=== PATIENT | male | born 1960 | race Caucasian/White ===

== ENCOUNTER → 2016-12-08 | Outpatient (CLI) | payer BC ==
[2016-12-08 13:33] LABS: CH 32.6; CHCM 33.5; HCT 49.9 % (39.0-53.0); HDW 2.37; HGB 16.6 gm/dL (13.0-17.5); MCH 32.5 pg (25.0-35.0); MCHC 33.3 g/dL (31.0-37.0); MCV 97.6 fL (80.0-100.0); Mean Platelet Volume 8.1; RBC 5.11 m/uL (4.30-5.90); RDW 12.6 % (11.5-15.5); WBC 6.9 k/uL (3.8-10.6)
[2016-12-08 13:37] LABS: ALT 30 U/L (21-72); AST 26 U/L (17-59); Alkaline Phosphatase 73 U/L (38-126); Anion Gap 9 mmol/L; Blood Urea Nitrogen 22 mg/dL (9-20); Calcium 9.5 mg/dL (8.4-10.2); Carbon Dioxide 23 mmol/L (22-30); Chloride 108 mmol/L (98-107); Glucose 81 mg/dL (74-99); Non-African American GFR(MDRD) >60 (>60 ml/min/1.73 sqM); Potassium 4.5 mmol/L (3.5-5.1); Sodium 140 mmol/L (137-145); Total Bilirubin 0.8 mg/dL (0.2-1.3); Total Protein 6.6 g/dL (6.3-8.2)
== END | disposition home or self-care (01) ==
LOC: LABWHC1 13:02
PROVIDERS: ATTEND Internal Medicine Clinical Cardiac Electrophysiology
DX: I48.1 Persistent atrial fibrillation (principal); I42.0 Dilated cardiomyopathy
CPT/HCPCS: 36415; 80053; 84443; 85027

== ENCOUNTER 2016-12-20 06:06 | Day surgery (SDC) | payer BC ==
[2016-12-19 09:14] VITALS: BMI 28.8
[~2016-12-20 06:06] MED LIST: SODIUM CHLORIDE 0.9% 1,000 ML IV SCH
[2016-12-20] MEDS ORDERED: IV FLUID CONTINUATION 1,000 ML IV ONE (07:08)
[2016-12-20] MEDS ORDERED: PHENYLEPHRINE-0.9% NACL SYG 1 MG/10 ML SYRINGE ONE (07:15)
[2016-12-20] MEDS ORDERED: LIDOCAINE 1% INJ 10MG/ML (20 ML MDV) ONE (07:15)
[2016-12-20] MEDS ORDERED: PROPOFOL 10 MG/ML 20 ML VIAL IV ONE (07:15)
[2016-12-20] MEDS ORDERED: LACTATED RINGERS 1,000 ML IV ONE (07:52)
--- NOTE | 2016-12-20 07:55 | P.PCN ---
Preoperative Diagnosis: Twelve-lead ECG preprocedure Patient was placed on telemetry and he appeared to have P waves there for twelve -lead ECG was performed Twelve-lead ECG shows atrial tachycardia short cycle length organized atrial activity that resembles P waves that he was not in sinus rhythm Electrical cardioversion for atrial fibrillation Diagnosis, symptomatic atrial fibrillation drug refractory 360 J biphasic shock was delivered in the AP configuration Wide complex tachycardia noted initially that spontaneously settled and subsided and patient remained in sinus rhythm thereafter Likely short burst of ventricular tachycardia followed by resumption of sinus rhythm Twelve-lead ECG postprocedure Sinus rhythm normal VA and QT interval of about 440 ms on dofetilide Plan Continue ELIQUIS carvedilol Lasix losartan and Crestor Aldactone Changes in medications Follow-up with Dr. Dominguez in 1 week Anesthesia: MAC Disposition: same day
[2016-12-20 11:00] VITALS: BP 126/73; PULSE 70; RESP 20
--- NOTE | 2016-12-20 13:12 | P.PCN ---
Preoperative Diagnosis: Twelve-lead ECG prior to procedure Patient was placed on telemetry and it appeared that he had P waves there for twelve-lead ECG was obtained This showed atrial fibrillation, organized rapid atrial tachycardia, not sinus rhythm Procedure Electrical cardioversion for atrial fibrillation, persistent, organized Symptomatic A. fib with tiredness and fatigue Successful electrical cardioversion with a 360 J biphasic shock On normal nonsustained ventricular tachycardia noted spontaneous termination Conversion to sinus rhythm successful Postprocedure 12-lead ECG Sinus mechanism normal MI and QT interval 440 ms Plan continue ELIQUIS carvedilol Lasix losartan Crestor and Aldactone Follow Dr. DALIA Dominguez in a week Anesthesia: MAC Disposition: same day
== END 2016-12-20 09:35 | disposition home or self-care (01) ==
LOC: CATHEP 06:06
PROVIDERS: ATTEND Internal Medicine Clinical Cardiac Electrophysiology
DX: I48.1 Persistent atrial fibrillation (principal); I11.0 Hypertensive heart disease with heart failure; I50.22 Chronic systolic (congestive) heart failure; I42.8 Other cardiomyopathies; E78.5 Hyperlipidemia, unspecified; Z82.49 Family history of ischemic heart disease and other diseases of the circulatory system; I25.10 Atherosclerotic heart disease of native coronary artery without angina pectoris; Z87.891 Personal history of nicotine dependence; I49.9 Cardiac arrhythmia, unspecified; G47.33 Obstructive sleep apnea (adult) (pediatric); M10.9 Gout, unspecified; B39.9 Histoplasmosis, unspecified; Z79.01 Long term (current) use of anticoagulants; Z79.899 Other long term (current) drug therapy; Z88.0 Allergy status to penicillin; Z88.8 Allergy status to other drugs, medicaments and biological substances; Z91.041 Radiographic dye allergy status
CPT/HCPCS: 93005; 92960; J2001; J2370; J2704

== ENCOUNTER → 2017-01-12 | Outpatient (CLI) | payer BC ==
[2017-01-12 09:25] LABS: Calcium 9.1 mg/dL (8.4-10.2); Potassium 4.1 mmol/L (3.5-5.1)
== END ==
LOC: LABWHC1 08:48
PROVIDERS: ATTEND Internal Medicine Interventional Cardiology
DX: I50.9 Heart failure, unspecified (principal); I48.91 Unspecified atrial fibrillation
CPT/HCPCS: 36415; 80048

== ENCOUNTER → 2017-01-24 | Outpatient (CLI) | payer BC ==
[2017-01-24 12:55] LABS: CH 33.2; CHCM 34.1; HDW 2.36; HGB 17.9 gm/dL (13.0-17.5); MCH 32.3 pg (25.0-35.0); MCHC 33.1 g/dL (31.0-37.0); MCV 97.8 fL (80.0-100.0); Mean Platelet Volume 8.1; RBC 5.53 m/uL (4.30-5.90); RDW 12.7 % (11.5-15.5); WBC 5.8 k/uL (3.8-10.6)
[2017-01-24 13:08] LABS: Anion Gap 10 mmol/L; Blood Urea Nitrogen 33 mg/dL (9-20); Calcium 9.5 mg/dL (8.4-10.2); Carbon Dioxide 26 mmol/L (22-30); Chloride 106 mmol/L (98-107); Glucose 115 mg/dL (74-99); Non-African American GFR(MDRD) 52 (>60 ml/min/1.73 sqM); Potassium 4.4 mmol/L (3.5-5.1); Sodium 142 mmol/L (137-145)
== END ==
LOC: LABWHC1 12:40
PROVIDERS: ATTEND Internal Medicine Interventional Cardiology
DX: I50.9 Heart failure, unspecified (principal)
CPT/HCPCS: 36415; 80048; 85027

== ENCOUNTER 2017-01-30 06:16 | Observation (INO) | payer BC ==
[2017-01-30] MEDS ORDERED: SODIUM CHLORIDE 0.9% 1,000 ML IV ONE (06:54)
[2017-01-30] MEDS ORDERED: fentaNYL (PF) 50 MCG/ML 2 ML AMP ONE (07:41)
[2017-01-30] MEDS ORDERED: NEOSTIGMINE 1 MG/ML 10 ML VIAL ONE (07:41)
[2017-01-30] MEDS ORDERED: ETOMIDATE 2 MG/ML 10 ML VIAL ONE (07:41)
[2017-01-30] MEDS ORDERED: PHENYLEPHRINE-0.9% NACL SYG 1 MG/10 ML SYRINGE ONE (07:41)
[2017-01-30] MEDS ORDERED: MIDAZOLAM 2 MG/2 ML VIAL ONE (07:41)
[2017-01-30] MEDS ORDERED: SUCCINYLCHOLINE CHLORIDE 100 MG/5 ML SYR IV ONE (07:41)
[2017-01-30] MEDS ORDERED: ROCURONIUM BROMIDE 10 MG/ML 10 ML VIAL IV ONE (07:41)
[2017-01-30] MEDS ORDERED: PROTAMINE SULFATE 10 MG/ML 5 ML VIAL IV ONE (07:41)
[2017-01-30] MEDS ORDERED: GLYCOPYRROLATE 0.2 MG/ML 2 ML VIAL ONE (07:41)
[2017-01-30] MEDS ORDERED: FUROSEMIDE 10 MG/ML 2 ML VIAL ONE (07:41)
[2017-01-30] MEDS ORDERED: ePHEDrine 50 MG/ML 1 ML AMP ONE (07:41)
[2017-01-30] MEDS ORDERED: HEPARIN SODIUM,PORCINE 5,000 UNIT/ML 1 ML VIAL ONE (07:41)
--- NOTE | 2017-01-30 08:15 | P.PCN ---
Preoperative Diagnosis: Preprocedure ICD interrogation with reprogramming Patient has a dual-chamber [employer] medical ICD. RV threshold 0.75 V at 0.5 ms R waves 12 mV, pacing impedance 550 ohms and high-voltage impedance 71 ohms. Atrial pacing impedance 450 ohms, atrial sensing 3.3 mV Device was reprogrammed to DDD mode, 50 PPM ICD therapies were turned off prior to the procedure Postoperative Diagnosis: Procedure(s) Performed: Implants: Indications for Procedure: Operative Findings: Description of Procedure:
[2017-01-30] MEDS ORDERED: LIDOCAINE 2% INJ 20 MG/ML SQ ONE (08:25)
[2017-01-30] MEDS ORDERED: HEPARIN SODIUM,PORCINE/D5W PMX 25,000 UNIT in DEXTROSE/WATER 1 500ML.BAG IV ONE (08:37)
[2017-01-30] MEDS ORDERED: HEPARIN SODIUM (1,000 UNIT/ML) 1,000 UNIT in SODIUM CHLORIDE 0.9% 1,000 ML IRRIGATION ONE ×2 (09:00→12:15)
[2017-01-30] MEDS ORDERED: HEPARIN SODIUM 1,000 UNIT/ML VIAL IV ONE (09:21)
[2017-01-30] MEDS ORDERED: ACETAMINOPHEN IV (For NPO) 1,000 MG in EMPTY BAG 1 BAG IVPB ONE (13:05)
[2017-01-30] MEDS ORDERED: ACETAMINOPHEN TAB 325 MG TAB PO PRN (13:05)
[2017-01-30] MEDS ORDERED: HYDROcodone/APAP 5-325MG 1 EACH TAB PO PRN (13:05)
[2017-01-30] MEDS: LACTATED RINGERS 1,000 ML IV SCH (16:42)
[2017-01-30] MEDS: CARVEDILOL 6.25 MG TAB PO SCH (16:42)
[2017-01-30] MEDS ORDERED: ONDANSETRON 4 MG/2 ML VIAL IVP PRN (16:43)
[2017-01-30] MEDS: SODIUM CHLORIDE 0.9% 1,000 ML IV SCH (17:04)
[2017-01-30 18:36] VITALS: BMI 27.3
[2017-01-30] MEDS ORDERED: FUROSEMIDE 20 MG TAB PO SCH (21:00)
[2017-01-30] MEDS ORDERED: LOSARTAN 25 MG TAB PO SCH (21:00)
[2017-01-30] MEDS ORDERED: SPIRONOLACTONE 25 MG TAB PO SCH (21:00)
[2017-01-30] MEDS: APIXABAN 5 MG TAB PO SCH (21:08)
[2017-01-31] MEDS: LACTATED RINGERS 1,000 ML IV SCH (03:42)
[2017-01-31] MEDS: SODIUM CHLORIDE 0.9% 1,000 ML IV SCH (03:43)
[2017-01-31] MEDS: CARVEDILOL 6.25 MG TAB PO SCH (06:39)
[2017-01-31 07:05] LABS: Basophils % (A) 0 %; CH 32.8; CHCM 32.8; Eosinophils % (A) 0 %; HCT 49.8 % (39.0-53.0); HDW 2.08; HGB 16.1 gm/dL (13.0-17.5); Luc # (Auto) 0.13; Luc % (Auto) 1; Lymphocytes # (A) 0.6 k/uL (1.0-4.8); Lymphocytes % (A) 6 %; MCH 32.3 pg (25.0-35.0); MCHC 32.3 g/dL (31.0-37.0); MCV 100.2 fL (80.0-100.0); Mean Platelet Volume 8.3; Monocytes # (A) 0.7 k/uL (0-1.0); Monocytes % (A) 7 %; Neutrophils # (A) 8.8 k/uL (1.3-7.7); Neutrophils % (A) 86 %; RBC 4.97 m/uL (4.30-5.90); RDW 12.9 % (11.5-15.5); WBC 10.2 k/uL (3.8-10.6); WBC (Perox) 10.33
[2017-01-31 07:26] LABS: Calcium 8.6 mg/dL (8.4-10.2); Potassium 4.7 mmol/L (3.5-5.1)
--- NOTE | 2017-01-31 07:57 | P.PCN ---
Preoperative Diagnosis: Indication for the procedure Atrial fibrillation, sustained, symptomatic with worsening heart failure Procedures performed Preprocedure dual-chamber ICD interrogation with reprogramming, dictated separately Hemodynamic monitoring and sampling via right femoral artery cannula/sheaths Comprehensive diagnostic EP study Coronary sinus pacing and recording Programmed stimulation following Isuprel Intracardiac echocardiography Left and right transseptal catheterization Antral isolation of the pulmonary veins, right superior anteriorly, right inferior inferiorly and left superior at the roof SVT ablation/linear A. fib ablation along the anterior roof and termination of the tachycardia Postprocedure dual-chamber ICD interrogation with reprogramming Postoperative Diagnosis: Procedure(s) Performed: Implants: Disposition: floor Indications for Procedure: Operative Findings: Description of Procedure:
--- NOTE | 2017-01-31 08:00 | P.DS ---
Providers Date of admission: 01/30/17 19:41 Attending physician: Steven Casiano Primary care physician: Blanca Cazares [facility] Course: Patient is doing well. He is sitting up at the age of the bed eating breakfast. Throat is dry but no odynophagia no chest discomfort no shortness of breath no cough. Groin site is healed well and no dizziness or palpitations On telemetry rhythm is regular On examination Afebrile 97.2F, pulse rate in the 60s, blood pressure 90/51 mmHg Breath sounds are normal no rhonchi no crackles Heart sounds are normal normal S1 normal S2 no murmurs Abdomen soft Impression Persistent symptomatic atrial fibrillation Severe cardiomyopathy, nonischemic Severe class III heart failure during atrial fibrillation Status post linear A. fib ablation, roofline, as well as PVI Patient is in sinus rhythm Plan Resume all cardiac medications and likely discharge later today if he remains stable Patient Condition at Discharge: Stable Plan - Discharge Summary New Discharge Prescriptions: No Action Rosuvastatin [Crestor] 5 mg PO Q48H Furosemide [Lasix] 40 mg PO DAILY Losartan [Cozaar] 25 mg PO HS Spironolactone [Aldactone] 25 mg PO HS Digoxin [Digoxin] 125 mcg PO DAILY Furosemide [Lasix] 20 mg PO HS Escitalopram [Lexapro] 10 mg PO DAILY Carvedilol [Coreg] 6.25 mg PO BID Apixaban [Eliquis] 5 mg PO BID Discharge Medication List Rosuvastatin [Crestor] 5 mg PO Q48H 10/25/14 [History] Furosemide [Lasix] 40 mg PO DAILY 12/15/14 [History] Losartan [Cozaar] 25 mg PO HS 01/13/15 [History] Spironolactone [Aldactone] 25 mg PO HS 01/23/15 [History] Digoxin [Digoxin] 125 mcg PO DAILY 01/26/17 [History] Apixaban [Eliquis] 5 mg PO BID 01/30/17 [History] Carvedilol [Coreg] 6.25 mg PO BID 01/30/17 [History] Escitalopram [Lexapro] 10 mg PO DAILY 01/30/17 [History] Furosemide [Lasix] 20 mg PO HS 01/30/17 [History]
[2017-01-31] MEDS: APIXABAN 5 MG TAB PO SCH (08:35)
[2017-01-31] MEDS ORDERED: ESCITALOPRAM 10 MG TAB PO SCH (09:00)
[2017-01-31] MEDS ORDERED: DIGOXIN 125 MCG TAB PO SCH (09:00)
[2017-01-31] MEDS ORDERED: FUROSEMIDE 40 MG TAB PO SCH (09:00)
--- NOTE | 2017-01-31 09:18 | CE ---
DATE OF SERVICE: 69-year-old male patient with a history of atrial fibrillation. He has undergone atrial fibrillation ablation in the past. He came back with recurrence and he was brought in for ( ) and he is asymptomatic with tiredness, fatigue and shortness of breath. This is sustained. He was brought to the EP lab in a fasting state. Written informed consent was obtained prior to the procedure. The dual-chamber ICD was interrogated prior to the procedure and programmed. Note is dictated separately previously. The right and left groins were prepped and draped as per protocol and 1% lidocaine was used for local anesthesia. Two venous sheaths in the right femoral vein, 2 venous sheaths in the left femoral vein and right femoral arterial line were placed. Hemodynamic monitoring was performed and sampling was performed through the procedure, ACT was maintained above 300 while on heparin. At the end of the procedure, the heparin was reversed with Protamine. Diagnostic catheter was placed in the right in the high right atrial catheter, His bundle area and right ventricle and the coronary sinus. The patient was in atrial fibrillation (organized) with a cycle length of about 178 ms). The coronary sinus catheter was placed. The activation pattern was somewhat lateral to medial (likely). The QRS width is 105 ms, AH interval was 48 ms, the AH interval in sinus rhythm was 112 ms, HV interval was 48 ms. Intracardiac echocardiography was performed. The left atrial map of the pulmonary venous map was made anatomically and later ( ) anatomic information superimposed on this. First 3D mapping of the right atrium was performed. There was broad area activation along the anterior lateral right atrial wall. The coronary sinus was mapped and the coronary sinus activation was made. Left and right transseptal catheterization was performed. The LA pressure was elevated to ( ) mmHg using intracardiac echocardiography ( ) was punctured and the sheath was placed. Via this, 3D activation mapping was performed. There were multiple areas of early activation. One was along the 6:00 portion of the right inferior pulmonary vein both anteriorly and posteriorly and the next was outside right along the superior pulmonary veins on the end anteriorly. There is an area of activation in the middle of the roof superiorly and a small area along the roof of the left superior pulmonary vein. Mapping was performed along the roof and when the roof line was made, in the middle of the roof line, the tachycardia terminated (somewhat anterior roof line). The patient remained in sinus rhythm thereafter. ( ) cycle length tachycardia was induced later when moving along the lateral aspect of the roof line, and roof line was completed thereafter. There was no other arrhythmias induced. ( ) mapping of the pulmonary veins was performed and radiofrequency ablation was applied on the antrum of the pulmonary veins in the sites mentioned above, including the anterior aspect of the right superior, the inferior pole of the right inferior and the roof of left superior pulmonary veins. The pulmonary veins were rendered completely quiescent. Following that, Isuprel was infused and no other arrhythmias were induced. Atrial pacing was performed from the high right atrium, coronary sinus, the right ventricle. Burst stimulation was performed. No other arrhythmias were induced. All catheters were removed. At the end of the procedure heparin was reversed and the patient was extubated. Following that, dual-chamber ICD was interrogated. Atrial packing threshold 0.75 v at 0.5 ms, P waves and during sinus rhythm was 2.5 mV, pacing impedance 430 ohms, the RV pacing threshold 0.5 v at 0.5 ms, R waves were 12 mV, and pacing impedance of 130 ohms, high-voltage impedance 64 ohms. The device was then reprogrammed ( ) parameters. Patient tolerated the procedure well without any acute complications. RESULT: Successful ablation for atrial fibrillation, organized with termination of the tachycardia along the roof line anteriorly, antral isolation of the pulmonary veins. Patient tolerated the procedure well without any acute complications.
[2017-01-31 12:54] VITALS: BP 107/69; PULSE 61; RESP 16; TEMP 97.7
[2017-01-31] MEDS ORDERED: ATORVASTATIN 10 MG TAB PO SCH (22:00)
== END 2017-01-31 13:48 | disposition home or self-care (01) ==
LOC: CATHEP 06:16 → 6SEL 12:44 → CATHEP 19:41
PROVIDERS: ADMIT Internal Medicine Clinical Cardiac Electrophysiology; ATTEND Internal Medicine Clinical Cardiac Electrophysiology
DX: I48.1 Persistent atrial fibrillation (principal); I42.9 Cardiomyopathy, unspecified; I47.1 Supraventricular tachycardia; Z88.0 Allergy status to penicillin; Z88.8 Allergy status to other drugs, medicaments and biological substances; Z88.3 Allergy status to other anti-infective agents; Z91.013 Allergy to seafood; E78.5 Hyperlipidemia, unspecified; I11.0 Hypertensive heart disease with heart failure; I50.9 Heart failure, unspecified; G47.30 Sleep apnea, unspecified; F32.9 Major depressive disorder, single episode, unspecified; Z79.899 Other long term (current) drug therapy; Z79.01 Long term (current) use of anticoagulants
CPT/HCPCS: 94760; 85347; 93623; 93662; 93613; 93656; 80048; 85025; G0378 ×2; C1769 ×3; C1894 ×3; C1730 ×2; C1731; C1893; C1759; C1732; J2001; J2250; J2720; J1644 ×3; J1940; J2710; J2405; J3010; J0131; J2370; J0330

== ENCOUNTER 2017-02-03 22:34 | Inpatient (IN) | payer BC ==
[2017-02-03] MEDS ORDERED: DILTIAZEM 125 MG in SODIUM CHLORIDE 0.9% 100 ML IV ONE (22:48)
--- NOTE | 2017-02-03 22:53 | ED ---
General Adult HPI - General Chief complaint: Arrhythmia/Palpitations Stated complaint: Chest Pain Time Seen by Provider: 02/03/17 22:40 Source: patient, family, RN notes reviewed Mode of arrival: wheelchair Limitations: no limitations - History of Present Illness Initial comments: This is a 56-year-old male who presents to the emergency department complaining of having his heart race and being somewhat short of breath. Patient has a history of atrial fibrillation he just got ablated recently. Patient states he is extremely weak and fatigued as well. Patient denies any fever patient states she has had a cough but has been nonproductive. Patient denies any chest pain. Patient states she has had recent weight gain. Patient states lying flat makes shortness of breath worse. Patient denies any abdominal pain patient denies any nausea vomiting diarrhea. Patient denies any sweating episodes. Patient denies being lightheaded or dizzy. - Related Data Home Medications Medication Instructions Recorded Confirmed Losartan [Cozaar] 25 mg PO DAILY 01/13/15 02/03/17 Spironolactone [Aldactone] 25 mg PO DAILY 01/23/15 02/03/17 Digoxin [Digoxin] 125 mcg PO DAILY 01/26/17 02/03/17 Apixaban [Eliquis] 5 mg PO BID 01/30/17 02/03/17 Carvedilol [Coreg] 6.25 mg PO BID-W/MEALS 01/30/17 02/03/17 Escitalopram [Lexapro] 10 mg PO DAILY 01/30/17 02/03/17 Colchicine [Colcrys] 0.6 mg PO BID 02/03/17 02/03/17 Famotidine [Pepcid] 20 mg PO DAILY 02/03/17 02/03/17 Furosemide [Lasix] 40 mg PO BID 02/03/17 02/03/17 Rosuvastatin Calcium [Crestor] 5 mg PO Q48H 02/03/17 02/03/17 Allergies Allergy/AdvReac Type Severity Reaction Status Date / Time Iodine and Iodide Containing Allergy Swelling Verified 02/03/17 23:05 Produc Penicillins Allergy Unknown Verified 02/03/17 23:05 Childhood shellfish derived [Shellfish] Allergy Swelling Verified 02/03/17 23:05 dofetilide [From Tikosyn] AdvReac V-Tach/Kidney Verified 02/03/17 23:05 Failure Review of Systems ROS Statement: Those systems with pertinent positive or pertinent negative responses have been documented in the HPI. ROS Other: All systems not noted in ROS Statement are negative. Past Medical History Past Medical History: Atrial Fibrillation, Atrial Flutter, Coronary Artery Disease (CAD), Chest Pain / Angina, Hyperlipidemia, Hypertension, Sleep Apnea/ CPAP/BIPAP Additional Past Medical History / Comment(s): ,HX OF GOUT, , USES C PAP AT NIGHT , histoplasmosis LT EYE. non sustained VT, SEE DR HINES'S H&P. VERTIGO. History of Any Multi-Drug Resistant Organisms: None Reported Past Surgical History: AICD, Cardiac Ablation, EPS, Heart Catheterization Additional Past Surgical History / Comment(s): HEART CATH X2; WISDOM TEETH REMOVED; CARDIOVERSION X3 ATTEMPTS - LAST 12/15/14 Past Anesthesia/Blood Transfusion Reactions: No Reported Reaction Additional Past Anesthesia/Blood Transfusion Reaction / Comment(s): VERTIGO Type of Cardiac Device: AICD Device Placement Date:: 01/26/2015 Past Psychological History: No Psychological Hx Reported Smoking Status: Former smoker Past Alcohol Use History: None Reported Additional Past Alcohol Use History / Comment(s): STARTED SMOKING AT AGE 18 WORKED UP TO 1 PPD, QUIT 1989 Past Drug Use History: None Reported - Past Family History Mother Family Medical History: Cancer, CVA/TIA Additional Family Medical History / Comment(s): BREAST CA Father Family Medical History: Cancer Additional Family Medical History / Comment(s): LEUKEMIA General Exam - General Exam Comments Initial Comments: GENERAL: Patient is well-developed and well-nourished. Patient is nontoxic and well- hydrated and is in mild distress. ENT: Neck is soft and supple. No significant lymphadenopathy is noted. Oropharynx is clear. Moist mucous membranes. Neck has full range of motion without eliciting any pain. EYES: The sclera were anicteric and conjunctiva were pink and moist. Extraocular movements were intact and pupils were equal round and reactive to light. Eyelids were unremarkable. PULMONARY: Unlabored respirations. Good breath sounds bilaterally. Slight crackles in the right base CARDIOVASCULAR: Patient's heart rate is irregular and about 130 beats a minute. ABDOMEN: Soft and nontender with normal bowel sounds. No palpable organomegaly was noted. There is no palpable pulsatile mass. SKIN: Skin is clear with no lesions or rashes and otherwise unremarkable. NEUROLOGIC: Patient is alert and oriented x3. Cranial nerves II through XII are grossly intact. Motor and sensory are also intact. Normal speech, volume and content. Symmetrical smile. MUSCULOSKELETAL: Normal extremities with adequate strength and full range of motion. No lower extremity swelling or edema. No calf tenderness. LYMPHATICS: No significant lymphadenopathy is noted PSYCHIATRIC: Normal psychiatric evaluation. Normal interpersonal interactions appears functionally intact in deals appropriately with others. No signs of depression. No signs of anxiety. Limitations: no limitations Course Vital Signs 02/03/17 02/03/17 22:37 23:37 Temperature 98.3 F Pulse Rate 136 H 128 H Respiratory 20 20 Rate Blood Pressure 102/75 94/63 O2 Sat by Pulse 96 95 Oximetry Medical Decision Making - Medical Decision Making EKG showed patient has atrial flutter at 144 beats a minute with a QRS of 14 Q- T intervals 298 QTC is 461. Patient has multiple PVCs as well. It is potentially a 2-1 AV block. I placed the patient a Cardizem drip. I spoke with Dr. Alberto Dominguez did come in to see the patient. Chest x-ray was done the chest x-ray did not show any failure. Patient's troponin was elevated I may Dr. Dominguez aware of this. We will repeat troponins in the morning. I spoke with Dr. Bravo's nurse practitioner admitted the patient and wrote admitting orders. I continued Cardizem on the floor. - Lab Data Result diagrams: 02/03/17 22:53 02/03/17 22:53 Lab Results 02/03/17 02/03/17 02/03/17 Range/Units 22:53 22:53 22:53 WBC 7.8 (3.8-10.6) k/uL RBC 4.61 (4.30-5.90) m/uL Hgb 15.5 (13.0-17.5) gm/dL Hct 44.1 (39.0-53.0) % MCV 95.5 (80.0-100.0) fL MCH 33.6 (25.0-35.0) pg MCHC 35.1 (31.0-37.0) g/dL RDW 12.9 (11.5-15.5) % Plt Count 164 (150-450) k/uL Neutrophils % 73 % Lymphocytes % 14 % Monocytes % 8 % Eosinophils % 3 % Basophils % 0 % Neutrophils # 5.6 (1.3-7.7) k/uL Lymphocytes # 1.1 (1.0-4.8) k/uL Monocytes # 0.6 (0-1.0) k/uL Eosinophils # 0.2 (0-0.7) k/uL Basophils # 0.0 (0-0.2) k/uL PT (9.0-12.0) sec INR (<1.1) APTT (22.0-30.0) sec Sodium 137 (137-145) mmol/L Potassium 4.2 (3.5-5.1) mmol/L Chloride 107 (98-107) mmol/L Carbon Dioxide 22 (22-30) mmol/L Anion Gap 8 mmol/L BUN 23 H (9-20) mg/dL Creatinine 1.13 (0.66-1.25) mg/dL Est GFR (MDRD) Af Amer >60 (>60 ml/min/1.73 sqM) Est GFR (MDRD) Non-Af >60 (>60 ml/min/1.73 sqM) Glucose 95 (74-99) mg/dL Calcium 9.1 (8.4-10.2) mg/dL Magnesium 1.7 (1.6-2.3) mg/dL Total Bilirubin 0.9 (0.2-1.3) mg/dL AST 31 (17-59) U/L ALT 42 (21-72) U/L Alkaline Phosphatase 101 (38-126) U/L Total Creatine Kinase 63 (55-170) U/L CK-MB (CK-2) 4.1 H* (0.0-2.4) ng/mL CK-MB (CK-2) Rel Index 6.5 Troponin I 1.230 H* (0.000-0.034) ng/mL Total Protein 6.1 L (6.3-8.2) g/dL Albumin 3.3 L (3.5-5.0) g/dL 02/03/17 Range/Units 22:53 WBC (3.8-10.6) k/uL RBC (4.30-5.90) m/uL Hgb (13.0-17.5) gm/dL Hct (39.0-53.0) % MCV (80.0-100.0) fL MCH (25.0-35.0) pg MCHC (31.0-37.0) g/dL RDW (11.5-15.5) % Plt Count (150-450) k/uL Neutrophils % % Lymphocytes % % Monocytes % % Eosinophils % % Basophils % % Neutrophils # (1.3-7.7) k/uL Lymphocytes # (1.0-4.8) k/uL Monocytes # (0-1.0) k/uL Eosinophils # (0-0.7) k/uL Basophils # (0-0.2) k/uL PT 11.8 (9.0-12.0) sec INR 1.2 (<1.1) APTT 26.1 (22.0-30.0) sec Sodium (137-145) mmol/L Potassium (3.5-5.1) mmol/L Chloride (98-107) mmol/L Carbon Dioxide (22-30) mmol/L Anion Gap mmol/L BUN (9-20) mg/dL Creatinine (0.66-1.25) mg/dL Est GFR (MDRD) Af Amer (>60 ml/min/1.73 sqM) Est GFR (MDRD) Non-Af (>60 ml/min/1.73 sqM) Glucose (74-99) mg/dL Calcium (8.4-10.2) mg/dL Magnesium (1.6-2.3) mg/dL Total Bilirubin (0.2-1.3) mg/dL AST (17-59) U/L ALT (21-72) U/L Alkaline Phosphatase (38-126) U/L Total Creatine Kinase (55-170) U/L CK-MB (CK-2) (0.0-2.4) ng/mL CK-MB (CK-2) Rel Index Troponin I (0.000-0.034) ng/mL Total Protein (6.3-8.2) g/dL Albumin (3.5-5.0) g/dL Critical Care Time Critical Care Time: Yes Total Critical Care Time: 35 Disposition Clinical Impression: Atrial fibrillation with rapid ventricular response, Elevated troponin Disposition: ADMITTED IP TO THIS HOSP Referrals: Blanca Porter III, MD [Primary Care Provider] - 1-2 days Time of Disposition: 23:51
[2017-02-03 23:01] LABS: Basophils % (A) 0 %; CH 33.5; CHCM 35.3; Eosinophils # (A) 0.2 k/uL (0-0.7); Eosinophils % (A) 3 %; HCT 44.1 % (39.0-53.0); HDW 2.39; HGB 15.5 gm/dL (13.0-17.5); Luc # (Auto) 0.23; Luc % (Auto) 3; Lymphocytes # (A) 1.1 k/uL (1.0-4.8); Lymphocytes % (A) 14 %; MCH 33.6 pg (25.0-35.0); MCHC 35.1 g/dL (31.0-37.0); MCV 95.5 fL (80.0-100.0); Monocytes # (A) 0.6 k/uL (0-1.0); Monocytes % (A) 8 %; Neutrophils # (A) 5.6 k/uL (1.3-7.7); Neutrophils % (A) 73 %; RBC 4.61 m/uL (4.30-5.90); RDW 12.9 % (11.5-15.5); WBC 7.8 k/uL (3.8-10.6); WBC (Perox) 7.41
[2017-02-03 23:11] LABS: INR 1.2 (<1.1); Partial Thromboplastin Time 26.1 sec (22.0-30.0); Prothrombin Time 11.8 sec (9.0-12.0)
[2017-02-03 23:16] LABS: ALT 42 U/L (21-72); AST 31 U/L (17-59); Alkaline Phosphatase 101 U/L (38-126); Anion Gap 8 mmol/L; Blood Urea Nitrogen 23 mg/dL (9-20); Calcium 9.1 mg/dL (8.4-10.2); Carbon Dioxide 22 mmol/L (22-30); Chloride 107 mmol/L (98-107); Glucose 95 mg/dL (74-99); Magnesium 1.7 mg/dL (1.6-2.3); Non-African American GFR(MDRD) >60 (>60 ml/min/1.73 sqM); Potassium 4.2 mmol/L (3.5-5.1); Sodium 137 mmol/L (137-145); Total Bilirubin 0.9 mg/dL (0.2-1.3); Total Protein 6.1 g/dL (6.3-8.2)
[2017-02-03 23:40] LABS: Creatine Kinase MB 4.1 ng/mL (0.0-2.4); Troponin I 1.23 ng/mL (0.000-0.034)
[2017-02-03] MEDS ORDERED: NITROGLYCERIN SL TABS 0.4 MG TAB SUBLINGUAL PRN (23:51)
--- NOTE | 2017-02-03 23:52 | XR ---
EXAM: XR Chest, 2 Views CLINICAL HISTORY: Reason: dysrhythmia. Recent cardiac ablation, hx of a-fib, CAD, hypertension TECHNIQUE: Frontal and lateral views of the chest. COMPARISON: Chest radiograph on 01/27/2015 FINDINGS: Lungs/pleura: Normal. No focal consolidation. No pleural effusion or pneumothorax. Heart/mediastinum: Left pacemaker in place. Slightly increased prominence of the cardiac silhouette. Soft tissues: Unremarkable. Bones: No acute fracture. Upper abdomen: Normal. IMPRESSION: Slightly increased size of the cardiac silhouette compared to prior exam in 2014. No acute abnormality.
[2017-02-04 00:47] VITALS: BMI 29.9
[2017-02-04] MEDS: ATORVASTATIN 10 MG TAB PO SCH (05:24)
[2017-02-04 05:56] LABS: Cholesterol 121 mg/dL (<200); HDL Cholesterol 40 mg/dL (40-60); Triglycerides 95 mg/dL (<150)
[2017-02-04 06:20] LABS: Creatine Kinase MB 3.4 ng/mL (0.0-2.4); Troponin I 1.18 ng/mL (0.000-0.034)
[2017-02-04] MEDS ORDERED: CARVEDILOL 6.25 MG TAB PO SCH (07:30)
[2017-02-04] MEDS ORDERED: DIGOXIN 125 MCG TAB PO SCH (09:00)
[2017-02-04] MEDS ORDERED: ASPIRIN 325 MG TAB PO SCH (09:00)
--- NOTE | 2017-02-04 09:23 | CONS ---
DATE OF CONSULTATION: This is a 56-year-old gentleman with a known diagnosis of nonischemic cardiomyopathy with ejection fraction in the 25 to 30% range who has ICD. He recently underwent ablation of atrial tachycardia performed by: Dr. Casiano on 01/30/2017. He was discharged on 02/11 and he did fairly well until today when he started having increasing shortness of breath, fatigue and then noted that his heart rate was in the 140s. I advised him to come to the emergency room and evaluated him in the ER. He is in atrial flutter. The rate is in the 130 to 140 range, with Cardizem the rate has come down. The patient is not in any overt heart failure but appears to be extremely exhausted and fatigued. He does have palpitations, but denies any chest pain. The pleuritic pain that he had soon after the procedure seems to have resolved as well. He is resting comfortably, but with little activity he feels quite short of breath. PAST MEDICAL HISTORY: Please refer to the recent notes by Dr. Casiano that outlined most of his conditions. In summary, he has nonischemic cardiomyopathy, has had previous flutter ablation, atrial fibrillation, ablation in the form of pulmonary vein isolation. He is also known to have nonischemic cardiomyopathy and has an ICD. Medications at home include: 1. Aldactone 25 mg daily. 2. Colchicine 0.6 mg b.i.d. 3. Coreg 6.125 mg b.i.d. 4. Crestor 10 mg daily. 5. Digoxin 125 mcg daily. 6. Eliquis 5 mg b.i.d. 7. Lasix 40 mg in the morning and 20 mg in the afternoon. 8. Lexapro. 9. Losartan 25 mg daily. ALLERGIES: HE IS ALLERGIC TO DOFETELIDE AND PENICILLIN. On examination, blood pressure is 104/70, pulse rate is about 130, irregular. HEENT: Unremarkable. Fundus was not examined by me. Neck is supple. There is JVD of at least 1 cm. No carotid bruit. Heart exam reveals S1, S2 with tachycardia. There is no significant rub, murmur or gallop. Lungs reveal bilateral fairly decent air entry. ABDOMEN: Soft, nontender. Lower extremities reveal diminished pulses. CENTRAL NERVOUS SYSTEM: Grossly no focal deficits. EKG revealed atrial flutter with 2:1 block with isolated PVCs. IMPRESSION: 1. Atrial flutter with 2:1 conduction. 2. Nonischemic cardiomyopathy. 3. Pulmonary isolation and SVT ablation. 4. History of previous flutter ablation, atrial fibrillation ablation as well. RECOMMENDATIONS: I am recommending that we will hospitalize him with intravenous Cardizem drip, keep him n.p.o. and consider electrical cardioversion tomorrow after discussion with Dr. Casiano. We will resume his medications and obtain electrolytes and also digoxin level. Prognosis remains guarded. I discussed my thoughts in detail with the patient and his Carina. Thank you very much for the consult.
[2017-02-04] MEDS ORDERED: DEXTROSE 5% IN WATER 100 ML with AMIODARONE 150 MG IV ONE (09:44)
[2017-02-04] MEDS ORDERED: AMIODARONE 450 MG in DEXTROSE 5% IN WATER 250 ML IV SCH ×2 (09:45)
[2017-02-04] MEDS: APIXABAN 5 MG TAB PO SCH ×2 (09:50→20:36)
[2017-02-04] MEDS: ASPIRIN 81 MG CHEW PO SCH (09:50)
[2017-02-04] MEDS: COLCHICINE 0.6 MG TAB PO SCH ×2 (09:50→20:36)
[2017-02-04] MEDS: SPIRONOLACTONE 25 MG TAB PO SCH (09:51)
[2017-02-04] MEDS: ESCITALOPRAM 10 MG TAB PO SCH (09:51)
[2017-02-04 11:11] LABS: Digoxin 0.6 ng/mL; Magnesium 1.7 mg/dL (1.6-2.3)
[2017-02-04 12:21] LABS: Creatine Kinase MB 3.1 ng/mL (0.0-2.4)
[2017-02-04] MEDS: CARVEDILOL 3.125 MG TAB PO SCH ×2 (14:10→20:36)
[2017-02-04] MEDS: FAMOTIDINE 20 MG TAB PO SCH (14:10)
[2017-02-04] MEDS: MAGNESIUM SULFATE-D5W PMX 1 GM in DEXTROSE/WATER 1 100ML.BAG IVPB SCH ×2 (14:10→15:45)
[2017-02-04] MEDS: LOSARTAN 25 MG TAB PO SCH (14:10)
[2017-02-04] MEDS: AMIODARONE 200 MG TAB PO SCH ×2 (16:43→20:36)
--- NOTE | 2017-02-04 22:50 | HP ---
DATE OF ADMISSION: 02/04/2017 HISTORY OF PRESENT ILLNESS: Mr. Zaragoza is a 56-year-old male with a past medical history of atrial fibrillation, atrial flutter, coronary artery disease, hypertension, hyperlipidemia, sleep apnea, who came into the hospital due to irregular heart beat and having mild difficulty in breathing. Patient states that he has history of atrial fibrillation and had an ablation done recently and he has been checking his vitals at home and found that his heart rate has been in 140s and he checked a couple of times but still his heart rate was pretty high and he was having mild difficulty in breathing and so he called his wellness nurse, who advised him to come to the hospital. The patient denies having any chest pain and any dizziness loss of consciousness, syncope. Patient does not have any other active complaints. REVIEW OF SYSTEMS: CONSTITUTIONAL: Denies any fever, chills, or rigors. RESPIRATORY: No cough. Mild difficulty in breathing. CARDIAC: No chest pain. No palpitations. GI: No nausea, vomiting, or diarrhea. : No dysuria or hematuria. HEMATOLOGICAL: No history of recurrent infections or easy bleeding or bruising. ENDOCRINE: Positive for history of hypertension. FLOOR INSTALLATION MECHANIC: No loss of consciousness, dizziness, headaches or neurological deficits. MUSCULOSKELETAL: No joint swellings or pain. ENT: Denies having any runny nose or any blurring of vision. All 13 review of systems are done and negative except for the ones mention in the HPI. PAST MEDICAL HISTORY: 1. Significant for atrial fibrillation, status post cardioversion and ablation and ICD placement. 2. Coronary artery disease. 3. Hypertension. 4. Hyperlipidemia. 5. Obstructive sleep apnea. PAST SURGICAL HISTORY: AICD. Cardiac ablation and cardioversion done times three. SOCIAL HISTORY: Former smoker and quit in 1989. Occasional alcohol. No history of intravenous drug abuse. FAMILY HISTORY: States that his father has history of coronary artery disease and mother has breast cancer and stroke. ALLERGIES: IODINE AND IODINE -CONTAINING PRODUCTS, PENICILLINS, SHELLFISH AND DOFETELIDE. On examination, patient's vital, heart rate between 70 to 90, respiratory rate 16, blood pressure 121/76, saturating at 96% on room air. GENERAL EXAMINATION: Well developed and well-nourished appears to be no acute distress. HEAD: Atraumatic, normocephalic. EYES: Pupils round and reactive to light. No pallor. No icterus. NECK: No JVD. No thyromegaly. CARDIOVASCULAR: Irregularly irregular, tachycardic. LUNGS: Bilateral breath sounds are positive. No wheeze or crackles. Abdomen soft, nontender. Bowel sounds positive. EXTREMITIES: No edema. No cyanosis. No clubbing. ( ). CENTRAL NERVOUS SYSTEM: Awake, alert and oriented times three. MUSCULOSKELETAL: No joint swelling or ( ). PSYCHIATRIC: Appropriate mood and affect. SKIN: No rash. Patient labs: White count of 7.8, hemoglobin 15.5, platelets 154. Sodium is 137, potassium 4.2, chloride 107, bicarb 22, BUN 23, creatinine 1.13, troponin I 1.2301, 0.180 and 1 magnesium is 1.7. Dig. Level is 0.60 Patient's home medications: 1. Cozaar 25 mg p.o. daily. 2. Spironolactone 25 mg p.o. daily. 3. Digoxin 125 mcg p.o. daily. 4. Lexapro 10 mg p.o. daily. 5. Coreg 6.25 mg p.o. b.i.d. 6. Eliquis 5 mg p.o. b.i.d. 7. Atorvastatin 5 mg p.o. every 48 hours. 8. Pepcid 20 mg p.o. daily. 9. Lasix 40 mg p.o. b.i.d. 10. Colchicine 0.6 mg p.o. b.i.d. ASSESSMENT AND PLAN: 1. Atrial flutter with 2:1 conduction. 2. Previous history of atrial fibrillation and atrial flutter, status post ablation and cardioversion x3. 3. Non-Ischemic cardiomyopathy. 4. History of coronary artery disease. 5. Hypertension. 6. Hyperlipidemia. 7. Obstructive sleep apnea. 8. History of heart catheterization x2. 9. Status post AICD placement. PLAN: Patient was started on amiodarone drip as per cardiology recommendations and they are planning to consider cardioversion after discussing with Dr. Casiano who is his EP physician. We will continue with the rest of his home medications and further recommendations to follow depending up on the progress of the patient.
[2017-02-05 06:05] LABS: Basophils % (A) 0 %; CHCM 35.2; Eosinophils # (A) 0.2 k/uL (0-0.7); Eosinophils % (A) 2 %; HCT 45.4 % (39.0-53.0); HDW 2.44; HGB 15.8 gm/dL (13.0-17.5); Luc # (Auto) 0.24; Luc % (Auto) 3; Lymphocytes # (A) 0.8 k/uL (1.0-4.8); Lymphocytes % (A) 10 %; MCH 32.7 pg (25.0-35.0); MCHC 34.8 g/dL (31.0-37.0); MCV 94.1 fL (80.0-100.0); Mean Platelet Volume 7.7; Monocytes # (A) 0.6 k/uL (0-1.0); Monocytes % (A) 7 %; Neutrophils # (A) 6.3 k/uL (1.3-7.7); Neutrophils % (A) 78 %; RBC 4.83 m/uL (4.30-5.90); RDW 12.7 % (11.5-15.5); WBC (Perox) 8.24
[2017-02-05 06:25] LABS: Anion Gap 10 mmol/L; Blood Urea Nitrogen 21 mg/dL (9-20); Calcium 8.7 mg/dL (8.4-10.2); Carbon Dioxide 20 mmol/L (22-30); Chloride 109 mmol/L (98-107); Glucose 100 mg/dL (74-99); Non-African American GFR(MDRD) >60 (>60 ml/min/1.73 sqM); Potassium 4.4 mmol/L (3.5-5.1); Sodium 139 mmol/L (137-145)
[2017-02-05] MEDS: AMIODARONE 200 MG TAB PO SCH ×2 (08:21→21:02)
[2017-02-05] MEDS: CARVEDILOL 3.125 MG TAB PO SCH ×2 (08:21→17:34)
[2017-02-05] MEDS: ESCITALOPRAM 10 MG TAB PO SCH (08:22)
[2017-02-05] MEDS: COLCHICINE 0.6 MG TAB PO SCH ×2 (08:22→21:03)
[2017-02-05] MEDS: LOSARTAN 25 MG TAB PO SCH (08:22)
[2017-02-05] MEDS: FAMOTIDINE 20 MG TAB PO SCH (08:22)
[2017-02-05] MEDS: ASPIRIN 81 MG CHEW PO SCH (08:22)
[2017-02-05] MEDS: APIXABAN 5 MG TAB PO SCH ×2 (08:22→21:02)
[2017-02-05] MEDS: SPIRONOLACTONE 25 MG TAB PO SCH (08:23)
[2017-02-05] MEDS ORDERED: LACTATED RINGERS 1,000 ML IV ONE (11:24)
[2017-02-05] MEDS ORDERED: LIDOCAINE HCL/PF 20 MG/ML 10 ML AMP ONE (11:28)
[2017-02-05] MEDS ORDERED: PROPOFOL 10 MG/ML 20 ML VIAL IV ONE (11:28)
[2017-02-05] MEDS: SODIUM CHLORIDE 0.9% 1,000 ML IV SCH (12:32)
[2017-02-05 13:51] VITALS: RESP 16
--- NOTE | 2017-02-05 17:10 | PN ---
Mr. Zaragoza is a gentleman with atrial tachycardia, symptomatic. He received amiodarone IV. After receiving about half the drip, he developed significant bradycardia therefore, this was discontinued and switched over to oral medications. This morning he remains in atrial tachycardia at a rate of 140 beats per minute. I will perform electrical cardioversion. Risks, benefits, options, rationale explained. Vital signs are stable. S1, S2 heard normally tachycardia noted. Lungs are clear. Abdomen and lower extremity exam unchanged. We will perform electrical cardioversion today for persistent symptomatic atrial tachycardia.
[2017-02-06] MEDS: CARVEDILOL 3.125 MG TAB PO SCH (06:33)
[2017-02-06] MEDS: COLCHICINE 0.6 MG TAB PO SCH (06:33)
[2017-02-06] MEDS: AMIODARONE 200 MG TAB PO SCH (06:33)
[2017-02-06] MEDS: APIXABAN 5 MG TAB PO SCH (06:34)
[2017-02-06] MEDS: ATORVASTATIN 10 MG TAB PO SCH (07:55)
[2017-02-06] MEDS: ASPIRIN 81 MG CHEW PO SCH (08:09)
[2017-02-06] MEDS: SPIRONOLACTONE 25 MG TAB PO SCH (08:09)
[2017-02-06] MEDS: ESCITALOPRAM 10 MG TAB PO SCH (08:09)
[2017-02-06] MEDS: FAMOTIDINE 20 MG TAB PO SCH (08:09)
--- NOTE | 2017-02-06 09:16 | CE ---
DATE OF SERVICE: 02/05/2017 PROCEDURE: Electrical cardioversion. INDICATION: Persistent atrial tachycardia with symptoms. PROCEDURE NOTE: Under the influence of ultra short-acting intravenous anesthetic agent with the attendance of the anesthesiologist, a single 100 joules shock was delivered to the chest wall in a synchronized fashion. Patient converted to sinus rhythm with sinus bradycardia and back-up atrial paced rhythm. He is hemodynamically stable and neurologically intact. This was a successful cardioversion. Results were discussed with the patient and family members and he will be going to his home and will be continued on his medications and hopefully discharge in the morning.
--- NOTE | 2017-02-06 10:18 | PN ---
DATE OF SERVICE: 02/04/2017 INTERVAL HISTORY: Mr. Zaragoza is a 56-year-old male with a past medical history of atrial fibrillation, atrial flutter, coronary artery disease, hypertension, hyperlipidemia, sleep apnea, came in to the hospital with irregular heart beat and mild difficulty in breathing. The patient was found to be in atrial flutter with two-to-one conduction. Cardiology has evaluated the patient. The patient did undergo cardioversion today and currently his rhythm is paced. REVIEW OF SYSTEMS: CONSTITUTIONAL: Denies having any fevers, chills, or rigors. RESPIRATORY: No cough or difficulty in breathing. CARDIAC: No chest pain or palpitations. GI: No abdominal pain, nausea, vomiting, or diarrhea. : No dysuria, hematuria, patient denies having any acute active complaints. Patient's medications have been reviewed. On examination, patient's vitals, temperature 96.7, heart rate 60 which is paced, respiratory rate 16, blood pressure is 87/51, saturating at 96% on room air. GENERAL EXAMINATION: Patient appears to be in no acute distress. Sitting comfortably in a chair beside his bed. HEAD: Atraumatic, nontraumatic. EYES: Pupils, round and reactive. No pallor. No icterus. NECK: No JVD, no thyromegaly. CARDIOVASCULAR: Heart rate which is regular rate 60 beats per minute. LUNGS: Bilateral breath sounds are positive. No wheeze or crackles. ABDOMEN: Soft, nontender. Bowel sounds are positive. EXTREMITIES: No edema. No cyanosis, no clubbing. Peripheral pulses are felt. MERCHANDISE SUPERVISOR: Alert, awake and oriented x3. No focal neurological deficits. MUSCULOSKELETAL: No joint swelling or deformity. PSYCHIATRIC: Appropriate mood and affect. SKIN: No rash. Patient's labs: White count of 8, hemoglobin is 15.8, platelets of 150, sodium 139, potassium 4.4, chloride 109, bicarb 20, BUN 21, creatinine 1.10. ASSESSMENT AND PLAN: 1. Atrial flutter with two-to one conduction, status post cardioversion, now paced. 2. History of atrial fibrillation and atrial flutter, status post ablation and cardioversion x3 in the past. 3. Nonischemic cardiomyopathy. 4. History of coronary artery disease. 5. Hypertension. 6. Hyperlipidemia. 7. Obstructive sleep apnea. 8. History of heart catheterization x2. 9. Status post AICD and pacer placement. PLAN: The patient has been cardioverted today and is currently paced. Will continue with the rest of his medication regimen. Will monitor him and to continue on p.o. amiodarone and apixaban. Further recommendations depending on the progress of the patient.
[2017-02-06] MEDS ORDERED: LOSARTAN 25 MG TAB PO SCH (12:00)
[2017-02-06] MEDS: SODIUM CHLORIDE 0.9% 1,000 ML IV SCH (12:24)
[2017-02-06 12:26] VITALS: BP 87/53; PULSE 59; TEMP 97
--- NOTE | 2017-02-06 13:34 | P.PN ---
Subjective Principal diagnosis: Atrial flutter This is a 56-year-old gentleman with known history of nonischemic cardiomyopathy , ejection fraction 25-30% who has an AICD. He recently underwent ablation for atrial tachycardia on January 30, and was discharged home and readmitted to the hospital with a heart rate in the 140s. He underwent a cardioversion yesterday by Dr. Louie Dominguez. Remaining in normal sinus rhythm today. Having some diarrhea stools, otherwise feeling well. He may be able to be discharged home, he will have a device check in the office after leaving here. Objective - Vital Signs Vital signs: Vital Signs Temp 97.0 F L 02/06/17 12:00 Pulse 59 L 02/06/17 12:00 Resp 16 02/06/17 12:00 BP 87/53 02/06/17 12:00 Pulse Ox 98 02/06/17 12:00 Intake & Output 02/05/17 02/06/17 02/06/17 18:59 06:59 18:59 Intake Total 340 260 500 Output Total 700 300 Balance -360 260 200 Intake: IV 100 Intake, IV Titration 260 160 Amount Sodium Chloride 0.9% 1, 260 160 000 ml @ 20 mls/hr IV . Q24H KEVEN Rx#:[id number] Oral 240 340 Output: Urine 700 300 Other: Voiding Method Toilet Toilet # Voids 4 1 # Bowel Movements 1 - Exam PHYSICAL EXAMINATION: HEENT: Head is atraumatic, normocephalic. Pupils equal, round. Neck is supple. There is no elevated jugular venous pressure. HEART EXAMINATION: Heart S1, S2 normal. No murmur or gallop heard. CHEST EXAMINATION: Lungs are clear to auscultation and precussion. No chest wall tenderness is noted on palpation or with deep breathing. ABDOMEN: Soft, nontender. Bowel sounds are heard. No organomegaly noted. EXTREMITIES: 2+ peripheral pulses with no evidence of peripheral edema and no calf tenderness noted. NEUROLOGIC patient is awake, alert and oriented -3. . - Labs CBC & Chem 7: 02/05/17 05:43 02/05/17 05:43 Assessment and Plan (1) Atrial tachycardia Status: Acute (2) Encounter for cardioversion procedure Status: Acute (3) Hx of prior ablation treatment Status: Acute (4) Dizziness Status: Acute Plan: From cardiology's perspective, patient may be able to be discharged home today. He's been instructed to stop at the office on discharge for device check. He will have a follow-up appointment with Dr. Louie Dominguez in the office post discharge. DNP note has been reviewed, I agree with a documented findings and plan of care. Patient was seen and examined.
--- NOTE | 2017-02-07 10:21 | DS ---
"DATE OF ADMISSION: 02/03/2017 DATE OF DISCHARGE: 02/06/2017 HOSPITAL COURSE: Mr. Zaragoza is a 56-year-old male with the past medical history of atrial fibrillation, atrial flutter, coronary artery disease, hypertension, hyperlipidemia, sleep apnea, came into the hospital with mild difficulty in breathing and irregular heart rate. Patient was checking his blood pressure and at that time his heart rate was found to be in 140s and so he came in to the hospital for further evaluation. Patient was found to be in atrial flutter with 2-to-1 conduction. Cardiology has been consulted and the patient did get cardioversion on 02/05/2015 and converted into a paced rhythm. He has been cleared by Cardiology Services to be discharged home today. PROCEDURES DONE: Cardioversion. CONSULTS OBTAINED: Cardiology Patient's vitals at the time of discharge are stable. Patient's discharge diagnoses: 1. Atrial flutter with 2-to-1 conduction, status post cardioversion now paced. 2. History of atrial fibrillation and atrial flutter and status post ablation and cardioversion x3 in the past. 3. Nonischemic cardiomyopathy. 4. History of coronary artery disease. 5. Hypertension. 6. Hyperlipidemia. 7. Obstructive sleep apnea. 8. Status post AICD and pacemaker placement in the past. 9. History of heart catheterization x2 in the past. DISCHARGE MEDICATIONS: 1. Cozaar 25 mg p.o. daily. 2. Spironolactone 25 mg p.o. daily. 3. Digoxin 125 mcg p.o. daily. 4. Eliquis 5 mg| p.o. b.i.d. 5. Coag 6.25 mg p.o. b.i.d. 6. Lexapro 10 mg p.o. daily. 7. Colchicine 0.6 mg p.o. b.i.d. 8. Pepcid 20 mg p.o. daily. 9. Lasix 40 mg p.o. b.i.d. 10. Crestor 5 mg p.o. q.48 hours. 11. Aspirin 81 mg p.o. daily. Patient is being discharged home in a stable condition. Activity as tolerated. DIET: Cardiac diet. FOLLOWUP: The patient is given a followup appointment with his primary care physician, Dr. Porter and he is also advised to follow with his cardiology, Dr. Kiet Dominguez within 1 week's time. Patient is being discharged home in a stable condition."
== END 2017-02-06 16:22 | disposition home or self-care (01) | DRG 310 ==
LOC: EC 22:34 → 6SEL 23:51
PROVIDERS: ADMIT Hospitalist; ATTEND Hospitalist
PROC: 5A2204Z Restoration of Cardiac Rhythm, Single (ICD-10-PCS; principal; 2017-02-05 11:00)
DX: I48.91 Unspecified atrial fibrillation (principal); I42.9 Cardiomyopathy, unspecified; I10 Essential (primary) hypertension; E78.5 Hyperlipidemia, unspecified; I48.92 Unspecified atrial flutter; G47.33 Obstructive sleep apnea (adult) (pediatric); I25.10 Atherosclerotic heart disease of native coronary artery without angina pectoris; I47.1 Supraventricular tachycardia; M10.9 Gout, unspecified; Z79.01 Long term (current) use of anticoagulants; Z79.899 Other long term (current) drug therapy; Z82.3 Family history of stroke; Z82.49 Family history of ischemic heart disease and other diseases of the circulatory system; Z87.891 Personal history of nicotine dependence; Z95.810 Presence of automatic (implantable) cardiac defibrillator
CPT/HCPCS: 36415; 71020; 80048; 80053; 80061; 80162; 82550; 82553; 83735; 83880; 84484; 85025; 85610; 85730; 92960; 93005; 94760; 96365; 96366; 99291

== ENCOUNTER → 2017-02-14 | Outpatient (CLI) | payer BC ==
[2017-02-14 15:21] LABS: Anion Gap 9 mmol/L; Blood Urea Nitrogen 18 mg/dL (9-20); Carbon Dioxide 22 mmol/L (22-30); Chloride 107 mmol/L (98-107); Glucose 94 mg/dL (74-99); Non-African American GFR(MDRD) >60 (>60 ml/min/1.73 sqM); Sodium 138 mmol/L (137-145)
== END | disposition home or self-care (01) ==
LOC: LABWHC1 14:52
PROVIDERS: ATTEND Internal Medicine Interventional Cardiology
DX: I50.9 Heart failure, unspecified (principal); I48.91 Unspecified atrial fibrillation
CPT/HCPCS: 36415; 80048

== ENCOUNTER → 2017-03-21 | Outpatient (CLI) | payer BC ==
--- NOTE | 2017-03-22 09:45 | PN ---
A 56-year-old male patient with known history of severe obstructive sleep apnea with an AHI of 45. The patient was also known to have cardiomyopathy and chronic atrial fibrillation. He has an ejection fraction of 10% to 15%. He has an AICD in place. He has undergone recent cardioversion and cardiac ablation. He is currently in normal sinus rhythm. In terms of sleep apnea, he is very compliant. His CPAP compliance for more than 4 hours is 27 out of 30. His average CPAP use 6.1 hours. His leak factor is 14 L/min. AHI while on treatment is down to 1. Patient is on CPAP pressure at 11 cm of water. Treatment is successful using a medium-size Simplex full-face mask. Weight is up by only 4 pounds. Temperature is 97.8, pulse is 80, respiration is 16, BP is 101/57, saturation is 97% on room air, weight is 181, BMP is 28.3. GENERAL APPEARANCE: Calm, comfortable. HEENT: Mallampati class III, no goiter or neck mass. LUNGS: Clear to auscultation. Heart sounds are regular rate and rhythm. Normal S1, S2, no S3, no murmurs. Abdomen is soft, nontender, no organomegaly. EXTREMITIES: No edema, no cyanosis or clubbing. [place] score is at 6. IMPRESSION: 1. Severe obstructive sleep apnea, apnea-hypopnea of 45. Currently on CPAP at pressure of 11. Successful treatment. 2. Hypersomnia, improved. 3. Congestive heart failure, compensated. 4. Paroxysmal atrial fibrillation, currently in sinus rhythm, status post ablation and cardioversion. 5. Hyperlipidemia. 6. Long-term anticoagulation. PLAN: 1. Keep the CPAP at the same level of pressure. 2. Renew the CPAP supplies, masks, filters, hose and tubing. 3. Implement good sleep hygiene measures. 4. See me back as needed in a few years' time or earlier if needed. [facility]
== END | disposition home or self-care (01) ==
LOC: SLEEP 15:56
PROVIDERS: ATTEND Internal Medicine Critical Care Medicine
DX: G47.33 Obstructive sleep apnea (adult) (pediatric) (principal); I50.9 Heart failure, unspecified; I48.0 Paroxysmal atrial fibrillation; E78.5 Hyperlipidemia, unspecified; Z79.01 Long term (current) use of anticoagulants

== ENCOUNTER 2018-11-20 16:15 | Inpatient (IN) | payer MEDICARE ==
[2018-11-20] MEDS ORDERED: AMIODARONE 360 MG in DEXTROSE 5% IN WATER 200 ML IV ONE ×2 (16:32)
[2018-11-20] MEDS ORDERED: DEXTROSE 5% IN WATER 100 ML with AMIODARONE 150 MG IV ONE (16:32)
--- NOTE | 2018-11-20 16:41 | ED ---
General Adult HPI - General Chief complaint: Arrhythmia/Palpitations Stated complaint: Atrial flutter Time Seen by Provider: 11/20/18 16:21 Source: patient, RN/MD, RN notes reviewed Mode of arrival: ambulatory Limitations: no limitations - History of Present Illness Initial comments: Patient is a pleasant 58-year-old male presenting to the emergency department with concerns for atrial flutter. Patient was at Dr. Dominguez's office prior to arrival. Patient was found to be in atrial flutter with rapid response. Patient was advised come the emergency department. Dr. Dominguez did call here. He requested amiodarone old list and drip and will come to cardiovert patient. Patient is on Eliquis - Related Data Home Medications Medication Instructions Recorded Confirmed Losartan [Cozaar] 12.5 mg PO HS 01/13/15 11/20/18 Spironolactone [Aldactone] 25 mg PO DAILY 01/23/15 11/20/18 Apixaban [Eliquis] 5 mg PO BID 01/30/17 11/20/18 Carvedilol [Coreg] 6.25 mg PO BID-W/MEALS 01/30/17 11/20/18 Escitalopram [Lexapro] 10 mg PO DAILY 01/30/17 11/20/18 Famotidine [Pepcid] 20 mg PO DAILY PRN 02/03/17 11/20/18 Furosemide [Lasix] 40 mg PO BID 02/03/17 11/20/18 Rosuvastatin Calcium [Crestor] 5 mg PO Q48H 02/03/17 11/20/18 Allopurinol [Zyloprim] 300 mg PO DAILY 11/20/18 11/20/18 Amiodarone [Cordarone] 200 mg PO DAILY 11/20/18 11/20/18 Allergies Allergy/AdvReac Type Severity Reaction Status Date / Time Iodine and Iodide Containing Allergy Swelling Verified 11/20/18 16:43 Produc Penicillins Allergy Unknown Verified 11/20/18 16:43 Childhood shellfish derived [Shellfish] Allergy Swelling Verified 11/20/18 16:43 dofetilide [From Tikosyn] AdvReac V-Tach/Kidney Verified 11/20/18 16:43 Failure Review of Systems ROS Statement: Those systems with pertinent positive or pertinent negative responses have been documented in the HPI. ROS Other: All systems not noted in ROS Statement are negative. Constitutional: Denies: fever Eyes: Denies: eye pain ENT: Denies: ear pain Respiratory: Reports: dyspnea (Patient does have exertional dyspnea which is normally the symptoms he gets with a fibrillation or atrial flutter). Denies: cough Cardiovascular: Denies: chest pain, palpitations Endocrine: Denies: fatigue Gastrointestinal: Denies: abdominal pain Genitourinary: Denies: dysuria Musculoskeletal: Denies: back pain Skin: Denies: rash Neurological: Denies: weakness Past Medical History Past Medical History: Atrial Fibrillation, Atrial Flutter, Coronary Artery Di sease (CAD), Chest Pain / Angina, Hyperlipidemia, Hypertension, Sleep Apnea/CPAP/BIPAP Additional Past Medical History / Comment(s): ,HX OF GOUT, , USES C PAP AT NIGHT, histoplasmosis LT EYE. non sustained VT, SEE DR IHNES'S H&P. VERTIGO. History of Any Multi-Drug Resistant Organisms: None Reported Past Surgical History: AICD, Cardiac Ablation, EPS, Heart Catheterization Additional Past Surgical History / Comment(s): HEART CATH X2; WISDOM TEETH REMOVED; CARDIOVERSION X3 ATTEMPTS - LAST 12/15/14 Past Anesthesia/Blood Transfusion Reactions: No Reported Reaction Additional Past Anesthesia/Blood Transfusion Reaction / Comment(s): VERTIGO Type of Cardiac Device: AICD Device Placement Date:: 01/26/2015 Past Psychological History: No Psychological Hx Reported Smoking Status: Former smoker Past Alcohol Use History: None Reported Past Drug Use History: None Reported - Past Family History Mother Family Medical History: Cancer, CVA/TIA Additional Family Medical History / Comment(s): BREAST CA Father Family Medical History: Cancer Additional Family Medical History / Comment(s): LEUKEMIA General Exam Limitations: no limitations General appearance: alert, in no apparent distress Head exam: Present: atraumatic Eye exam: Present: normal appearance, PERRL ENT exam: Present: normal oropharynx Neck exam: Present: normal inspection Respiratory exam: Present: normal lung sounds bilaterally Cardiovascular Exam: Present: tachycardia, irregular rhythm Expanded Peripheral pulses: 2+: Radial (R), Radial (L), Posterior Tibialis (R), Posterior Tibialis (L) GI/Abdominal exam: Present: soft. Absent: tenderness Extremities exam: Present: normal inspection. Absent: pedal edema, calf tenderness Neurological exam: Present: alert Psychiatric exam: Present: normal affect, normal mood Skin exam: Present: normal color Course Vital Signs 11/20/18 16:20 Temperature 97.7 F Pulse Rate 125 H Respiratory 18 Rate Blood Pressure 89/64 O2 Sat by Pulse 100 Oximetry - Reevaluation(s) Reevaluation #1: 11/20/18 17:15 Patient reevaluated. Patient and family updated. Still waiting for Dr. Dominguez t o this point we are waiting for Dr. Dominguez to arrive from the office. Previous labs reviewed. Heart rate has varied between 105 and 125. 11/20/18 18:40 Dr. Dominguez did come evaluate patient. Dr. Dominguez did cardiovert patient. I did provide sedation. Dr. Bravo has been paged for admission. EKG Findings - EKG Comments: EKG Findings:: Neuro Tachycardia with rate of 137. SC 136. QRS 118. QT 334. QTC 504. Left axis. Inferior Q waves. Septal Q waves. No acute ST change. Procedures - Procedural Sedation Procedural Sedation Start Time: 18:15 Procedural Sedation Stop Time: 18:38 Indications: other (Cardioversion) Preparation: environmental monitoring technician applied, pulse oximeter, supplemental O2 applied, suction/airway equipment at bedside Midazolam: IV Midazolam Dose: 1 IV Propofol Dose (mgs): 50 Complications: hypoventilation Interventions: assist by BVM Additional Comments: Patient did have some hypoventilation and bag valve mask assistance was provided for approximately 2 minutes. Patient then became more alert and was maintaining airway without any difficulty. Medical Decision Making - Lab Data Result diagrams: 11/20/18 16:34 11/20/18 16:34 Lab Results 11/20/18 11/20/18 11/20/18 Range/Units 16:34 16:34 16:34 WBC 9.6 (3.8-10.6) k/uL RBC 4.79 (4.30-5.90) m/uL Hgb 15.4 (13.0-17.5) gm/dL Hct 47.2 (39.0-53.0) % MCV 98.6 (80.0-100.0) fL MCH 32.3 (25.0-35.0) pg MCHC 32.7 (31.0-37.0) g/dL RDW 14.2 (11.5-15.5) % Plt Count 207 (150-450) k/uL Neutrophils % 79 % Lymphocytes % 11 % Monocytes % 7 % Eosinophils % 2 % Basophils % 0 % Neutrophils # 7.6 (1.3-7.7) k/uL Lymphocytes # 1.0 (1.0-4.8) k/uL Monocytes # 0.6 (0-1.0) k/uL Eosinophils # 0.2 (0-0.7) k/uL Basophils # 0.0 (0-0.2) k/uL PT 12.3 H (9.0-12.0) sec INR 1.2 H (<1.2) APTT 29.6 (22.0-30.0) sec Sodium 137 (137-145) mmol/L Potassium 4.4 (3.5-5.1) mmol/L Chloride 103 (98-107) mmol/L Carbon Dioxide 24 (22-30) mmol/L Anion Gap 10 mmol/L BUN 28 H (9-20) mg/dL Creatinine 1.78 H (0.66-1.25) mg/dL Est GFR (CKD-EPI)AfAm 47 (>60 ml/min/1.73 sqM) Est GFR (CKD-EPI)NonAf 41 (>60 ml/min/1.73 sqM) Glucose 105 H (74-99) mg/dL Calcium 9.2 (8.4-10.2) mg/dL Magnesium 2.0 (1.6-2.3) mg/dL Total Bilirubin 1.1 (0.2-1.3) mg/dL AST 29 (17-59) U/L ALT 22 (21-72) U/L Alkaline Phosphatase 97 (38-126) U/L Troponin I (0.000-0.034) ng/mL Total Protein 6.8 (6.3-8.2) g/dL Albumin 3.9 (3.5-5.0) g/dL TSH 3.070 (0.465-4.680) mIU/L Free T4 1.97 (0.78-2.19) ng/dL Free T3 pg/mL 3.1 (2.8-5.3) pg/ml Influenza Type A RNA (Not Detectd) Influenza Type B (PCR) (Not Detectd) 11/20/18 11/20/18 Range/Units 16:34 Unknown WBC (3.8-10.6) k/uL RBC (4.30-5.90) m/uL Hgb (13.0-17.5) gm/dL Hct (39.0-53.0) % MCV (80.0-100.0) fL MCH (25.0-35.0) pg MCHC (31.0-37.0) g/dL RDW (11.5-15.5) % Plt Count (150-450) k/uL Neutrophils % % Lymphocytes % % Monocytes % % Eosinophils % % Basophils % % Neutrophils # (1.3-7.7) k/uL Lymphocytes # (1.0-4.8) k/uL Monocytes # (0-1.0) k/uL Eosinophils # (0-0.7) k/uL Basophils # (0-0.2) k/uL PT (9.0-12.0) sec INR (<1.2) APTT (22.0-30.0) sec Sodium (137-145) mmol/L Potassium (3.5-5.1) mmol/L Chloride (98-107) mmol/L Carbon Dioxide (22-30) mmol/L Anion Gap mmol/L BUN (9-20) mg/dL Creatinine (0.66-1.25) mg/dL Est GFR (CKD-EPI)AfAm (>60 ml/min/1.73 sqM) Est GFR (CKD-EPI)NonAf (>60 ml/min/1.73 sqM) Glucose (74-99) mg/dL Calcium (8.4-10.2) mg/dL Magnesium (1.6-2.3) mg/dL Total Bilirubin (0.2-1.3) mg/dL AST (17-59) U/L ALT (21-72) U/L Alkaline Phosphatase (38-126) U/L Troponin I 0.065 H* (0.000-0.034) ng/mL Total Protein (6.3-8.2) g/dL Albumin (3.5-5.0) g/dL TSH (0.465-4.680) mIU/L Free T4 (0.78-2.19) ng/dL Free T3 pg/mL (2.8-5.3) pg/ml Influenza Type A RNA Not Detected (Not Detectd) Influenza Type B (PCR) Not Detected (Not Detectd) - Radiology Data Radiology results: image reviewed (Chest x-ray shows cardiomegaly. No acute cardiopulmonary disease.) Critical Care Time Critical Care Time: Yes Total Critical Care Time: 33 Disposition Clinical Impression: Atrial fibrillation with rapid ventricular response, Cardiomyopathy Disposition: ADMITTED IP TO THIS HOSP Is patient prescribed a controlled substance at d/c from ED?: No Referrals: Blanca Porter III, MD [Primary Care Provider] - 1-2 days Decision Time: 18:41
[2018-11-20 16:45] LABS: Basophils % (A) 0 %; Eosinophils # (A) 0.2 k/uL (0-0.7); Eosinophils % (A) 2 %; HCT 47.2 % (39.0-53.0); HGB 15.4 gm/dL (13.0-17.5); Lymphocytes % (A) 11 %; MCH 32.3 pg (25.0-35.0); MCHC 32.7 g/dL (31.0-37.0); MCV 98.6 fL (80.0-100.0); Mean Platelet Volume 8.2; Monocytes # (A) 0.6 k/uL (0-1.0); Monocytes % (A) 7 %; Neutrophils # (A) 7.6 k/uL (1.3-7.7); Neutrophils % (A) 79 %; Platelet Count 207 k/uL (150-450); RBC 4.79 m/uL (4.30-5.90); RDW 14.2 % (11.5-15.5); WBC 9.6 k/uL (3.8-10.6)
[2018-11-20 16:51] LABS: INR 1.2 (<1.2); Partial Thromboplastin Time 29.6 sec (22.0-30.0); Prothrombin Time 12.3 sec (9.0-12.0)
[2018-11-20 16:56] LABS: Albumin 3.9 g/dL (3.5-5.0); Calcium 9.2 mg/dL (8.4-10.2); Potassium 4.4 mmol/L (3.5-5.1); Total Bilirubin 1.1 mg/dL (0.2-1.3); Total Protein 6.8 g/dL (6.3-8.2)
--- NOTE | 2018-11-20 17:06 | XR ---
EXAMINATION TYPE: XR chest 1V portable DATE OF EXAM: 11/20/2018 COMPARISON: 02/03/2017 HISTORY: Tachycardia TECHNIQUE: Single frontal view of the chest is obtained. FINDINGS: Heart appears enlarged. There is no heart failure. Lungs are clear of consolidation. There is no pleural effusion. There is left axillary pacemaker with the lead tips in the right ventricle. There is calcified granuloma in the right upper lobe. IMPRESSION: Cardiomegaly. No active cardiopulmonary disease. No change.
[2018-11-20 17:14] LABS: T4, Free (Free Thyroxine) 1.97 ng/dL (0.78-2.19)
[2018-11-20] MEDS ORDERED: PROPOFOL 10 MG/ML 20 ML VIAL IV ONE (17:28)
[2018-11-20] MEDS ORDERED: MIDAZOLAM 1 MG/ML 5 ML VIAL IV STA (17:28)
[2018-11-20] MEDS ORDERED: FAMOTIDINE 20 MG TAB PO PRN (18:45)
[2018-11-20 18:58] VITALS: RESP 18
[2018-11-20] MEDS ORDERED: SODIUM CHLORIDE 0.9% 1,000 ML IV ONE (18:58)
[2018-11-20] MEDS: SODIUM CHLORIDE 0.9% 1,000 ML IV SCH (19:13)
[2018-11-20] MEDS: APIXABAN 5 MG TAB PO SCH (21:02)
[2018-11-20] MEDS: FUROSEMIDE 40 MG TAB PO SCH (21:02)
--- NOTE | 2018-11-20 22:44 | CONS ---
CONSULTATION This is a 58-year-old gentleman with a history of nonischemic cardiomyopathy, paroxysmal symptomatic atrial flutter and atrial fibrillation, who has been maintained on amiodarone in a sinus rhythm. He also has an ICD. He underwent ablation for flutter and fib in the past by Dr. Casiano. Whenever he goes into atrial fib, he is very symptomatic. He came into the office today upon my request because of a heart rate of nearly 130 beats per minute for the last 72 hours. His blood pressure was about 85-90 systolic. However, he was symptomatic with some lightheadedness. He was complaining of fatigue and lack of energy for the past 3 days. He had some flu-like feeling, although he did not have any clear-cut cough or fever. He was in atrial tachycardia at a rate of about 136 beats per minute. Possibility of atrial flutter also could be considered. I sent him promptly to the emergency room. I met him in the emergency room and he underwent electrical cardioversion with conscious sedation provided by Dr. Fermin Macias from the emergency room department. The patient converted to sinus rhythm after a single shock and had some backup paced beats. He was hemodynamically stable after a transient hypotension. Pressure was about 90 systolic. He was in a sinus rhythm. Oxygen saturation was good. He was fully awake, neurologically intact. This was a successful cardioversion. I will keep him in the hospital for about 18-24 hours and will give additional dose of amiodarone intravenously. He received a bolus and is now receiving the drip. PAST MEDICAL HISTORY: 1. Nonischemic cardiomyopathy. 2. Symptomatic atrial flutter and atrial fibrillation, for which he had a flutter and fibrillation ablation. 3. History of mild renal dysfunction. 4. Patient is known to have ejection fraction in the range of 25%. He has nonischemic cardiomyopathy. MEDICATIONS: At home include Eliquis, Coreg, losartan, and amiodarone. PHYSICAL EXAMINATION: Blood pressure was about 90 systolic. Heart rate was about 136. S1, S2 heard normally. There is JVD of 1 cm noted. S1, S2 heard normally. Short systolic murmur was noted. Tachycardia was noted. Lungs reveal diminished air entry over both bases. Abdomen was soft. Lower extremities reveal diminished pulses. Central nervous system grossly no focal deficits. IMPRESSION: 1. Symptomatic atrial flutter/fibrillation with rapid ventricular rate. 2. Known nonischemic cardiomyopathy. 3. History of previous radiofrequency ablation for atrial flutter and fibrillation. 4. History of ICD. RECOMMENDATIONS: I have advised the patient to come to the emergency room for electrical cardioversion and hospitalization. He has been on Eliquis and well anticoagulated. Electrical cardioversion was successful. We will admit him to the telemetry unit and hopefully will be discharged tomorrow if he remains stable. He will be admitted to Dr. Bravo or his associates. LADONNA / BERLIN: [id number] /
--- NOTE | 2018-11-20 22:53 | CE ---
CARDIAC ELECTROPHYSIOLOGY REPORT DATE OF SERVICE: 11/20/2018 PROCEDURE: Electrical cardioversion. INDICATION: Symptomatic atrial tachycardia/atrial flutter. PERFORMED BY: Dr. Louie Dominguez. SEDATION: Moderate conscious sedation provided by Dr. Fermin Macias, emergency room department. CLINICAL INFORMATION: Mr. Valentino Zaragoza is a 58-year-old gentleman, nonischemic cardiomyopathy, known symptomatic atrial flutter and fibrillation for which he had ablation in the past. For the last 3 days he has been having fatigue, lack of energy and was tachycardic at 130 beats per minute. I saw him in the office and sent him for electrical cardioversion. Risks, benefits, options and rationale were explained. PROCEDURE NOTE: Under intravenous ultra short-acting intravenous anesthetic with a combination of propofol of 50 mg and Versed 1 mg, conscious sedation was provided. The patient had 1 single synchronized shock with anterior and posterior patches. He converted to sinus rhythm. He had transient hypotension. Oxygen saturation was good. He maintained sinus rhythm, had some paced beats. This was a successful cardioversion. After about 10-15 minutes, his blood pressure was 92 systolic. Heart rate was about 60, his own rhythm and occasional backup paced beats. He was hemodynamically stable and neurologically intact. This was a successful electrical cardioversion. He will be observed for the next 18-24 hours. MMODL / IJN: [id number] /
[2018-11-20] MEDS: AMIODARONE 300 MG in DEXTROSE 5% IN WATER 250 ML IV SCH ×2 (23:09)
[2018-11-21] MEDS: LOSARTAN 25 MG TAB PO SCH ×2 (01:35→08:31)
[2018-11-21 04:42] LABS: Basophils % (A) 0 %; Eosinophils # (A) 0.1 k/uL (0-0.7); Eosinophils % (A) 1 %; HCT 45.8 % (39.0-53.0); HGB 14.8 gm/dL (13.0-17.5); Lymphocytes # (A) 0.9 k/uL (1.0-4.8); Lymphocytes % (A) 11 %; MCH 32.5 pg (25.0-35.0); MCHC 32.3 g/dL (31.0-37.0); MCV 100.8 fL (80.0-100.0); Macrocytosis Slight; Mean Platelet Volume 8.4; Monocytes # (A) 0.6 k/uL (0-1.0); Monocytes % (A) 7 %; Neutrophils # (A) 6.3 k/uL (1.3-7.7); Neutrophils % (A) 78 %; Platelet Count 191 k/uL (150-450); RBC 4.54 m/uL (4.30-5.90)
[2018-11-21 05:03] LABS: Calcium 8.9 mg/dL (8.4-10.2); Potassium 4.5 mmol/L (3.5-5.1)
[2018-11-21] MEDS ORDERED: CARVEDILOL 6.25 MG TAB PO SCH (07:30)
[2018-11-21] MEDS: APIXABAN 5 MG TAB PO SCH (08:31)
[2018-11-21] MEDS: FUROSEMIDE 40 MG TAB PO SCH ×2 (08:31→16:26)
[2018-11-21] MEDS ORDERED: AMIODARONE 200 MG TAB PO SCH (09:00)
[2018-11-21] MEDS ORDERED: SPIRONOLACTONE 25 MG TAB PO SCH (09:00)
[2018-11-21] MEDS ORDERED: ALLOPURINOL 300 MG TAB PO SCH (09:00)
[2018-11-21] MEDS ORDERED: ESCITALOPRAM 10 MG TAB PO SCH (09:00)
--- NOTE | 2018-11-21 11:32 | P.PN ---
Subjective Progress Note Date: 11/21/18 Principal diagnosis: Afib this is a 58-year-old gentleman with history of nonischemic cardio myopathy, paroxysmal symptomatic typical atrial flutter and paroxysmal atrial fibrillation last been maintained on amiodarone in sinus rhythm. He also has an AICD. He has had a prior ablation for A. fib flutter and A. fib by Dr. Casiano. When the patient goes into atrial fibrillation he becomes extremely symptomatic. Yesterday the patient was seen by Dr. Louie Dominguez, he was in atrial fibrillation and advised to come to the hospital to undergo elective cardioversion which was performed yesterday. This morning patient remains in a normal sinus rhythm and is feeling well overall.blood pressure 106/60 with a heart rate in the 70s, 98% on room air.White blood cell count 8.0, hemoglobin 14.8, platelet count 191.sodium 135, potassium 4.5, BUN 32 and creatinine 1.83. Objective - Vital Signs Vital signs: Vital Signs Temp 97.7 F 11/21/18 08:45 Pulse 72 11/21/18 08:45 Resp 18 11/21/18 08:45 BP 94/57 11/21/18 08:45 Pulse Ox 93 L 11/21/18 08:45 Intake & Output 11/20/18 11/21/18 11/21/18 18:59 06:59 18:59 Intake Total 180 Balance 180 Weight 82.554 kg 83.4 kg Intake: Oral 180 Other: Voiding Method Toilet Toilet # Voids 1 - Exam PHYSICAL EXAMINATION: GENERAL:58-year-old gentleman in no acute distress at the time of my examination HEENT: Head is atraumatic, normocephalic. Pupils equal, round. Sclera anicteric. Conjunctiva are clear. Mucous membranes of the mouth are moist. Neck is supple. There is no elevated jugular venous pressure.] bruit is heard. HEART EXAMINATION: [Heart S1, S2 systolic murmur. No murmur or gallop heard.] CHEST EXAMINATION:[ Lungs are clear to auscultation and precussion. No chest wall tenderness is noted on palpation or with deep breathing.] ABDOMEN: [ Soft, nontender. Bowel sounds are heard. No organomegaly noted]. EXTREMITIES:[ 2+ peripheral pulses with no evidence of peripheral edema and no calf tenderness noted]. NEUROLOGIC [patient is awake, alert and oriented ?-3.] . - Labs CBC & Chem 7: 11/21/18 04:32 11/21/18 04:32 Labs: Abnormal Lab Results - Last 24 Hours (Table) 11/20/18 11/20/18 11/20/18 Range/Units 16:34 16:34 16:34 MCV (80.0-100.0) fL Lymphocytes # (1.0-4.8) k/uL PT 12.3 H (9.0-12.0) sec INR 1.2 H (<1.2) Sodium (137-145) mmol/L Carbon Dioxide (22-30) mmol/L BUN 28 H (9-20) mg/dL Creatinine 1.78 H (0.66-1.25) mg/dL Glucose 105 H (74-99) mg/dL Troponin I 0.065 H* (0.000-0.034) ng/mL 11/20/18 11/21/18 11/21/18 Range/Units 22:37 04:32 04:32 MCV (80.0-100.0) fL Lymphocytes # (1.0-4.8) k/uL PT (9.0-12.0) sec INR (<1.2) Sodium 135 L (137-145) mmol/L Carbon Dioxide 19 L (22-30) mmol/L BUN 32 H (9-20) mg/dL Creatinine 1.83 H (0.66-1.25) mg/dL Glucose 127 H (74-99) mg/dL Troponin I 0.058 H* 0.053 H* (0.000-0.034) ng/mL 11/21/18 Range/Units 04:32 MCV 100.8 H (80.0-100.0) fL Lymphocytes # 0.9 L (1.0-4.8) k/uL PT (9.0-12.0) sec INR (<1.2) Sodium (137-145) mmol/L Carbon Dioxide (22-30) mmol/L BUN (9-20) mg/dL Creatinine (0.66-1.25) mg/dL Glucose (74-99) mg/dL Troponin I (0.000-0.034) ng/mL Assessment and Plan Plan: assessment and plan #1 symptomatic atrial flutter/fibrillation, status post elective cardioversion, remaining in normal sinus rhythm. #2 nonischemic cardiomyopathy #3 history of radiofrequency ablation for atrial flutter and atrial fibrillation #4 history of AICD Plan We will discontinue the IV amiodarone drip, continue the oral amiodarone. Patient may be able to be discharged home later today. Follow-up appointment with Dr. Louie Dominguez in the office post discharge. DNP note has been reviewed, I agree with a documented findings and plan of care. Patient was seen and examined.
[2018-11-21] MEDS: AMIODARONE 300 MG in DEXTROSE 5% IN WATER 250 ML IV SCH ×2 (12:06)
[2018-11-21 12:20] VITALS: BP 92/59; PULSE 55; TEMP 97.8
[2018-11-21] MEDS: SODIUM CHLORIDE 0.9% 1,000 ML IV SCH (14:54)
--- NOTE | 2018-11-21 15:25 | P.HPIM ---
Review of Systems This is a combined H&P and discharge summary this is a 58 yo M with pmh of atrial fibrillation/flutter, history of coronary artery disease, hyperlipidemia, hypertension, sleep apnea, gout. Is a status post AICD. Status post previous ablation for his atrial fibrillation. He was sent by his charge weigher Dr. Dominguez for symptomatic atrial fibrillation with dyspnea, no chest pain , status post cardioversion done by charge weigher team yesterday. He already feels better. Vitals currently are stable, he is afebrile, heart rate 55, respiratory rate 18, blood pressure 92/59 and he is saturating 96% on room air. Patient with no chest pain or dyspnea. No change in urine or bowel habits. No fever. Patient looks like has chronic kidney disease, his creatinine today is 1.7-1.8, I spoke with his PCP office, Dr. Bernard is not available for 2 week and stated there is Dr. Cruz who saw the patient last May 2018, I discussed the case with her and she told me in early October for his creatinine was checked was 1.4-1.5. She currently on Lasix 40 mg daily and 20 mg at bedtime, patient looks dehydrated with dry mucous membranes. I offered for the patient to give him some hydration or call nephrology team to see him, however he declined and he wants to be discharged and follow-up as an outpatient, he said he had this a problem before and probably is from medication. as an alternative I offered to refer him to a relationship counselor and make an appointment for him, and he agreed however he does not want the medical team to make appointments for him, he said he will make it for himself. Contact information was provided for him. patient also wants to discuss it with his PCP Dr. Malagon. Patient is aware with his appointment with Dr. Malagon next week on 11/28/18 and he agrees to follow-up. Also he states that his charge weigher manages his creatinine and he has appointment with him on 12/04/18. Risks benefits and alternatives are explained to the patient and he verbalized understanding and acceptance. patient was enc ouraged to increase his oral hydration and check his creatinine with his PCP and he agrees The was at bedside who works in the cardiology office.His sodium is 135, potassium normal at 4.5 and stable. Currently patient is back to his normal status, no chest pain or dyspnea, no abdominal pain. No change in urine or bowel habits. No nausea vomiting. No fever. His workup with no problems. Cartilage team. Patient for discharge Problems and management plan was discussed with the patient and he verbalized understanding and acceptance, was at bedside upon patient request. Patient was found stable and can be discharged home and guarded prognosis, however he needs follow-up as an outpatient Gen: patient is a AAOx3, no distress CVS: S1-S2, RRR, no murmur Lungs: B/L CTA, no wheezing Abdomen: soft, no distention, no tenderness, positive bowel sounds Extremity: no leg edema or induration Time spent more than 35 minutes Past Medical History Past Medical History: Atrial Fibrillation, Atrial Flutter, Coronary Artery Disease (CAD), Chest Pain / Angina, Hyperlipidemia, Hypertension, Sleep Apnea/CPAP/BIPAP Additional Past Medical History / Comment(s): ,HX OF GOUT, , USES C PAP AT NIGHT, histoplasmosis LT EYE. non sustained VT, SEE DR HINES'S H&P. VERTIGO. History of Any Multi-Drug Resistant Organisms: None Reported Past Surgical History: AICD, Cardiac Ablation, EPS, Heart Catheterization Additional Past Surgical History / Comment(s): HEART CATH X2; WISDOM TEETH REMOVED; CARDIOVERSION X3 ATTEMPTS - LAST 12/15/14 Past Anesthesia/Blood Transfusion Reactions: No Reported Reaction Additional Past Anesthesia/Blood Transfusion Reaction / Comment(s): VERTIGO Type of Cardiac Device: AICD Device Placement Date:: 01/26/2015 Past Psychological History: No Psychological Hx Reported Smoking Status: Former smoker Past Alcohol Use History: None Reported Additional Past Alcohol Use History / Comment(s): STARTED SMOKING AT AGE 18 WORKED UP TO 1 PPD, QUIT 1989 Past Drug Use History: None Reported - Past Family History Mother Family Medical History: Cancer, CVA/TIA Additional Family Medical History / Comment(s): BREAST CA Father Family Medical History: Cancer Additional Family Medical History / Comment(s): LEUKEMIA Medications and Allergies Home Medications Medication Instructions Recorded Confirmed Type Losartan [Cozaar] 12.5 mg PO HS 01/13/15 11/20/18 History Spironolactone [Aldactone] 25 mg PO DAILY 01/23/15 11/20/18 History Apixaban [Eliquis] 5 mg PO BID 01/30/17 11/20/18 History Carvedilol [Coreg] 6.25 mg PO BID-W/MEALS 01/30/17 11/20/18 History Escitalopram [Lexapro] 10 mg PO DAILY 01/30/17 11/20/18 History Famotidine [Pepcid] 20 mg PO DAILY PRN 02/03/17 11/20/18 History Furosemide [Lasix] 40 mg PO BID 02/03/17 11/20/18 History Rosuvastatin Calcium [Crestor] 5 mg PO Q48H 02/03/17 11/20/18 History Allopurinol [Zyloprim] 300 mg PO DAILY 11/20/18 11/20/18 History Amiodarone [Cordarone] 200 mg PO DAILY 11/20/18 11/20/18 History Allergies Allergy/AdvReac Type Severity Reaction Status Date / Time Iodine and Iodide Containing Allergy Swelling Verified 11/20/18 16:43 Produc Penicillins Allergy Unknown Verified 11/20/18 16:43 Childhood shellfish derived [Shellfish] Allergy Swelling Verified 11/20/18 16:43 dofetilide [From Tikosyn] AdvReac V-Tach/Kidney Verified 11/20/18 16:43 Failure Physical Exam Vitals: Vital Signs Temp Pulse Pulse Resp BP BP Pulse Ox 11/21/18 12:18 97.8 F 55 L 18 92/59 96 11/21/18 08:45 97.7 F 72 18 94/57 93 L 11/21/18 04:25 97.5 F L 71 18 106/68 98 11/21/18 00:31 97.3 F L 61 18 91/55 99 11/20/18 20:10 97.4 F L 68 18 107/55 97 11/20/18 20:00 97.4 F L 68 18 107/55 97 11/20/18 18:58 62 18 91/70 99 11/20/18 18:30 63 17 85/64 97 11/20/18 18:15 131 H 18 85/64 97 11/20/18 17:45 107 H 19 82/71 98 11/20/18 17:15 114 H 17 96/80 94 L 11/20/18 16:45 135 H 19 102/86 93 L 11/20/18 16:20 97.7 F 125 H 18 89/64 100 Intake and Output 11/20/18 11/21/18 11/21/18 22:59 06:59 14:59 Intake Total 180 Balance 180 Intake: Oral 180 Other: Voiding Method Toilet Toilet Toilet # Voids 1 1 Weight 82.554 kg 83.4 kg Results CBC & Chem 7: 11/21/18 04:32 11/21/18 04:32 Labs: Abnormal Lab Results - Last 24 Hours (Table) 11/20/18 11/20/18 11/20/18 Range/Units 16:34 16:34 16:34 MCV (80.0-100.0) fL Lymphocytes # (1.0-4.8) k/uL PT 12.3 H (9.0-12.0) sec INR 1.2 H (<1.2) Sodium (137-145) mmol/L Carbon Dioxide (22-30) mmol/L BUN 28 H (9-20) mg/dL Creatinine 1.78 H (0.66-1.25) mg/dL Glucose 105 H (74-99) mg/dL Troponin I 0.065 H* (0.000-0.034) ng/mL 11/20/18 11/21/18 11/21/18 Range/Units 22:37 04:32 04:32 MCV (80.0-100.0) fL Lymphocytes # (1.0-4.8) k/uL PT (9.0-12.0) sec INR (<1.2) Sodium 135 L (137-145) mmol/L Carbon Dioxide 19 L (22-30) mmol/L BUN 32 H (9-20) mg/dL Creatinine 1.83 H (0.66-1.25) mg/dL Glucose 127 H (74-99) mg/dL Troponin I 0.058 H* 0.053 H* (0.000-0.034) ng/mL 11/21/18 Range/Units 04:32 MCV 100.8 H (80.0-100.0) fL Lymphocytes # 0.9 L (1.0-4.8) k/uL PT (9.0-12.0) sec INR (<1.2) Sodium (137-145) mmol/L Carbon Dioxide (22-30) mmol/L BUN (9-20) mg/dL Creatinine (0.66-1.25) mg/dL Glucose (74-99) mg/dL Troponin I (0.000-0.034) ng/mL Thrombosis Risk Factor Assmnt - Choose All That Apply Each Factor Represents 1 point: Age 41-60 years Other Risk Factors: No Other congenital or acquired thrombophilia - If yes, enter type in comment: No Thrombosis Risk Factor Assessment Total Risk Factor Score: 1 Thrombosis Risk Factor Assessment Level: Low Risk
[2018-11-22] MEDS ORDERED: ATORVASTATIN 10 MG TAB PO SCH (09:00)
== END 2018-11-21 16:30 | disposition home or self-care (01) | DRG 310 ==
LOC: EC 16:15 → 3SCARD 18:41
PROVIDERS: ADMIT Internal Medicine; ATTEND Internal Medicine
PROC: 5A2204Z Restoration of Cardiac Rhythm, Single (ICD-10-PCS; principal; 2018-11-20)
DX: I48.0 Paroxysmal atrial fibrillation (principal); I48.3 Typical atrial flutter; I42.9 Cardiomyopathy, unspecified; E86.0 Dehydration; I25.10 Atherosclerotic heart disease of native coronary artery without angina pectoris; E78.5 Hyperlipidemia, unspecified; G47.30 Sleep apnea, unspecified; I10 Essential (primary) hypertension; M10.9 Gout, unspecified; N28.9 Disorder of kidney and ureter, unspecified; Z79.01 Long term (current) use of anticoagulants; Z79.899 Other long term (current) drug therapy; Z86.19 Personal history of other infectious and parasitic diseases; Z99.89 Dependence on other enabling machines and devices; Z95.810 Presence of automatic (implantable) cardiac defibrillator; Z87.891 Personal history of nicotine dependence; Z88.8 Allergy status to other drugs, medicaments and biological substances; Z91.041 Radiographic dye allergy status; Z88.0 Allergy status to penicillin; Z91.013 Allergy to seafood; Z80.3 Family history of malignant neoplasm of breast; Z80.6 Family history of leukemia; Z82.3 Family history of stroke
CPT/HCPCS: 36415; 71045; 80048; 80053; 80061; 83735; 84439; 84443; 84481; 84484; 85025; 85610; 85730; 87502; 93005; 96365; 96366; 96375; 99291

== ENCOUNTER → 2018-12-11 | Outpatient (CLI) | payer MEDICARE ==
--- NOTE | 2018-12-11 15:09 | SFUN ---
SLEEP CENTER FOLLOW UP NOTE Valentino is 57, with known history of SUZANNA, AHI of 45. He is known to have cardiomyopathy, chronic atrial fibrillation. EF around 10%-15%. He has an AICD in place. He continues to use CPAP at a pressure of 11, treatment is extremely successful. He is achieving 6.8 hours of CPAP use per night, leak is 18 L/minute. AHI is down to 1.3. He is very compliant, his cardiac rhythm was sinus. He has undergone cardioversion recently for atrial fibrillation. He is using a medium-sized Simplus full-face mask. No recent weight gain or weight loss, Savannah score of 4, very compliant, continues to benefit from treatment. PHYSICAL EXAMINATION: His current vitals, BP is 97/63, pulse of 67, respirations 16, temperature 97.1, saturation 97% on room air. Weight is 182, height is 5, 7, Savannah score was 4. BMI 28.5. GENERAL APPEARANCE: Calm, comfortable. Head is atraumatic, normocephalic. NECK: Supple. No JVD. No goiter pr neck mass. LUNGS: Diminished breath sounds, otherwise clear. HEART: Sounds are regular rate and rhythm. Positive S1, S2. ABDOMEN: Soft, nontender. No organomegaly. EXTREMITIES: No edema. No cyanosis or clubbing. NEUROLOGIC: Alert and oriented x3. No focal neurological deficits. PSYCHIATRIC: Negative for anxiety or depression. SKIN: Negative for any wounds or ulceration. IMPRESSION: 1. SUZANNA, AHI of 45 currently on CPAP, continues to be successfully treated. No emergence of any central apneas. Treatment is successful and the patient is very compliant. 2. Hypersomnia, Savannah score is down to 4. 3. Congestive heart failure with ejection fraction around 10%-15%. This is chronic systolic heart failure. Well compensated. 4. Atrial fibrillation, currently in sinus. Post cardioversion. 5. Hyperlipidemia. PLAN: 1. Continue same pressure setting. 2. Continue the same mask and interface. 3. No need for any changes. 4. See me back in 2 years' time, followup earlier if needed. MMODL / IJN: [id number] /
== END | disposition home or self-care (01) ==
LOC: SLEEP 13:26
PROVIDERS: ATTEND Internal Medicine Critical Care Medicine
DX: G47.33 Obstructive sleep apnea (adult) (pediatric) (principal); I42.9 Cardiomyopathy, unspecified; I48.2 Chronic atrial fibrillation; I50.22 Chronic systolic (congestive) heart failure; E78.5 Hyperlipidemia, unspecified; Z98.890 Other specified postprocedural states; Z99.89 Dependence on other enabling machines and devices; Z95.810 Presence of automatic (implantable) cardiac defibrillator

== ENCOUNTER → 2019-04-16 | Outpatient (CLI) | payer MEDICARE | END | disposition home or self-care (01) | LOC: LABWHC1 11:12 | PROVIDERS: ATTEND Family Medicine | DX: M10.9 Gout, unspecified (principal) | CPT/HCPCS: 36415; 84550 ==

== ENCOUNTER → 2019-06-04 | Outpatient (CLI) | payer MEDICARE ==
[2019-06-04 19:39] LABS: African American GFR (CKD) 49.7 (60.0-200.0); Anion Gap 11.3 mmol/L (4.00-12.00); BUN/Creat Ratio 21.18 Ratio (12.00-20.00); Calcium 9.2 mg/dL (8.7-10.3); Carbon Dioxide 25.7 mmol/L (21.6-31.8); Potassium 4.8 mmol/L (3.5-5.5)
== END | disposition home or self-care (01) ==
LOC: LABWHC1 13:48
DX: I50.22 Chronic systolic (congestive) heart failure (principal); I42.0 Dilated cardiomyopathy
CPT/HCPCS: 36415; 80048; 83880

== ENCOUNTER → 2019-06-05 | Outpatient (CLI) | payer MEDICARE ==
[2019-06-05 10:29] LABS: Basophils # (A) 0.1 k/uL (0-0.2); Basophils % (A) 1 %; Eosinophils # (A) 0.2 k/uL (0-0.7); Eosinophils % (A) 3 %; HGB 16.1 gm/dL (13.0-17.5); Lymphocytes # (A) 0.8 k/uL (1.0-4.8); Lymphocytes % (A) 13 %; MCH 32.9 pg (25.0-35.0); MCHC 32.1 g/dL (31.0-37.0); MCV 102.5 fL (80.0-100.0); Macrocytosis Slight; Monocytes # (A) 0.5 k/uL (0-1.0); Monocytes % (A) 9 %; Neutrophils # (A) 4.4 k/uL (1.3-7.7); Neutrophils % (A) 71 %; Platelet Count 194 k/uL (150-450); RBC 4.88 m/uL (4.30-5.90); RDW 12.7 % (11.5-15.5); WBC 6.2 k/uL (3.8-10.6)
[2019-06-05 16:49] LABS: Chol/HDL Ratio 2.72; LDL Cholesterol,Calculated 89.4 mg/dL (0.0-131.0); VLDL Calculation 25.6 mg/dL (5.00-40.00)
== END ==
LOC: LABWHC1 09:11
PROVIDERS: ATTEND Family Medicine
DX: Z12.5 Encounter for screening for malignant neoplasm of prostate (principal); Z00.00 Encounter for general adult medical examination without abnormal findings; M10.9 Gout, unspecified; I48.91 Unspecified atrial fibrillation; N17.8 Other acute kidney failure; N18.3 Chronic kidney disease, stage 3 (moderate); Z13.220 Encounter for screening for lipoid disorders; E78.5 Hyperlipidemia, unspecified
CPT/HCPCS: 36415; 80061; 84153; 85025; 86038

== ENCOUNTER → 2019-06-12 | Outpatient (CLI) | payer MEDICARE | END | disposition home or self-care (01) | LOC: CPPFTMAIN 10:41 | PROVIDERS: ATTEND Internal Medicine | DX: I25.10 Atherosclerotic heart disease of native coronary artery without angina pectoris (principal); I50.22 Chronic systolic (congestive) heart failure; I48.92 Unspecified atrial flutter; Z98.890 Other specified postprocedural states | CPT/HCPCS: 94060; 94726; 94729 ==

== ENCOUNTER → 2019-07-22 | Outpatient (CLI) | payer MEDICARE ==
[2019-07-22 15:50] LABS: African American GFR (CKD) 53.5 (60.0-200.0); Anion Gap 5.8 mmol/L (4.00-12.00); BUN/Creat Ratio 17.5 Ratio (12.00-20.00); Calcium 9.1 mg/dL (8.7-10.3); Carbon Dioxide 26.2 mmol/L (21.6-31.8); Non-African American GFR(CKD) 46.1 (60.0-200.0); Potassium 4.5 mmol/L (3.5-5.5); Uric Acid 11.4 mg/dL (3.7-8.7)
== END | disposition home or self-care (01) ==
LOC: LABWHC1 10:25
PROVIDERS: ATTEND Internal Medicine
DX: M10.9 Gout, unspecified (principal); I50.22 Chronic systolic (congestive) heart failure; I42.0 Dilated cardiomyopathy; Z88.0 Allergy status to penicillin; Z91.013 Allergy to seafood
CPT/HCPCS: 36415; 80048; 83880; 84550

== ENCOUNTER → 2019-09-16 | Outpatient (CLI) | payer MEDICARE ==
[2019-09-16 12:48] LABS: HCT 50.5 % (39.0-53.0); HGB 16.9 gm/dL (13.0-17.5); MCH 33.5 pg (25.0-35.0); MCHC 33.6 g/dL (31.0-37.0); MCV 99.8 fL (80.0-100.0); Mean Platelet Volume 9.2; Platelet Count 187 k/uL (150-450); RBC 5.06 m/uL (4.30-5.90); RDW 12.4 % (11.5-15.5); WBC 5.5 k/uL (3.8-10.6)
[2019-09-16 12:51] LABS: INR 1.1 (<1.2); Prothrombin Time 11.7 sec (9.0-12.0)
[2019-09-16 12:56] LABS: African American GFR (CKD) 42 (>60 ml/min/1.73 sqM); Anion Gap 11 mmol/L; Blood Urea Nitrogen 37 mg/dL (9-20); Calcium 9.4 mg/dL (8.4-10.2); Carbon Dioxide 20 mmol/L (22-30); Chloride 108 mmol/L (98-107); Glucose 95 mg/dL (74-99); Non-African American GFR(CKD) 36 (>60 ml/min/1.73 sqM); Potassium 4.6 mmol/L (3.5-5.1); Sodium 139 mmol/L (137-145)
== END | disposition home or self-care (01) ==
LOC: LABWHC1 11:44
PROVIDERS: ATTEND Internal Medicine
DX: Z01.812 Encounter for preprocedural laboratory examination (principal); I25.10 Atherosclerotic heart disease of native coronary artery without angina pectoris
CPT/HCPCS: 36415; 80048; 85027; 85610

== ENCOUNTER → 2019-09-27 | Outpatient (CLI) | payer MEDICARE ==
[2019-09-27 11:58] LABS: African American GFR (CKD) 31 (>60 ml/min/1.73 sqM); Albumin 4.1 g/dL (3.5-5.0); Albumin/Globulin Ratio 1.4; Anion Gap 7 mmol/L; Bilirubin,Unconjugated 0.5 mg/dL (0.0-1.1); Blood Urea Nitrogen 70 mg/dL (9-20); Carbon Dioxide 32 mmol/L (22-30); Chloride 101 mmol/L (98-107); Glucose 85 mg/dL (74-99); Non-African American GFR(CKD) 27 (>60 ml/min/1.73 sqM); Potassium 4.1 mmol/L (3.5-5.1); Sodium 140 mmol/L (137-145); Total Protein 7.1 g/dL (6.3-8.2)
[2019-09-27 11:59] LABS: ALT 28 U/L (4-49); AST 36 U/L (17-59); Alkaline Phosphatase 82 U/L (38-126); Calcium 9.4 mg/dL (8.4-10.2); Total Bilirubin 0.8 mg/dL (0.2-1.3)
== END | disposition home or self-care (01) ==
LOC: LABWHC1 10:52
PROVIDERS: ATTEND Internal Medicine
DX: I42.8 Other cardiomyopathies (principal); I50.9 Heart failure, unspecified; I42.0 Dilated cardiomyopathy
CPT/HCPCS: 36415; 80053; 82248

== ENCOUNTER → 2019-09-30 | Outpatient (CLI) | payer MEDICARE ==
[2019-10-01 00:20] LABS: African American GFR (CKD) 36.1 (60.0-200.0); Albumin 4.3 g/dL (3.80-4.90); Albumin/Globulin Ratio 2.05 (1.60-3.17); Anion Gap 12.4 mmol/L (4.00-12.00); BUN/Creat Ratio 27.73 Ratio (12.00-20.00); Calcium 9.5 mg/dL (8.7-10.3); Carbon Dioxide 28.6 mmol/L (21.6-31.8); Globulin 2.1 g/dL (1.6-3.3); Non-African American GFR(CKD) 31.2 (60.0-200.0); Potassium 4.3 mmol/L (3.5-5.5); Total Bilirubin 0.9 mg/dL (0.2-1.2); Total Protein 6.4 g/dL (6.2-8.2)
== END | disposition home or self-care (01) ==
LOC: LABWHC1 14:50
PROVIDERS: ATTEND Physician Assistant
DX: I42.8 Other cardiomyopathies (principal); I50.9 Heart failure, unspecified; I51.9 Heart disease, unspecified
CPT/HCPCS: 36415; 80053; 83880

== ENCOUNTER → 2020-06-01 | Outpatient (CLI) | payer MEDICARE ==
[2020-06-01 21:01] LABS: African American GFR (CKD) 62.4 (60.0-200.0); Anion Gap 8.2 mmol/L (4.00-12.00); BUN/Creat Ratio 18.57 Ratio (12.00-20.00); Carbon Dioxide 22.8 mmol/L (21.6-31.8); Non-African American GFR(CKD) 53.8 (60.0-200.0); Potassium 5.2 mmol/L (3.5-5.5)
== END | disposition home or self-care (01) ==
LOC: LABWHC1 12:47
PROVIDERS: ATTEND Family Medicine
DX: I51.9 Heart disease, unspecified (principal); N17.8 Other acute kidney failure; N18.30 Chronic kidney disease, stage 3 unspecified
CPT/HCPCS: 36415; 80048; 83880

== ENCOUNTER 2021-01-25 16:00 | Emergency (ER) | payer MEDICARE, OTHER ==
[2021-01-25 16:08] VITALS: BP 110/73; PULSE 60; RESP 18; TEMP 97.9
--- NOTE | 2021-01-25 16:59 | ED ---
General Adult HPI - General Chief complaint: Skin/Abscess/Foreign Body Stated complaint: Poss sun poisoning Time Seen by Provider: 01/25/21 16:18 Source: patient, family, RN notes reviewed Mode of arrival: ambulatory Limitations: no limitations - History of Present Illness Initial comments: Patient is a pleasant 60-year-old male presenting to the emergency department with concern for redness and swelling of his hands and face. Onset of symptoms was somewhat yesterday, more today. Patient was in the sun yesterday doing yardwork. Patient is on medications that make his skin sensitive to sunlight. Patient did have some swelling to his face diffusely as well as his hands. This has arty improved. Patient did take Benadryl earlier. Patient is having mild irritation/discomfort. They did talk to Dr. Dominguez who sent him in secondary to concern with the swelling. states she did also use aloe. - Related Data Home Medications Medication Instructions Recorded Confirmed Losartan [Cozaar] 12.5 mg PO HS 01/13/15 11/20/18 Spironolactone [Aldactone] 25 mg PO DAILY 01/23/15 11/20/18 Apixaban [Eliquis] 5 mg PO BID 01/30/17 11/20/18 Escitalopram [Lexapro] 10 mg PO DAILY 01/30/17 11/20/18 carvediloL [Coreg] 6.25 mg PO BID-W/MEALS 01/30/17 11/20/18 Famotidine [Pepcid] 20 mg PO DAILY PRN 02/03/17 11/20/18 Furosemide [Lasix] 40 mg PO BID 02/03/17 11/20/18 Rosuvastatin Calcium [Crestor] 5 mg PO Q48H 02/03/17 11/20/18 Allopurinol [Zyloprim] 300 mg PO DAILY 11/20/18 11/20/18 Amiodarone [Cordarone] 200 mg PO DAILY 11/20/18 11/20/18 Previous Rx's Medication Instructions Recorded Dexamethasone [Decadron] 4 mg PO BID #6 tablet 01/25/21 Allergies Allergy/AdvReac Type Severity Reaction Status Date / Time Iodine and Iodide Containing Allergy Swelling Verified 01/25/21 16:07 Produc Penicillins Allergy Unknown Verified 01/25/21 16:07 Childhood shellfish derived [Shellfish] Allergy Swelling Verified 01/25/21 16:07 dofetilide [From Tikosyn] AdvReac V-Tach/Kidney Verified 01/25/21 16:07 Failure Review of Systems ROS Statement: Those systems with pertinent positive or pertinent negative responses have been documented in the HPI. ROS Other: All systems not noted in ROS Statement are negative. Constitutional: Denies: fever Eyes: Denies: eye pain, eye discharge, vision change ENT: Denies: ear pain Respiratory: Denies: dyspnea Cardiovascular: Denies: chest pain Endocrine: Denies: fatigue Gastrointestinal: Denies: abdominal pain Genitourinary: Denies: dysuria Musculoskeletal: Denies: back pain Skin: Reports: as per HPI, rash Neurological: Denies: weakness Past Medical History Past Medical History: Atrial Fibrillation, Atrial Flutter, Coronary Artery Disease (CAD), Chest Pain / Angina, Hyperlipidemia, Hypertension, Sleep Apnea/CPAP/BIPAP Additional Past Medical History / Comment(s): ,HX OF GOUT, , USES C PAP AT NIGHT, histoplasmosis LT EYE. non sustained VT, SEE DR HINES'S H&P. VERTIGO. History of Any Multi-Drug Resistant Organisms: None Reported Past Surgical History: AICD, Cardiac Ablation, EPS, Heart Catheterization Additional Past Surgical History / Comment(s): HEART CATH X2; WISDOM TEETH REMOVED; CARDIOVERSION X3 ATTEMPTS - LAST 12/15/14 Past Anesthesia/Blood Transfusion Reactions: No Reported Reaction Additional Past Anesthesia/Blood Transfusion Reaction / Comment(s): VERTIGO Type of Cardiac Device: AICD Device Placement Date:: 01/26/2015 Past Psychological History: No Psychological Hx Reported Smoking Status: Never smoker Past Alcohol Use History: None Reported Past Drug Use History: None Reported - Past Family History Mother Family Medical History: Cancer, CVA/TIA Additional Family Medical History / Comment(s): BREAST CA Father Family Medical History: Cancer Additional Family Medical History / Comment(s): LEUKEMIA General Exam Limitations: no limitations General appearance: alert, in no apparent distress Head exam: Present: normocephalic Eye exam: Present: normal appearance, PERRL, EOMI, other (Mild bilateral lid swelling.). Absent: nystagmus ENT exam: Present: normal oropharynx Neck exam: Present: normal inspection Respiratory exam: Present: normal lung sounds bilaterally Cardiovascular Exam: Present: regular rate, normal rhythm GI/Abdominal exam: Present: soft. Absent: tenderness Extremities exam: Present: other (Bilateral dorsal hands with erythema and sw elling, mild to moderate) Neurological exam: Present: alert Psychiatric exam: Present: normal affect, normal mood Skin exam: Present: erythema (Patient does have erythema of the entire face including the ears. Patient also has erythema of the bilateral dorsal hands.) Course Vital Signs 01/25/21 16:02 Temperature 97.9 F Pulse Rate 60 Respiratory 18 Rate Blood Pressure 110/73 O2 Sat by Pulse 99 Oximetry Medical Decision Making - Medical Decision Making Case was discussed with Dr. Dominguez who had concern for possible angioedema. This is not fit with patient's clinical presentation for evaluation. He does agree with a short dose of steroids and discharge. Patient does not have clinical presentation consistent with angioedema reaction to medication. Patient does have some edema associated with sunburn. Patient and family updated. Disposition Clinical Impression: First degree burn Disposition: HOME SELF-CARE Condition: Stable Instructions (If sedation given, give patient instructions): Sunburn (ED), Superficial Burn (ED) Additional Instructions: Continue Benadryl as needed. Continue aloe at least twice daily. Prescription for steroid sent to pharmacy. Return for increase swelling, pain, redness, fever, worsening or changing symptoms or any other concerns. Please follow-up with your cotton candy maker and primary care physician in the next couple days for recheck. Prescriptions: Dexamethasone [Decadron] 4 mg PO BID #6 tablet Is patient prescribed a controlled substance at d/c from ED?: No Referrals: Blanca Porter III, MD [Primary Care Provider] - 1-2 days Ruchi Dominguez MD [STAFF PHYSICIAN] - 1-2 days Time of Disposition: 16:59
[2021-01-25] MEDS ORDERED: dexAMETHasone 2 MG TAB PO STA (17:03)
== END 2021-01-25 17:35 | disposition home or self-care (01) ==
LOC: EC 16:00
DX: L55.0 Sunburn of first degree (principal); E78.5 Hyperlipidemia, unspecified; I10 Essential (primary) hypertension; I25.10 Atherosclerotic heart disease of native coronary artery without angina pectoris; I48.91 Unspecified atrial fibrillation; G47.33 Obstructive sleep apnea (adult) (pediatric); Z99.81 Dependence on supplemental oxygen; Z95.5 Presence of coronary angioplasty implant and graft; Z79.01 Long term (current) use of anticoagulants
CPT/HCPCS: 99283; J8540

== ENCOUNTER → 2021-07-01 | Outpatient (CLI) | payer MEDICARE, OTHER ==
[2021-07-02 01:02] LABS: African American GFR (CKD) 32.3 (60.0-200.0); Albumin 3.6 g/dL (3.8-4.9); Albumin/Globulin Ratio 1.64 (1.60-3.17); Anion Gap 14.8 mmol/L (4.00-12.00); BUN/Creat Ratio 20.54 Ratio (12.00-20.00); Blood Urea Nitrogen 49.3 mg/dL (9.0-27.0); Carbon Dioxide 22.2 mmol/L (21.6-31.8); Globulin 2.2 g/dL (1.6-3.3); Non-African American GFR(CKD) 27.9 (60.0-200.0); Potassium 4.6 mmol/L (3.5-5.5); Total Protein 5.8 g/dL (6.2-8.2)
== END | disposition home or self-care (01) ==
LOC: LABWHC1 15:19
PROVIDERS: ATTEND Internal Medicine
DX: I50.40 Unspecified combined systolic (congestive) and diastolic (congestive) heart failure (principal)
CPT/HCPCS: 36415; 80053; 83880

== ENCOUNTER → 2021-10-06 | Outpatient (CLI) | payer MEDICARE, OTHER ==
[2021-10-06 23:31] LABS: African American GFR (CKD) 21.3 (60.0-200.0); Albumin 3.7 g/dL (3.8-4.9); Albumin/Globulin Ratio 1.54 (1.60-3.17); Anion Gap 14.7 mmol/L (10.00-18.00); BUN/Creat Ratio 26.47 Ratio (12.00-20.00); Blood Urea Nitrogen 89.2 mg/dL (9.0-27.0); Calcium 9.5 mg/dL (8.7-10.3); Carbon Dioxide 26.4 mmol/L (20.0-27.5); Globulin 2.4 g/dL (1.6-3.3); Non-African American GFR(CKD) 18.4 (60.0-200.0); Potassium 4.6 mmol/L (3.5-5.5); T4, Free (Free Thyroxine) 2.36 ng/dL (0.800-1.800); Total Bilirubin 1.1 mg/dL (0.30-1.20)
== END | disposition home or self-care (01) ==
LOC: LABWHC1 15:42
PROVIDERS: ATTEND Internal Medicine Interventional Cardiology
DX: I42.0 Dilated cardiomyopathy (principal); I25.10 Atherosclerotic heart disease of native coronary artery without angina pectoris; I50.22 Chronic systolic (congestive) heart failure; I10 Essential (primary) hypertension
CPT/HCPCS: 36415; 80053; 83880; 84439; 84443

== ENCOUNTER → 2021-10-13 | Outpatient (CLI) | payer MEDICARE, OTHER ==
[2021-10-13 16:38] LABS: African American GFR (CKD) 27 (>60 ml/min/1.73 sqM); Anion Gap 7 mmol/L; Blood Urea Nitrogen 88 mg/dL (9-20); Carbon Dioxide 27 mmol/L (22-30); Chloride 98 mmol/L (98-107); Glucose 99 mg/dL (74-99); Non-African American GFR(CKD) 23 (>60 ml/min/1.73 sqM); Potassium 5.3 mmol/L (3.5-5.1); Sodium 132 mmol/L (137-145)
== END | disposition home or self-care (01) ==
LOC: LABWHC1 15:52
PROVIDERS: ATTEND Physician Assistant
DX: I11.0 Hypertensive heart disease with heart failure (principal); I42.0 Dilated cardiomyopathy; I25.10 Atherosclerotic heart disease of native coronary artery without angina pectoris; I50.22 Chronic systolic (congestive) heart failure
CPT/HCPCS: 36415; 80048; 83880

== ENCOUNTER → 2022-03-01 | Outpatient (CLI) | payer MEDICARE, OTHER ==
[2022-03-01 14:28] LABS: HCT 30.8 % (39.6-50.0); HGB 9.2 g/dL (13.0-17.0); MCH 32.9 pg (27.0-32.0); MCHC 29.9 g/dL (32.0-37.0); Mean Platelet Volume 9.2 fL (9.5-12.2); NRBC Per 100 WBC 0 /100 WBCS (0.0-0.0); Platelet Count 246 X 10*3/uL (140-440); RDW 15.8 % (11.5-14.5); WBC 4.02 X 10*3/uL (4.50-10.00)
[2022-03-01 14:55] LABS: African American GFR (CKD) 82.4 (60.0-200.0); Anion Gap 10.6 mmol/L (10.00-18.00); BUN/Creat Ratio 13.36 Ratio (12.00-20.00); Blood Urea Nitrogen 14.7 mg/dL (9.0-27.0); Calcium 9.5 mg/dL (8.7-10.3); Magnesium 1.6 mg/dL (1.5-2.4); Non-African American GFR(CKD) 71.1 (60.0-200.0); Potassium 4.9 mmol/L (3.5-5.5)
[2022-03-01 15:14] LABS: Basophils # (A) 0.02 X 10*3/uL (0.00-0.10); Basophils % (A) 0.5 %; Eosinophils # (A) 0.01 X 10*3/uL (0.04-0.35); Eosinophils % (A) 0.2 %; Immature Grans, Automated 3.2 %; Lymphocytes # (A) 0.21 X 10*3/uL (0.90-5.00); Lymphocytes % (A) 5.2 %; Macrocytosis (M) 3+; Monocytes # (A) 0.09 X 10*3/uL (0.20-1.00); Monocytes % (A) 2.2 %; Neutrophils # (A) 3.56 X 10*3/uL (1.80-7.70); Neutrophils % (A) 88.7 %
== END | disposition home or self-care (01) ==
LOC: LABWHC1 09:12
PROVIDERS: ATTEND Internal Medicine
DX: I50.30 Unspecified diastolic (congestive) heart failure (principal); E78.2 Mixed hyperlipidemia; T86.23 Heart transplant infection; T86.22 Heart transplant failure; T86.21 Heart transplant rejection; T86.290 Cardiac allograft vasculopathy; Y82.9 Unspecified medical devices associated with adverse incidents
CPT/HCPCS: 36415; 80048; 83735; 85025

== ENCOUNTER → 2022-03-08 | Outpatient (CLI) | payer MEDICARE, OTHER ==
[2022-03-08 15:17] LABS: HCT 29.4 % (39.6-50.0); HGB 8.8 g/dL (13.0-17.0); MCH 32.1 pg (27.0-32.0); MCHC 29.9 g/dL (32.0-37.0); MCV 107.3 fL (80.0-97.0); Mean Platelet Volume 9.6 fL (9.5-12.2); NRBC Per 100 WBC 0 /100 WBCS (0.0-0.0); Platelet Count 208 X 10*3/uL (140-440); RBC 2.74 X 10*6/uL (4.40-5.60); RDW 15.9 % (11.5-14.5); WBC 4.37 X 10*3/uL (4.50-10.00)
[2022-03-08 15:33] LABS: African American GFR (CKD) 82.4 (60.0-200.0); BUN/Creat Ratio 18.82 Ratio (12.00-20.00); Blood Urea Nitrogen 20.7 mg/dL (9.0-27.0); Non-African American GFR(CKD) 71.1 (60.0-200.0); Potassium 4.2 mmol/L (3.5-5.5)
[2022-03-08 15:48] LABS: Basophils # (M) 0 X 10*3/uL (0.00-0.10); Eosinophils # (M) 0 X 10*3/uL (0.04-0.35); Lymphocytes # (M) 0.13 X 10*3/uL (0.90-5.00); Monocytes # (M) 0.04 X 10*3/uL (0.20-1.00); Neutrophils % (M) 96 %; RBC Morphology NORMAL
== END | disposition home or self-care (01) ==
LOC: LABWHC1 08:42
PROVIDERS: ATTEND Internal Medicine
DX: E78.2 Mixed hyperlipidemia (principal); T86.20 Unspecified complication of heart transplant; T86.21 Heart transplant rejection; T86.22 Heart transplant failure; T86.23 Heart transplant infection; T86.290 Cardiac allograft vasculopathy; I50.30 Unspecified diastolic (congestive) heart failure; Y82.9 Unspecified medical devices associated with adverse incidents
CPT/HCPCS: 36415; 80048; 85025

== ENCOUNTER → 2022-03-15 | Outpatient (CLI) | payer MEDICARE, OTHER ==
[2022-03-15 17:53] LABS: HCT 29.5 % (39.6-50.0); HGB 8.6 g/dL (13.0-17.0); MCH 31.5 pg (27.0-32.0); MCHC 29.2 g/dL (32.0-37.0); MCV 108.1 fL (80.0-97.0); Mean Platelet Volume 9.2 fL (9.5-12.2); NRBC Per 100 WBC 0 /100 WBCS (0.0-0.0); Platelet Count 162 X 10*3/uL (140-440); RBC 2.73 X 10*6/uL (4.40-5.60); RDW 15.5 % (11.5-14.5)
[2022-03-15 19:23] LABS: Basophils # (M) 0.03 X 10*3/uL (0.00-0.10); Eosinophils # (M) 0.03 X 10*3/uL (0.04-0.35); Lymphocytes # (M) 0.11 X 10*3/uL (0.90-5.00); Macrocytosis (M) 2+; Metamyelocytes % 2 % (0-0); Monocytes # (M) 0.11 X 10*3/uL (0.20-1.00); Myelocytes % 2 % (0-0); Neutrophils # (M) 2.32 X 10*3/uL (2.00-8.90); Neutrophils % (M) 86 %
== END | disposition home or self-care (01) ==
LOC: LABWHC1 13:12
PROVIDERS: ATTEND Internal Medicine
DX: E78.2 Mixed hyperlipidemia (principal); I50.30 Unspecified diastolic (congestive) heart failure; T86.22 Heart transplant failure; T86.290 Cardiac allograft vasculopathy; Y82.9 Unspecified medical devices associated with adverse incidents
CPT/HCPCS: 36415; 85025

== ENCOUNTER → 2022-03-18 | Outpatient (CLI) | payer MEDICARE, OTHER | END | disposition home or self-care (01) | LOC: LABWHC1 09:43 | PROVIDERS: ATTEND Internal Medicine | DX: T86.20 Unspecified complication of heart transplant (principal); T86.21 Heart transplant rejection; T86.23 Heart transplant infection; E78.2 Mixed hyperlipidemia; T86.290 Cardiac allograft vasculopathy; I50.30 Unspecified diastolic (congestive) heart failure; Y82.9 Unspecified medical devices associated with adverse incidents | CPT/HCPCS: 36415; 83735 ==

== ENCOUNTER → 2022-03-25 | Outpatient (CLI) | payer MEDICARE, OTHER ==
[2022-03-25 14:15] LABS: HGB 9.5 g/dL (13.0-17.0); MCH 31.3 pg (27.0-32.0); MCHC 29.7 g/dL (32.0-37.0); MCV 105.3 fL (80.0-97.0); Mean Platelet Volume 9.5 fL (9.5-12.2); NRBC Per 100 WBC 0 /100 WBCS (0.0-0.0); Platelet Count 217 X 10*3/uL (140-440); RBC 3.04 X 10*6/uL (4.40-5.60); RDW 14.7 % (11.5-14.5); WBC 1.95 X 10*3/uL (4.50-10.00)
[2022-03-25 14:43] LABS: BUN/Creat Ratio 19.58 Ratio (12.00-20.00)
[2022-03-25 14:44] LABS: African American GFR (CKD) 74.9 (60.0-200.0); Anion Gap 12.3 mmol/L (10.00-18.00); Blood Urea Nitrogen 23.3 mg/dL (9.0-27.0); Calcium 9.6 mg/dL (8.7-10.3); Carbon Dioxide 25.1 mmol/L (20.0-27.5); Non-African American GFR(CKD) 64.6 (60.0-200.0); Potassium 4.2 mmol/L (3.5-5.5)
[2022-03-25 14:47] LABS: Basophils # (M) 0.04 X 10*3/uL (0.00-0.10); Eosinophils # (M) 0.04 X 10*3/uL (0.04-0.35); Metamyelocytes % 4 % (0-0); Monocytes # (M) 0.04 X 10*3/uL (0.20-1.00); Myelocytes % 1 % (0-0); Neutrophils # (M) 1.54 X 10*3/uL (2.00-8.90); Neutrophils % (M) 79 %; Rouleaux PRESENT
== END ==
LOC: LABWHC1 09:37
PROVIDERS: ATTEND Internal Medicine
DX: Z94.1 Heart transplant status (principal); T86.20 Unspecified complication of heart transplant; T86.21 Heart transplant rejection; T86.22 Heart transplant failure; T86.23 Heart transplant infection; T86.290 Cardiac allograft vasculopathy; E78.2 Mixed hyperlipidemia; I50.30 Unspecified diastolic (congestive) heart failure; Z87.891 Personal history of nicotine dependence; Z91.041 Radiographic dye allergy status; Z88.0 Allergy status to penicillin; Z91.013 Allergy to seafood
CPT/HCPCS: 36415; 80048; 85025

== ENCOUNTER → 2022-05-03 | Outpatient (CLI) | payer MEDICARE, OTHER ==
[2022-05-03 15:33] LABS: Anion Gap 11.2 mmol/L (10.00-18.00); BUN/Creat Ratio 19.79 Ratio (12.00-20.00); Blood Urea Nitrogen 27.9 mg/dL (9.0-27.0); Carbon Dioxide 27.3 mmol/L (20.0-27.5); Non-African American GFR(CKD) 52.6 (60.0-200.0); Potassium 4.6 mmol/L (3.5-5.5)
== END | disposition home or self-care (01) ==
LOC: LABWHC1 09:20
PROVIDERS: ATTEND Internal Medicine
DX: I50.30 Unspecified diastolic (congestive) heart failure (principal); E78.2 Mixed hyperlipidemia; T86.21 Heart transplant rejection; T86.22 Heart transplant failure; T86.23 Heart transplant infection; T86.290 Cardiac allograft vasculopathy
CPT/HCPCS: 36415; 80048

== ENCOUNTER → 2022-05-23 | Outpatient (CLI) | payer MEDICARE, OTHER ==
[2022-05-23 15:00] LABS: African American GFR (CKD) 62.1 (60.0-200.0); Anion Gap 9.8 mmol/L (10.00-18.00); BUN/Creat Ratio 17.91 Ratio (12.00-20.00); Blood Urea Nitrogen 24.9 mg/dL (9.0-27.0); Calcium 9.6 mg/dL (8.7-10.3); Carbon Dioxide 24.2 mmol/L (20.0-27.5); Non-African American GFR(CKD) 53.6 (60.0-200.0); Potassium 4.4 mmol/L (3.5-5.5)
[2022-05-23 15:40] LABS: HCT 36.5 % (39.6-50.0); HGB 11.8 g/dL (13.0-17.0); MCH 33.2 pg (27.0-32.0); MCHC 32.3 g/dL (32.0-37.0); MCV 102.8 fL (80.0-97.0); Mean Platelet Volume 10.4 fL (9.5-12.2); NRBC Per 100 WBC 0 /100 WBCS (0.0-0.0); Platelet Count 145 X 10*3/uL (140-440); RBC 3.55 X 10*6/uL (4.40-5.60); RDW 15.6 % (11.5-14.5); WBC 2.61 X 10*3/uL (4.50-10.00)
[2022-05-23 18:20] LABS: Eosinophils # (M) 0.16 X 10*3/uL (0.04-0.35); Monocytes # (M) 0.23 X 10*3/uL (0.20-1.00); Neutrophils # (M) 1.62 X 10*3/uL (2.00-8.90); Neutrophils % (M) 62 %; RBC Morphology NORMAL
== END | disposition home or self-care (01) ==
LOC: LABWHC1 09:25
PROVIDERS: ATTEND Internal Medicine
DX: E78.2 Mixed hyperlipidemia (principal); I50.30 Unspecified diastolic (congestive) heart failure; T86.21 Heart transplant rejection; T86.22 Heart transplant failure; T86.23 Heart transplant infection; T86.290 Cardiac allograft vasculopathy
CPT/HCPCS: 36415; 80048; 85025

== ENCOUNTER → 2022-05-30 | Outpatient (CLI) | payer MEDICARE, OTHER | END | disposition home or self-care (01) | LOC: LABWHC1 09:28 | PROVIDERS: ATTEND Internal Medicine | DX: I50.30 Unspecified diastolic (congestive) heart failure (principal); T86.21 Heart transplant rejection; T86.23 Heart transplant infection; E78.2 Mixed hyperlipidemia; Y82.9 Unspecified medical devices associated with adverse incidents | CPT/HCPCS: 36415 ==

== ENCOUNTER → 2022-06-03 | Outpatient (CLI) | payer MEDICARE, OTHER | END | disposition home or self-care (01) | LOC: LABWHC1 12:34 | PROVIDERS: ATTEND Internal Medicine | DX: Z53.9 Procedure and treatment not carried out, unspecified reason (principal) ==

== ENCOUNTER → 2022-06-09 | Outpatient (CLI) | payer MEDICARE, OTHER | END | disposition home or self-care (01) | LOC: LABWHC1 09:52 | PROVIDERS: ATTEND Internal Medicine | DX: Z53.9 Procedure and treatment not carried out, unspecified reason (principal) ==

== ENCOUNTER → 2022-06-22 | Outpatient (CLI) | payer MEDICARE, OTHER ==
[2022-06-22 16:33] LABS: African American GFR (CKD) 69.2 (60.0-200.0); Albumin 4.1 g/dL (3.8-4.9); Albumin/Globulin Ratio 1.93 (1.60-3.17); Anion Gap 11.6 mmol/L (10.00-18.00); BUN/Creat Ratio 18.43 Ratio (12.00-20.00); Blood Urea Nitrogen 23.4 mg/dL (9.0-27.0); Calcium 9.6 mg/dL (8.7-10.3); Carbon Dioxide 23.6 mmol/L (20.0-27.5); Globulin 2.1 g/dL (1.6-3.3); Magnesium 1.8 mg/dL (1.5-2.4); Non-African American GFR(CKD) 59.7 (60.0-200.0); Potassium 4.3 mmol/L (3.5-5.5); Total Bilirubin 0.5 mg/dL (0.30-1.20); Total Protein 6.2 g/dL (6.2-8.2)
[2022-06-22 17:22] LABS: HCT 37.2 % (39.6-50.0); HGB 12.3 g/dL (13.0-17.0); MCH 33.2 pg (27.0-32.0); MCHC 33.1 g/dL (32.0-37.0); MCV 100.3 fL (80.0-97.0); Mean Platelet Volume 9.8 fL (9.5-12.2); NRBC Per 100 WBC 0 /100 WBCS (0.0-0.0); Platelet Count 157 X 10*3/uL (140-440); RBC 3.71 X 10*6/uL (4.40-5.60); RDW 14.5 % (11.5-14.5); WBC 1.99 X 10*3/uL (4.50-10.00)
== END | disposition home or self-care (01) ==
LOC: LABWHC1 09:35
PROVIDERS: ATTEND Internal Medicine
DX: T86.21 Heart transplant rejection (principal); T86.22 Heart transplant failure; T86.23 Heart transplant infection; E78.2 Mixed hyperlipidemia; I50.30 Unspecified diastolic (congestive) heart failure; T86.290 Cardiac allograft vasculopathy
CPT/HCPCS: 36415; 80053; 82550; 83735; 83880; 85027

== ENCOUNTER → 2022-07-08 | Outpatient (CLI) | payer MEDICARE, OTHER ==
[2022-07-08 14:30] LABS: HCT 37.2 % (39.6-50.0); HGB 12.3 g/dL (13.0-17.0); MCHC 33.1 g/dL (32.0-37.0); MCV 99.7 fL (80.0-97.0); Mean Platelet Volume 10.5 fL (9.5-12.2); NRBC Per 100 WBC 0 /100 WBCS (0.0-0.0); Platelet Count 142 X 10*3/uL (140-440); RBC 3.73 X 10*6/uL (4.40-5.60); RDW 13.7 % (11.5-14.5); WBC 1.79 X 10*3/uL (4.50-10.00)
[2022-07-08 14:50] LABS: Basophils # (M) 0.04 X 10*3/uL (0.00-0.10); Eosinophils # (M) 0.11 X 10*3/uL (0.04-0.35); Lymphocytes # (M) 0.29 X 10*3/uL (0.90-5.00); Monocytes # (M) 0.14 X 10*3/uL (0.20-1.00); Neutrophils # (M) 1.22 X 10*3/uL (2.00-8.90); Neutrophils % (M) 68 %
[2022-07-08 14:57] LABS: Glucose 92 mg/dL (70-110); Sodium 141 mmol/L (135-145)
[2022-07-08 14:58] LABS: ALT 21 U/L (10-49); AST 27 U/L (14-35); African American GFR (CKD) 63.7 (60.0-200.0); Albumin/Globulin Ratio 1.61 (1.60-3.17); Alkaline Phosphatase 86 U/L (41-126); BUN/Creat Ratio 19.19 Ratio (12.00-20.00); Blood Urea Nitrogen 26.1 mg/dL (9.0-27.0); Calcium 9.2 mg/dL (8.7-10.3); Carbon Dioxide 24.9 mmol/L (20.0-27.5); Chloride 107 mmol/L (96-109); Chol/HDL Ratio 2.85 Ratio; Globulin 2.5 g/dL (1.6-3.3); LDL Cholesterol,Calculated 101.8 mg/dL (0.0-131.0); Potassium 4.5 mmol/L (3.5-5.5); Total Protein 6.4 g/dL (6.2-8.2)
[2022-07-11 11:36] LABS: CMV DNA Qualitative Not detected (Not detected); CMV DNA, Quantitative <50 IU/mL (<50); LOG CMV Copies/mL <126 Copies/mL (<126); Log Cytomegalovirus <1.70 (<1.70)
[2022-07-11 12:56] LABS: Glucose-6-Phosphate Dehydrogen 12.3 U/g Hgb (7.0-20.5)
== END | disposition home or self-care (01) ==
LOC: LABWHC1 09:14
PROVIDERS: ATTEND Internal Medicine
DX: Z00.01 Encounter for general adult medical examination with abnormal findings (principal); Z12.5 Encounter for screening for malignant neoplasm of prostate; Z94.0 Kidney transplant status; M10.9 Gout, unspecified; E78.2 Mixed hyperlipidemia; T86.20 Unspecified complication of heart transplant; T86.21 Heart transplant rejection; T86.22 Heart transplant failure; T86.23 Heart transplant infection; T86.290 Cardiac allograft vasculopathy; I50.30 Unspecified diastolic (congestive) heart failure; Y69 Unspecified misadventure during surgical and medical care
CPT/HCPCS: 80061; 80053; 82955; 84550; 85025; 87497; 36415; G0103

== ENCOUNTER → 2022-07-18 | Outpatient (CLI) | payer MEDICARE, OTHER ==
[2022-07-18 10:19] LABS: Appearance,Urine Clear (Clear); Bilirubin,Urine Negative (Negative); Blood,Urine Negative (Negative); Color,Urine Light Yellow; Glucose,Urine (UA) Negative (Negative); Ketones,Urine Negative (Negative); Leukocyte Esterase,Urine Negative (Negative); Nitrite,Urine Negative (Negative); Protein,Urine Negative (Negative); Specific Gravity,Urine 1.015 (1.001-1.035); Urobilinogen,Urine <2.0 mg/dL (<2.0)
[2022-07-18 11:14] LABS: Creatinine,Urine Random 98.7 mg/dL; Protein/Creatinine Ratio,Urine 0.091
[2022-07-18 16:23] LABS: African American GFR (CKD) 56.6 (60.0-200.0); Anion Gap 14.4 mmol/L (10.00-18.00); BUN/Creat Ratio 13.4 Ratio (12.00-20.00); Blood Urea Nitrogen 20.1 mg/dL (9.0-27.0); Calcium 9.8 mg/dL (8.7-10.3); Carbon Dioxide 24.6 mmol/L (20.0-27.5); Non-African American GFR(CKD) 48.8 (60.0-200.0); Potassium 4.2 mmol/L (3.5-5.5)
[2022-07-18 17:56] LABS: Basophils # (M) 0.07 X 10*3/uL (0.00-0.10); HCT 39.3 % (39.6-50.0); HGB 13.2 g/dL (13.0-17.0); MCH 32.9 pg (27.0-32.0); MCHC 33.6 g/dL (32.0-37.0); Mean Platelet Volume 10.7 fL (9.5-12.2); NRBC Per 100 WBC 0 /100 WBCS (0.0-0.0); Neutrophils # (M) 1.81 X 10*3/uL (2.00-8.90); Neutrophils % (M) 73 %; Platelet Count 160 X 10*3/uL (140-440); RBC 4.01 X 10*6/uL (4.40-5.60); RDW 13.7 % (11.5-14.5); WBC 2.48 X 10*3/uL (4.50-10.00)
== END | disposition home or self-care (01) ==
LOC: LABWHC1 09:25
PROVIDERS: ATTEND Internal Medicine
DX: T86.21 Heart transplant rejection (principal); T86.23 Heart transplant infection; Z94.1 Heart transplant status; E78.2 Mixed hyperlipidemia; Z94.0 Kidney transplant status
CPT/HCPCS: 36415; 80048; 81003; 82570; 84156; 85025

== ENCOUNTER → 2022-08-02 | Outpatient (CLI) | payer MEDICARE, OTHER | END | disposition home or self-care (01) | LOC: LABWHC1 09:37 | PROVIDERS: ATTEND Internal Medicine | DX: Z53.9 Procedure and treatment not carried out, unspecified reason (principal) ==

== ENCOUNTER → 2022-08-15 | Outpatient (CLI) | payer MEDICARE, OTHER | END | disposition home or self-care (01) | LOC: LABWHC1 10:30 | PROVIDERS: ATTEND Internal Medicine | DX: Z53.9 Procedure and treatment not carried out, unspecified reason (principal) ==

== ENCOUNTER → 2022-08-31 | Outpatient (CLI) | payer MEDICARE, OTHER ==
[2022-08-31 11:22] LABS: Protein/Creatinine Ratio,Urine 0.164
[2022-08-31 16:04] LABS: Basophils # (A) 0.02 X 10*3/uL (0.00-0.10); Basophils % (A) 0.5 %; Eosinophils # (A) 0.15 X 10*3/uL (0.04-0.35); Eosinophils % (A) 3.9 %; HCT 38.9 % (39.6-50.0); HGB 12.5 g/dL (13.0-17.0); Lymphocytes # (A) 1.16 X 10*3/uL (0.90-5.00); Lymphocytes % (A) 30.4 %; MCH 32.4 pg (27.0-32.0); MCHC 32.1 g/dL (32.0-37.0); MCV 100.8 fL (80.0-97.0); Monocytes # (A) 0.56 X 10*3/uL (0.20-1.00); Monocytes % (A) 14.7 %; NRBC Per 100 WBC 0 /100 WBCS (0.0-0.0); Neutrophils # (A) 1.88 X 10*3/uL (1.80-7.70); Neutrophils % (A) 49.5 %; Platelet Count 116 X 10*3/uL (140-440); RBC 3.86 X 10*6/uL (4.40-5.60); RDW 13.2 % (11.5-14.5); WBC 3.81 X 10*3/uL (4.50-10.00)
[2022-08-31 17:30] LABS: African American GFR (CKD) 63.3 (60.0-200.0); Albumin 3.9 g/dL (3.8-4.9); Anion Gap 11.2 mmol/L (10.00-18.00); BUN/Creat Ratio 14.56 Ratio (12.00-20.00); Blood Urea Nitrogen 19.8 mg/dL (9.0-27.0); Calcium 8.9 mg/dL (8.7-10.3); Carbon Dioxide 22.3 mmol/L (20.0-27.5); Non-African American GFR(CKD) 54.6 (60.0-200.0); Potassium 4.1 mmol/L (3.5-5.5)
[2022-08-31 17:34] LABS: Appearance,Urine Clear (Clear); Bilirubin,Urine Negative (Negative); Blood,Urine Negative (Negative); Color,Urine Yellow (Yellow); Ketones,Urine Trace mg/dL (Negative); Nitrite,Urine Negative (Negative); PH, Urine 5.5 (5.0-8.0); Specific Gravity,Urine 1.021 (1.001-1.030); Urobilinogen,Urine 0.2 (0.2,1.0)
== END | disposition home or self-care (01) ==
LOC: LABWHC1 09:26
PROVIDERS: ATTEND Internal Medicine
DX: T86.21 Heart transplant rejection (principal); T86.22 Heart transplant failure; T86.23 Heart transplant infection; E78.2 Mixed hyperlipidemia; I50.30 Unspecified diastolic (congestive) heart failure; Y82.9 Unspecified medical devices associated with adverse incidents
CPT/HCPCS: 36415; 80048; 80069; 81003; 82570; 84156; 85025

== ENCOUNTER → 2022-09-12 | Outpatient (CLI) | payer MEDICARE, OTHER ==
[2022-09-12 14:56] LABS: Basophils # (A) 0.01 X 10*3/uL (0.00-0.10); Basophils % (A) 0.4 %; Eosinophils # (A) 0.11 X 10*3/uL (0.04-0.35); Eosinophils % (A) 3.9 %; HCT 39.7 % (39.6-50.0); HGB 12.5 g/dL (13.0-17.0); Immature Grans, Automated 0.7 %; Lymphocytes # (A) 0.59 X 10*3/uL (0.90-5.00); MCHC 31.5 g/dL (32.0-37.0); MCV 98.5 fL (80.0-97.0); Mean Platelet Volume 10.5 fL (9.5-12.2); Monocytes # (A) 0.11 X 10*3/uL (0.20-1.00); Monocytes % (A) 3.9 %; NRBC Per 100 WBC 0 /100 WBCS (0.0-0.0); Neutrophils # (A) 1.97 X 10*3/uL (1.80-7.70); Neutrophils % (A) 70.1 %; Platelet Count 153 X 10*3/uL (140-440); RBC 4.03 X 10*6/uL (4.40-5.60); RDW 13.2 % (11.5-14.5); WBC 2.81 X 10*3/uL (4.50-10.00)
[2022-09-12 14:58] LABS: African American GFR (CKD) 57.1 (60.0-200.0); Anion Gap 10.3 mmol/L (10.00-18.00); BUN/Creat Ratio 19.12 Ratio (12.00-20.00); Blood Urea Nitrogen 28.3 mg/dL (9.0-27.0); Calcium 9.4 mg/dL (8.7-10.3); Carbon Dioxide 24.4 mmol/L (20.0-27.5); Non-African American GFR(CKD) 49.3 (60.0-200.0); Potassium 4.4 mmol/L (3.5-5.5)
== END ==
LOC: LABWHC1 09:23
PROVIDERS: ATTEND Internal Medicine
DX: Z94.1 Heart transplant status (principal); T86.20 Unspecified complication of heart transplant; T86.21 Heart transplant rejection; T86.22 Heart transplant failure; T86.23 Heart transplant infection; T86.290 Cardiac allograft vasculopathy; E78.2 Mixed hyperlipidemia; I50.30 Unspecified diastolic (congestive) heart failure
CPT/HCPCS: 36415; 80048; 85025; 87497

== ENCOUNTER 2022-09-13 03:20 | Emergency (ER) | payer MEDICARE, OTHER ==
[2022-09-13 03:31] VITALS: BP 126/79; PULSE 85; RESP 16; TEMP 97.8
[2022-09-13 04:36] LABS: Basophils % (A) 0 %; Eosinophils # (A) 0.1 k/uL (0-0.7); Eosinophils % (A) 2 %; HCT 21.2 % (39.0-53.0); HGB 7.2 gm/dL (13.0-17.5); Lymphocytes # (A) 0.4 k/uL (1.0-4.8); Lymphocytes % (A) 16 %; MCH 31.9 pg (25.0-35.0); MCHC 33.8 g/dL (31.0-37.0); MCV 94.6 fL (80.0-100.0); Mean Platelet Volume 8.1; Monocytes # (A) 0.1 k/uL (0-1.0); Monocytes % (A) 3 %; Neutrophils # (A) 1.8 k/uL (1.3-7.7); Neutrophils % (A) 77 %; RBC 2.24 m/uL (4.30-5.90); RDW 13.9 % (11.5-15.5); WBC 2.3 k/uL (3.8-10.6)
--- NOTE | 2022-09-13 04:45 | CT ---
EXAMINATION TYPE: CT brain wo con DATE OF EXAM: 09/13/2022 COMPARISON: 10/25/2014 HISTORY: seizure activity. h/o stroke 12/2021. CT DLP: 1113.8 mGycm Automated exposure control for dose reduction was used. There is 5 x 3.5 cm area of hypodensity right posterior frontal lobe padilla and white matter consistent with old cortical infarct. There is no mass effect or midline shift. No sign of intracranial hemorrh age. The calvarium is intact. There is normal aeration of the mastoid sinuses. Skull base is intact. There is no evidence of focal bone destruction. IMPRESSION: Old large right frontal lobe cortical infarct. No evidence of acute intracranial abnormality. No rece nt exam available for comparison.
--- NOTE | 2022-09-13 04:46 | XR ---
EXAMINATION TYPE: XR chest 2V DATE OF EXAM: 09/13/2022 COMPARISON: NONE HISTORY: Sleep apnea. Seizure. TECHNIQUE: FINDINGS: Heart is normal. Lungs are clear of infiltrate. There are sternal wires. Costophrenic angle s are clear. Bony thorax is intact. IMPRESSION: No active cardiopulmonary disease. No change.
[2022-09-13 04:50] LABS: Albumin 3.1 g/dL (3.5-5.0); Calcium 7.8 mg/dL (8.4-10.2); Magnesium 1.5 mg/dL (1.6-2.3); Potassium 4.1 mmol/L (3.5-5.1); Total Bilirubin 0.3 mg/dL (0.2-1.3); Total Protein 5.4 g/dL (6.3-8.2)
[2022-09-13 05:15] LABS: Platelet Count 80 k/uL (150-450)
--- NOTE | 2022-09-13 05:31 | ED ---
General Adult HPI - General Chief complaint: Seizure Stated complaint: Seizure Time Seen by Provider: 09/13/22 03:50 Source: patient, EMS, RN notes reviewed, old records reviewed Mode of arrival: EMS Limitations: no limitations - History of Present Illness Initial comments: Patient is a 62-year-old male with past medical history remarkable for prior atr ial fibrillation, CHF status post cardiac transplant, kidney transplant, presents to the emergency department after an episode at home witnessed by . Uncertain if the patient had a seizure versus possible dyspnea versus possible stroke. Patient is on a CPAP at home when his came to bed, and he began shaking his arms. He does recall doing this, trying to get the mask off. Patient's states that he seemed confused. There was possible momentary facial droop, as well as possible momentary slurred speech when he got the mask off. This all self resolved quickly. Was able to ambulate. Walked himself out to the ambulance. Had no acute complaints afterwards. No history of seizures. Does have a history of a stroke. His no longer on blood thinners. Denied any chest pain, shortness breath, abdominal pain, nausea, vomiting. His no other acute complaints at this time. Is resting comfortably. States he is uncertain what was going on but did not have urinary or bowel incontinence and denies biting his tongue. States he was conscious during elevated and does remember the episode but cannot explain his actions during it.. Patient's family brought him here for further evaluation - Related Data Home Medications Medication Instructions Recorded Confirmed Escitalopram [Lexapro] 10 mg PO DAILY 01/30/17 07/15/22 allopurinoL [Zyloprim] 25 mg PO DAILY 11/20/18 07/15/22 Tacrolimus [Prograf] 2 mg PO BID 03/31/22 07/15/22 dexAMETHasone [Decadron] 5 mg PO BID 03/31/22 07/15/22 Alendronate Sodium [Fosamax] 70 mg PO WEEKLY 06/03/22 07/15/22 Ascorbic Acid [Vitamin C] 500 mg PO BID 06/03/22 07/15/22 Aspirin [Adult Low Dose Aspirin EC] 81 mg PO DAILY 06/03/22 07/15/22 Calcium Citrate/Vitamin D3 1 each PO DAILY 06/03/22 07/15/22 [Calcium Cit-Vit D3 500 mg Chew] Cephalexin [Keflex] 500 mg PO DAILY 06/03/22 07/15/22 Magnesium Chloride [Mag64] 128 mg PO BID 06/03/22 07/15/22 Omeprazole 20 mg PO DAILY 06/03/22 07/15/22 Pravastatin Sodium [Pravachol] 20 mg PO DAILY 06/03/22 07/15/22 Vitamin E (Dl,Tocopheryl Acet) 400 unit PO BID 06/03/22 07/15/22 [Vitamin E (400 Iu = 180 mg)] predniSONE 5 mg PO DAILY 07/08/22 07/15/22 Allergies Allergy/AdvReac Type Severity Reaction Status Date / Time Iodine and Iodide Containing Allergy Swelling Verified 09/13/22 03:27 Produc shellfish derived [Shellfish] Allergy Swelling Verified 09/13/22 03:27 dofetilide [From Tikosyn] AdvReac V-Tach/Kidney Verified 09/13/22 03:27 Failure heparin AdvReac Unknown Verified 09/13/22 03:27 Review of Systems ROS Statement: Those systems with pertinent positive or pertinent negative responses have been documented in the HPI. Review of Systems: CONST: Denies fever EYES: Denies blurry vision ENT: Denies nasal congestion C/V: Denies Chest pain RESP: Denies shortness of breath GI: Denies abdominal pain : Denies dysuria SKIN: Denies rash. MSK: Denies joint pain. NEURO: Denies headache ROS Other: All systems not noted in ROS Statement are negative. Past Medical History Past Medical History: Atrial Fibrillation, Atrial Flutter, Coronary Artery Disease (CAD), Chest Pain / Angina, Hyperlipidemia, Hypertension, Sleep Apnea/CPAP/BIPAP Additional Past Medical History / Comment(s): ,HX OF GOUT, , USES C PAP AT NIGHT, histoplasmosis LT EYE. non sustained VT, SEE DR HINES'S H&P. VERTIGO. History of Any Multi-Drug Resistant Organisms: None Reported Past Surgical History: AICD, Cardiac Ablation, EPS, Heart Catheterization Additional Past Surgical History / Comment(s): HEART CATH X2; WISDOM TEETH REMOVED; CARDIOVERSION X3 ATTEMPTS - LAST 12/15/14 Past Anesthesia/Blood Transfusion Reactions: No Reported Reaction Additional Past Anesthesia/Blood Transfusion Reaction / Comment(s): VERTIGO Type of Cardiac Device: AICD Device Placement Date:: 01/26/2015 Past Psychological History: No Psychological Hx Reported Smoking Status: Former smoker - Past Family History Mother Family Medical History: Cancer, CVA/TIA Additional Family Medical History / Comment(s): BREAST CA Father Family Medical History: Cancer Additional Family Medical History / Comment(s): LEUKEMIA General Exam - General Exam Comments Initial Comments: General: Appears in no acute distress. HEAD: Normal with no signs of head trauma. EYES: PERRLA, EOMI, conjunctiva normal, no discharge. ENT: Hearing grossly intact, normal oropharynx. RESPIRATORY: Clear breath sounds bilaterally. No wheezes, rales, or rhonchi. C/V: Regular rate and rhythm. S1 and S2 auscultated, no edema, peripheral pulses 2+ and intact throughout ABD: Abd is soft, nontender, nondistended EXT: Normal range of motion, no obvious deformity SKIN: No rashes or lesions observed on exposed skin. NEURO: Alert and oriented x 4. Cranial nerves II-XII intact. No focal sensory or strength deficits. GCS of 15. NIH of 0. Limitations: no limitations Course Vital Signs 09/13/22 03:27 Temperature 97.8 F Pulse Rate 85 Respiratory 16 Rate Blood Pressure 126/79 O2 Sat by Pulse 97 Oximetry Medical Decision Making - Medical Decision Making Based on the patient's presentation and physical exam, I have low suspicion for seizure activity at this time, as well as low suspicion for acute stroke but cannot definitively rule out TIA or other etiology at this time. With the patient's, acute medical history, we will obtain CT brain as well as basic laboratory studies. Screening EKG will also be obtained. They were in agreement this plan. Vital signs within acceptable limits. EKG showed no signs of acute ischemia. Chest x-ray revealed no acute cardiopulmonary process. Brain CT showed no acute intracranial process, but did redemonstrate the old right frontal stroke. Laboratory studies were compared to studies from yesterday. They're relatively unchanged, except for the patient has an abnormal CBC which I suspect may be due to lab error/dilution. We will repeat laboratory studies at this time, as the patient has a significant drop in his hemoglobin/platelets however he has no symptoms to suggest any cause for this. Vital signs remained stable.Patient's repeat CBC was within acceptable limits, and stable from yesterday. Hemoglobin was 12. Platelet count was 134. This is similar to laboratory studies obtained yesterday, further supporting my suspicion that the initial CBC was diluted. Urinalysis is unremarkable. At this time, patient remains asymptomatic. He would like to go home. It does not appear that the patient had a seizure. Patient has no evidence of TIA or stroke on imaging or workup. No other abnormalities at this time. Patient and his family are very compliant with follow-up with primary care physicians. I do believe this is reasonable. We discussed that there is no clear reason for the episode that occurred earlier this evening. Discussed strict return precautions. They were in agreement with this plan. Patient will be discharged home at this time. He has a follow-up appointment with infectious disease on Monday. I instructed the patient to follow up with their PCP in the next 1-3 days. I explained that the patient should return to the emergency department if they experience any worsening symptoms. Strict return precautions were discussed with the patient. The patient expressed understanding of these instructions. I answered all questions that the patient had. The patient was discharged home in good condition with their prescriptions and follow up information. Was pt. sent in by a medical professional or institution (, PA, [employer], urgent care, hospital, or alf...) When possible be specific @ -No Did you speak to anyone other than the patient for history (EMS, parent, family, police, friend...)? What history was obtained from this source @ -Yes, I spoke with family including and daughter who provided additional history regarding the patient, including his extensive history of recent heart and kidney transplant approximately nearly one year ago. Did you review nursing and triage notes (agree or disagree)? Why? @ -I reviewed and agree with nursing and triage notes Were old charts reviewed (outside hosp., previous admission, EMS record, old EKG, old radiological studies, urgent care reports/EKG's, alf records)? Report findings @ -Old charts were reviewed. Old EKGs were reviewed. Differential Diagnosis (chest pain, altered mental status, abdominal pain women, abdominal pain men, vaginal bleeding, weakness, fever, dyspnea, syncope, headache, dizziness, GI bleed, back pain, seizure, CVA, palpatations, mental health)? @ -Seizure versus TIA versus CVA. Dehydration. This list is not all encompassing. Patient also may have been just waking up from a dream. EKG interpreted by me (3pts min.). @ -As above X-rays interpreted by me (1pt min.). @ -Chest x-ray shows no acute cardiopulmonary process. CT interpreted by me (1pt min.). @ -CT brain shows no acute intracranial process, bleed. There is an old chronic infarct seen in the right frontal lobe. U/S interpreted by me (1pt. min.). @ -None done What testing was considered but not performed or refused? (CT, X-rays, U/S, labs)? Why? @ -None What meds were considered but not given or refused? Why? @ -None Did you discuss the management of the patient with other professionals (professionals i.e. , PA, [employer], lab, RT, psych nurse, social science research assistant, underground utility locator, te acher, safety security officer, disease case manager rn)? Give summary @ -No Was smoking cessation discussed for >3mins.? @ -No Was critical care preformed (if so, how long)? @ -No Were there social determinants of health that impacted care today? How? (Homelessness, low income, unemployed, alcoholism, drug addiction, transportation, low edu. Level, literacy, decrease access to med. care, usp, rehab)? @ -No Was there de-escalation of care discussed even if they declined (Discuss DNR or withdrawal of care, Hospice)? DNR status @ -No What co-morbidities impacted this encounter? (DM, HTN, Smoking, COPD, CAD, Cancer, CVA, ARF, Chemo, Hep., AIDS, mental health diagnosis, sleep apnea, morbid obesity)? @ -Prior history of stroke, cardiac transplant, renal transplant. Was patient admitted / discharged? Hospital course, mention meds given and route, prescriptions, significant lab abnormalities, going to OR and other pertinent info. @ -Discharged home. See above for ED course. Undiagnosed new problem with uncertain prognosis? @ -No Drug Therapy requiring intensive monitoring for toxicity (Heparin, Nitro, In sulin, Cardizem)? @ -No Were any procedures done? @ -No Diagnosis/symptom? @ -Dyspnea episode Acute, or Chronic, or Acute on Chronic? @ -Acute Uncomplicated (without systemic symptoms) or Complicated (systemic symptoms)? @ -Uncomplicated Side effects of treatment? @ -No Exacerbation, Progression, or Severe Exacerbation? @ -No Poses a threat to life or bodily function? How? (Chest pain, [place], [place], pneumonia, PE, COPD, DKA, ARF, appy, cholecystitis, CVA, Diverticulitis, Homicidal, Suicidal, threat to staff... and all critical care pts) @ -No Diagnosis/symptom? @ -Anxiety about health Acute, or Chronic, or Acute on Chronic? @ -Acute Uncomplicated (without systemic symptoms) or Complicated (systemic symptoms)? @ -Uncomplicated Side effects of treatment? @ -none Exacerbation, Progression, or Severe Exacerbation] @ -no Poses a threat to life or bodily function? @ -no Diagnosis/symptom? @ -History of cardiac transplant Acute, or Chronic, or Acute on Chronic? @ -Chronic Uncomplicated (without systemic symptoms) or Complicated (systemic symptoms)? @ -Uncomplicated Side effects of treatment? @ -none Exacerbation, Progression, or Severe Exacerbation] @ -no Poses a threat to life or bodily function? @ -no Diagnosis/symptom? @ -History of renal transplant Acute, or Chronic, or Acute on Chronic? @ -Chronic Uncomplicated (without systemic symptoms) or Complicated (systemic symptoms)? @ -Uncomplicated Side effects of treatment? @ -none Exacerbation, Progression, or Severe Exacerbation] @ -no Poses a threat to life or bodily function? @ -no - Lab Data Result diagrams: 09/13/22 05:25 09/13/22 04:23 Lab Results 09/13/22 09/13/22 09/13/22 Range/Units 04:23 04:23 04:23 WBC 2.3 L (3.8-10.6) k/uL RBC 2.24 L (4.30-5.90) m/uL Hgb 7.2 L (13.0-17.5) gm/dL Hct 21.2 L (39.0-53.0) % MCV 94.6 (80.0-100.0) fL MCH 31.9 (25.0-35.0) pg MCHC 33.8 (31.0-37.0) g/dL RDW 13.9 (11.5-15.5) % Plt Count 80 L (150-450) k/uL MPV 8.1 Neutrophils % 77 % Lymphocytes % 16 % Monocytes % 3 % Eosinophils % 2 % Basophils % 0 % Neutrophils # 1.8 (1.3-7.7) k/uL Lymphocytes # 0.4 L (1.0-4.8) k/uL Monocytes # 0.1 (0-1.0) k/uL Eosinophils # 0.1 (0-0.7) k/uL Basophils # 0.0 (0-0.2) k/uL Manual Slide Review Performed PT (9.0-12.0) sec INR (<1.2) APTT (22.0-30.0) sec Sodium 139 (137-145) mmol/L Potassium 4.1 (3.5-5.1) mmol/L Chloride 112 H (98-107) mmol/L Carbon Dioxide 23 (22-30) mmol/L Anion Gap 4 mmol/L BUN 25 H (9-20) mg/dL Creatinine 1.17 (0.66-1.25) mg/dL Est GFR (CKD-EPI)AfAm 76 (>60 ml/min/1.73 sqM) Est GFR (CKD-EPI)NonAf 65 (>60 ml/min/1.73 sqM) Glucose 123 H (74-99) mg/dL Plasma Lactic Acid Maxime 1.3 (0.7-2.0) mmol/L Calcium 7.8 L (8.4-10.2) mg/dL Magnesium 1.5 L (1.6-2.3) mg/dL Total Bilirubin 0.3 (0.2-1.3) mg/dL AST 26 (17-59) U/L ALT 23 (4-49) U/L Alkaline Phosphatase 75 (38-126) U/L Total Protein 5.4 L (6.3-8.2) g/dL Albumin 3.1 L (3.5-5.0) g/dL Urine Color Urine Appearance (Clear) Urine pH (5.0-8.0) Ur Specific Randolph (1.001-1.035) Urine Protein (Negative) Urine Glucose (UA) (Negative) Urine Ketones (Negative) Urine Blood (Negative) Urine Nitrite (Negative) Urine Bilirubin (Negative) Urine Urobilinogen (<2.0) mg/dL Ur Leukocyte Esterase (Negative) 09/13/22 09/13/22 09/13/22 Range/Units 05:25 05:25 05:40 WBC 4.0 (3.8-10.6) k/uL RBC 3.73 L (4.30-5.90) m/uL Hgb 12.0 L D (13.0-17.5) gm/dL Hct 34.8 L (39.0-53.0) % MCV 93.2 (80.0-100.0) fL MCH 32.1 (25.0-35.0) pg MCHC 34.4 (31.0-37.0) g/dL RDW 13.7 (11.5-15.5) % Plt Count 134 L D (150-450) k/uL MPV 8.1 Neutrophils % 79 % Lymphocytes % 16 % Monocytes % 2 % Eosinophils % 2 % Basophils % 1 % Neutrophils # 3.2 (1.3-7.7) k/uL Lymphocytes # 0.6 L (1.0-4.8) k/uL Monocytes # 0.1 (0-1.0) k/uL Eosinophils # 0.1 (0-0.7) k/uL Basophils # 0.0 (0-0.2) k/uL Manual Slide Review PT 10.7 (9.0-12.0) sec INR 1.0 (<1.2) APTT 22.0 (22.0-30.0) sec Sodium (137-145) mmol/L Potassium (3.5-5.1) mmol/L Chloride (98-107) mmol/L Carbon Dioxide (22-30) mmol/L Anion Gap mmol/L BUN (9-20) mg/dL Creatinine (0.66-1.25) mg/dL Est GFR (CKD-EPI)AfAm (>60 ml/min/1.73 sqM) Est GFR (CKD-EPI)NonAf (>60 ml/min/1.73 sqM) Glucose (74-99) mg/dL Plasma Lactic Acid Maxime (0.7-2.0) mmol/L Calcium (8.4-10.2) mg/dL Magnesium (1.6-2.3) mg/dL Total Bilirubin (0.2-1.3) mg/dL AST (17-59) U/L ALT (4-49) U/L Alkaline Phosphatase (38-126) U/L Total Protein (6.3-8.2) g/dL Albumin (3.5-5.0) g/dL Urine Color Light Yellow Urine Appearance Clear (Clear) Urine pH 7.0 (5.0-8.0) Ur Specific Randolph 1.016 (1.001-1.035) Urine Protein Negative (Negative) Urine Glucose (UA) Negative (Negative) Urine Ketones Negative (Negative) Urine Blood Negative (Negative) Urine Nitrite Negative (Negative) Urine Bilirubin Negative (Negative) Urine Urobilinogen <2.0 (<2.0) mg/dL Ur Leukocyte Esterase Negative (Negative) - EKG Data -: EKG Interpreted by Me EKG Comments: 12-lead Electrocardiogram Interpretation Note EKG was reviewed and interpreted by myself. 12-lead ECG performed at 0418 is interpreted by me as revealing normal sinus rhythm at a rate of 77 beats per minute. Ashby is normal. ID interval is 175 ms, QRS duration is 90 ms, QTc is 389 ms.. There were no acute ST or T wave abnormalities to suggest myocardial ischemia or injury. R wave progression across the precordium was satisfactory. By my interpretation this EKG is non-diagnostic for acute ischemia. Disposition Clinical Impression: Dyspnea, Anxiety about health, History of heart transplant, History of kidney transplant Disposition: HOME SELF-CARE Condition: Good Is patient prescribed a controlled substance at d/c from ED?: No Referrals: Blanca Porter III, MD [Primary Care Provider] - 1-2 days Time of Disposition: 06:05
[2022-09-13 05:40] LABS: Basophils % (A) 1 %; Eosinophils # (A) 0.1 k/uL (0-0.7); Eosinophils % (A) 2 %; HCT 34.8 % (39.0-53.0); Lymphocytes # (A) 0.6 k/uL (1.0-4.8); Lymphocytes % (A) 16 %; MCH 32.1 pg (25.0-35.0); MCHC 34.4 g/dL (31.0-37.0); MCV 93.2 fL (80.0-100.0); Mean Platelet Volume 8.1; Monocytes # (A) 0.1 k/uL (0-1.0); Monocytes % (A) 2 %; Neutrophils # (A) 3.2 k/uL (1.3-7.7); Neutrophils % (A) 79 %; RBC 3.73 m/uL (4.30-5.90); RDW 13.7 % (11.5-15.5)
[2022-09-13 05:49] LABS: Platelet Count 134 k/uL (150-450)
[2022-09-13 05:50] LABS: Appearance,Urine Clear (Clear); Bilirubin,Urine Negative (Negative); Blood,Urine Negative (Negative); Color,Urine Light Yellow; Glucose,Urine (UA) Negative (Negative); Ketones,Urine Negative (Negative); Leukocyte Esterase,Urine Negative (Negative); Nitrite,Urine Negative (Negative); Protein,Urine Negative (Negative); Specific Gravity,Urine 1.016 (1.001-1.035); Urobilinogen,Urine <2.0 mg/dL (<2.0)
[2022-09-13 05:56] LABS: Prothrombin Time 10.7 sec (9.0-12.0)
== END 2022-09-13 06:32 | disposition home or self-care (01) ==
LOC: EC 03:20
DX: R06.00 Dyspnea, unspecified (principal); F41.9 Anxiety disorder, unspecified; Z94.1 Heart transplant status; Z94.0 Kidney transplant status; I48.91 Unspecified atrial fibrillation; I25.10 Atherosclerotic heart disease of native coronary artery without angina pectoris; I11.0 Hypertensive heart disease with heart failure; I50.9 Heart failure, unspecified; G47.30 Sleep apnea, unspecified; E78.5 Hyperlipidemia, unspecified; Z79.82 Long term (current) use of aspirin; Z79.899 Other long term (current) drug therapy; Z91.013 Allergy to seafood; Z91.041 Radiographic dye allergy status; Z88.8 Allergy status to other drugs, medicaments and biological substances; Z87.891 Personal history of nicotine dependence
CPT/HCPCS: 36415; 70450; 71046; 80053; 81003; 83605; 83735; 85025; 85610; 85730; 93005; 99285

== ENCOUNTER → 2022-09-19 | Outpatient (CLI) | payer MEDICARE, OTHER ==
[2022-09-19 11:32] LABS: Creatinine,Urine Random 104.2 mg/dL; Protein/Creatinine Ratio,Urine 0.106
[2022-09-19 15:33] LABS: African American GFR (CKD) 51.2 (60.0-200.0); Albumin 4.2 g/dL (3.8-4.9); Anion Gap 8.8 mmol/L (10.00-18.00); BUN/Creat Ratio 19.63 Ratio (12.00-20.00); Blood Urea Nitrogen 31.8 mg/dL (9.0-27.0); Calcium 9.3 mg/dL (8.7-10.3); Carbon Dioxide 23.3 mmol/L (20.0-27.5); Non-African American GFR(CKD) 44.2 (60.0-200.0); Phosphorus 3.6 mg/dL (2.4-5.1); Potassium 4.4 mmol/L (3.5-5.5)
[2022-09-19 15:44] LABS: Appearance,Urine Clear (Clear); Bilirubin,Urine Negative (Negative); Blood,Urine Negative (Negative); Color,Urine Yellow (Yellow); Ketones,Urine Negative (Negative); Nitrite,Urine Negative (Negative); Specific Gravity,Urine 1.019 (1.001-1.030)
[2022-09-19 15:46] LABS: Basophils # (A) 0.03 X 10*3/uL (0.00-0.10); Basophils % (A) 0.9 %; Eosinophils % (A) 3.1 %; HCT 38.9 % (39.6-50.0); HGB 12.3 g/dL (13.0-17.0); Immature Grans, Automated 1.2 %; Lymphocytes # (A) 0.62 X 10*3/uL (0.90-5.00); Lymphocytes % (A) 19.3 %; MCH 31.7 pg (27.0-32.0); MCHC 31.6 g/dL (32.0-37.0); MCV 100.3 fL (80.0-97.0); Mean Platelet Volume 10.7 fL (9.5-12.2); Monocytes % (A) 3.1 %; NRBC Per 100 WBC 0 /100 WBCS (0.0-0.0); Neutrophils # (A) 2.32 X 10*3/uL (1.80-7.70); Neutrophils % (A) 72.4 %; Platelet Count 169 X 10*3/uL (140-440); RBC 3.88 X 10*6/uL (4.40-5.60); RDW 13.8 % (11.5-14.5); WBC 3.21 X 10*3/uL (4.50-10.00)
== END | disposition home or self-care (01) ==
LOC: LABWHC1 10:09
PROVIDERS: ATTEND Internal Medicine
DX: T86.20 Unspecified complication of heart transplant (principal); I50.30 Unspecified diastolic (congestive) heart failure; E78.2 Mixed hyperlipidemia; T86.23 Heart transplant infection; T86.22 Heart transplant failure; T86.21 Heart transplant rejection; T86.290 Cardiac allograft vasculopathy; Y82.9 Unspecified medical devices associated with adverse incidents
CPT/HCPCS: 36415; 80048; 80069; 81003; 82570; 84156; 85025; 87497

== ENCOUNTER → 2022-09-26 | Outpatient (CLI) | payer MEDICARE, OTHER ==
[2022-09-26 15:14] LABS: Basophils # (A) 0.03 X 10*3/uL (0.00-0.10); Basophils % (A) 1.3 %; Eosinophils # (A) 0.08 X 10*3/uL (0.04-0.35); Eosinophils % (A) 3.3 %; HCT 37.1 % (39.6-50.0); HGB 11.9 g/dL (13.0-17.0); Immature Grans, Automated 0.8 %; Lymphocytes # (A) 0.49 X 10*3/uL (0.90-5.00); Lymphocytes % (A) 20.4 %; MCH 31.6 pg (27.0-32.0); MCHC 32.1 g/dL (32.0-37.0); MCV 98.7 fL (80.0-97.0); Mean Platelet Volume 10.5 fL (9.5-12.2); Monocytes # (A) 0.12 X 10*3/uL (0.20-1.00); NRBC Per 100 WBC 0 /100 WBCS (0.0-0.0); Neutrophils # (A) 1.66 X 10*3/uL (1.80-7.70); Neutrophils % (A) 69.2 %; Platelet Count 156 X 10*3/uL (140-440); RBC 3.76 X 10*6/uL (4.40-5.60); RDW 14.1 % (11.5-14.5)
[2022-09-26 15:35] LABS: African American GFR (CKD) 51.6 (60.0-200.0); Anion Gap 11.2 mmol/L (10.00-18.00); BUN/Creat Ratio 15.4 Ratio (12.00-20.00); Blood Urea Nitrogen 24.8 mg/dL (9.0-27.0); Calcium 9.2 mg/dL (8.7-10.3); Carbon Dioxide 23.9 mmol/L (20.0-27.5); Non-African American GFR(CKD) 44.5 (60.0-200.0); Potassium 4.1 mmol/L (3.5-5.5)
[2022-09-28 11:20] LABS: CMV DNA Qualitative DETECTED (Not detected); CMV DNA, Quantitative 92 IU/mL (<50); LOG CMV Copies/mL 226 Copies/mL (<126); Log Cytomegalovirus 1.96 (<1.70)
== END | disposition home or self-care (01) ==
LOC: LABWHC1 09:50
PROVIDERS: ATTEND Internal Medicine
DX: T86.20 Unspecified complication of heart transplant (principal); T86.23 Heart transplant infection; T86.290 Cardiac allograft vasculopathy; T86.21 Heart transplant rejection; T86.22 Heart transplant failure; I50.30 Unspecified diastolic (congestive) heart failure; E78.2 Mixed hyperlipidemia
CPT/HCPCS: 36415; 80048; 85025; 87497

== ENCOUNTER → 2022-11-15 | Outpatient (CLI) | payer MEDICARE, OTHER ==
--- NOTE | 2022-11-15 13:52 | EEG ---
ELECTROENCEPHALOGRAM REPORT PREAMBLE: This is a 62-year-old male, who has history of a previous stroke, had an episode of some shaking while sleeping on 10/21/2022. This study is performed to rule out any epileptiform activity. CURRENT MEDICATIONS: Not available. EEG FINDINGS: This is a 21-channel digital EEG recorded with video component, utilizing 10/20 international system with referential and bipolar montages. Background consists of well-developed, moderately well regulated, mixed frequencies of 9-10 hertz alpha, with some fast frequency beta activity seen in bihemispheric region. Background is posterior dominant and is reactive to eye opening and closing. Photic driving response was not seen. Intermittent right frontotemporal focal slowing in delta range was seen. Drowsiness was seen with appearance of some theta frequency rhythm. Deeper stages of sleep were not seen. No definitive focal or generalized epileptiform activity was seen. EKG channel showed no obvious arrhythmia. IMPRESSION: This is a mildly abnormal EEG due to intermittent focal slowing in the right frontotemporal region. This may suggest focal cortical neuronal dysfunction. No epileptiform activity was seen. If your suspicion for seizure is high, suggest prolonged, sleep-deprived EEG. MMODL / IJN: [id number] /
== END ==
LOC: NEUROMAIN 08:04
PROVIDERS: ATTEND Family Medicine
DX: R41.82 Altered mental status, unspecified (principal); Z91.041 Radiographic dye allergy status; Z91.013 Allergy to seafood; Z88.8 Allergy status to other drugs, medicaments and biological substances; Z87.891 Personal history of nicotine dependence
CPT/HCPCS: 95816

== ENCOUNTER → 2022-12-12 | Outpatient (CLI) | payer MEDICARE, OTHER ==
[2022-12-12 16:10] LABS: Basophils # (A) 0.04 X 10*3/uL (0.00-0.10); Basophils % (A) 0.9 %; Eosinophils # (A) 0.11 X 10*3/uL (0.04-0.35); Eosinophils % (A) 2.5 %; HCT 42.9 % (39.6-50.0); HGB 13.1 g/dL (13.0-17.0); Immature Grans, Automated 0.5 %; Lymphocytes # (A) 1.01 X 10*3/uL (0.90-5.00); Lymphocytes % (A) 22.9 %; MCH 30.2 pg (27.0-32.0); MCHC 30.5 g/dL (32.0-37.0); MCV 98.8 fL (80.0-97.0); Mean Platelet Volume 10.8 fL (9.5-12.2); Monocytes # (A) 0.72 X 10*3/uL (0.20-1.00); Monocytes % (A) 16.3 %; NRBC Per 100 WBC 0 /100 WBCS (0.0-0.0); Neutrophils # (A) 2.51 X 10*3/uL (1.80-7.70); Neutrophils % (A) 56.9 %; Platelet Count 146 X 10*3/uL (140-440); RBC 4.34 X 10*6/uL (4.40-5.60); RDW 13.8 % (11.5-14.5); WBC 4.41 X 10*3/uL (4.50-10.00)
[2022-12-12 16:21] LABS: African American GFR (CKD) 56.2 (60.0-200.0); Albumin 4.4 g/dL (3.8-4.9); Albumin/Globulin Ratio 1.91 (1.60-3.17); Anion Gap 7.9 mmol/L (10.00-18.00); BUN/Creat Ratio 16.27 Ratio (12.00-20.00); Blood Urea Nitrogen 24.4 mg/dL (9.0-27.0); Calcium 9.6 mg/dL (8.7-10.3); Carbon Dioxide 25.1 mmol/L (20.0-27.5); Globulin 2.3 g/dL (1.6-3.3); Magnesium 1.7 mg/dL (1.5-2.4); Non-African American GFR(CKD) 48.5 (60.0-200.0); Potassium 4.4 mmol/L (3.5-5.5); Total Bilirubin 0.4 mg/dL (0.30-1.20); Total Protein 6.7 g/dL (6.2-8.2)
== END | disposition home or self-care (01) ==
LOC: LABWHC1 10:00
PROVIDERS: ATTEND Internal Medicine
DX: T86.22 Heart transplant failure (principal); T86.23 Heart transplant infection; E78.2 Mixed hyperlipidemia; I50.30 Unspecified diastolic (congestive) heart failure; T86.290 Cardiac allograft vasculopathy
CPT/HCPCS: 36415; 80053; 82550; 83735; 83880; 85025

== ENCOUNTER → 2023-01-25 | Outpatient (CLI) | payer MEDICARE, OTHER | END | disposition home or self-care (01) | LOC: LABMAIN 13:10 | PROVIDERS: ATTEND Physician Assistant | DX: Z20.822 Contact with and (suspected) exposure to COVID-19 (principal); R09.81 Nasal congestion | CPT/HCPCS: 87635 ==

== ENCOUNTER → 2023-03-02 | Outpatient (CLI) | payer MEDICARE, OTHER ==
[2023-03-02 16:33] LABS: BUN/Creat Ratio 17.53 Ratio (12.00-20.00); Blood Urea Nitrogen 26.3 mg/dL (9.0-27.0); Calcium 9.8 mg/dL (8.7-10.3); Carbon Dioxide 22.6 mmol/L (21.6-31.8); Chloride 106 mmol/L (96-109); Glucose 95 mg/dL (70-110); Potassium 4.4 mmol/L (3.5-5.5); Sodium 140 mmol/L (135-145)
[2023-03-02 16:42] LABS: Basophils # (A) 0.03 X 10*3/uL (0.00-0.10); Basophils % (A) 0.6 %; Eosinophils # (A) 0.13 X 10*3/uL (0.04-0.35); Eosinophils % (A) 2.4 %; HCT 42.8 % (39.6-50.0); HGB 14.3 d/dL (12.0-15.0); Lymphocytes # (A) 1.53 X 10*3/uL (0.90-5.00); Lymphocytes % (A) 28.4 %; MCH 30.8 pg (27.0-32.0); MCHC 33.4 d/dL (32.0-37.0); Mean Platelet Volume 10.8 FL (9.5-12.2); Monocytes % (A) 14.8 %; NRBC Per 100 WBC 0 X 10*3/uL (0.00-0.01); Neutrophils # (A) 2.79 X 10*3/uL (1.80-7.70); Neutrophils % (A) 51.8 %; Platelet Count 159 X 10*3/uL (140-440); RBC 4.65 X 10*6/uL (4.40-5.60); RDW 13.9 % (11.5-14.5); WBC 5.39 X 10*3/uL (4.50-10.00)
== END | disposition home or self-care (01) ==
LOC: LABWHC1 09:42
PROVIDERS: ATTEND Internal Medicine
DX: I50.30 Unspecified diastolic (congestive) heart failure (principal); E78.2 Mixed hyperlipidemia; Z94.1 Heart transplant status
CPT/HCPCS: 80048; 85025

== ENCOUNTER → 2023-07-29 | Outpatient (CLI) | payer MEDICARE, OTHER ==
[2023-07-29 10:44] LABS: Creatinine,Urine Random 122.8 mg/dL; Protein/Creatinine Ratio,Urine 0.057
[2023-07-29 13:02] LABS: Basophils # (A) 0.04 X 10*3/uL (0.00-0.10); Basophils % (A) 0.7 %; Eosinophils # (A) 0.14 X 10*3/uL (0.04-0.35); Eosinophils % (A) 2.6 %; HCT 44.3 % (39.6-50.0); HGB 14.6 g/dL (13.0-17.0); Lymphocytes # (A) 1.25 X 10*3/uL (0.90-5.00); Lymphocytes % (A) 22.8 %; MCH 30.2 pg (27.0-32.0); MCV 91.7 FL (80.0-97.0); Mean Platelet Volume 10.7 FL (9.5-12.2); Monocytes # (A) 0.83 X 10*3/uL (0.20-1.00); Monocytes % (A) 15.1 %; NRBC Per 100 WBC 0 X 10*3/uL (0.00-0.01); Neutrophils # (A) 3.12 X 10*3/uL (1.80-7.70); Neutrophils % (A) 56.8 %; Platelet Count 181 X 10*3/uL (140-440); RBC 4.83 X 10*6/uL (4.40-5.60); RDW 13.6 % (11.5-14.5); WBC 5.49 X 10*3/uL (4.50-10.00)
[2023-07-29 13:24] LABS: Blood Urea Nitrogen 20.1 mg/dL (9.0-27.0); Glucose 100 mg/dL (70-110); Phosphorus 2.7 mg/dL (2.4-5.1)
[2023-07-29 13:25] LABS: Albumin 4.4 g/dL (3.8-4.9); Calcium 9.5 mg/dL (8.7-10.3); Carbon Dioxide 23.1 mmol/L (21.6-31.8); Chloride 107 mmol/L (96-109); Potassium 4.2 mmol/L (3.5-5.5); Sodium 141 mmol/L (135-145)
[2023-07-29 13:45] LABS: % Iron Saturation 23.71 (15.00-50.00); ALT 18 U/L (10-49); AST 24 U/L (14-35); Albumin 4.3 g/dL (3.8-4.9); Albumin/Globulin Ratio 1.95 Ratio (1.60-3.17); Alkaline Phosphatase 78 U/L (41-126); Calcium 9.6 mg/dL (8.7-10.3); Carbon Dioxide 25.2 mmol/L (21.6-31.8); Chloride 106 mmol/L (96-109); Chol/HDL Ratio 2.52 Ratio; Ferritin 41.8 ng/mL (22.0-322.0); Globulin 2.2 g/dL (1.6-3.3); Glucose 97 mg/dL (70-110); Iron 83 UG/DL (65-175); LDL Cholesterol,Calculated 100.6 mg/dL (0.0-131.0); Potassium 4.2 mmol/L (3.5-5.5); Prostate Specific Antigen 6.55 ng/mL (0.000-4.500); Sodium 142 mmol/L (135-145); T4, Free (Free Thyroxine) 1.43 ng/dL (0.80-1.80); Total Bilirubin 0.5 mg/dL (0.3-1.2); Total Iron Binding Capacity 350 UG/DL (228-460); Total Protein 6.5 g/dL (6.2-8.2); VLDL Calculation 17.02 mg/dL (5.00-40.00)
[2023-07-29 17:12] LABS: Appearance,Urine Clear (Clear); Bilirubin,Urine Negative (Negative); Blood,Urine Negative (Negative); Color,Urine Yellow (Yellow); Ketones,Urine Negative (Negative); Nitrite,Urine Negative (Negative); PH, Urine 6.5; Specific Gravity,Urine 1.017 (1.001-1.030); Urobilinogen,Urine 0.2 E.U./DL
== END | disposition home or self-care (01) ==
LOC: LABWHC1 08:21
PROVIDERS: ATTEND Physician Assistant Medical
DX: Z13.1 Encounter for screening for diabetes mellitus (principal); Z12.5 Encounter for screening for malignant neoplasm of prostate; E78.5 Hyperlipidemia, unspecified; R53.83 Other fatigue
CPT/HCPCS: 36415; 80053; 80061; 80069; 80197; 81003; 82306; 82570; 82728; 83036; 83540; 83550; 84153; 84156; 84439; 84443; 85025

== ENCOUNTER → 2023-10-17 | Outpatient (CLI) | payer MEDICARE, OTHER ==
--- NOTE | 2023-10-17 16:50 | P.SLEEP ---
History of Present Illness H&P Date: 10/17/23 This is a very pleasant 58-year-old male patient with known history of obstructive sleep apnea. The patient's last evaluation with me was back in 2019. He was diagnosed having severe SUZANNA with an AHI of 45 and the patient was utilizing his CPAP machine at a pressure of 11 cm of water. Note that the patient had severe cardiomyopathy with chronic A-fib. His ejection fraction was around 10 to 15%. 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 His transplant was successful. The patient spent several months in the hospital at [facility] and ultimately was discharged. He is doing well for now without any signs of rejection. His AICD was also removed. Over the past years, the patient has remained very compliant with CPAP machine which is set at a pressure of 11 cm of water. His machine has exceeded its motor life span and the patient is interested in updating his CPAP unit. I checked the machine and the patient's compliance has been in the order of 100% and the patient's AHI while on treatment is down to 5.2. Leak is in the order of 55 L/min and the patient utilizing a Simplus medium size fullface mask. No major hypersomnia or sleepiness. No weight gain. Note that during his postoperative course, he encountered a CVA and a single episode of seizure and the patient is not taking any form of antiepileptic medications for now. Overall condition is stable and the patient has no other new complaints. Review of Systems Constitutional: Reports daytime sleepiness, Reports fatigue Eyes: denies as per HPI, denies blurred vision, denies bulging eye, denies decreased vision, denies diplopia, denies discharge, denies dry eye, denies irritation, denies itching, denies pain, denies photophobia, denies loss of peripheral vision, denies loss of vision, denies tunnel vision/blind spots Ears: deny: decreased hearing, ear discharge, earache, tinnitus Ears, nose, mouth and throat: Reports as per HPI Breasts: absent: as per HPI, gynecomastia Respiratory: Reports sleep apnea, Reports snoring Gastrointestinal: Reports as per HPI Genitourinary: Reports as per HPI Musculoskeletal: Reports as per HPI Musculoskeletal: absent: ankle pain, ankle stiffness, ankle swelling, as per H PI, elbow pain, elbow stiffness, elbow swelling, foot pain, foot stiffness, foot swelling, hand pain, hand stiffness, hand swelling, hip pain, hip stiffness, hip swelling, knee pain, knee stiffness, knee swelling, shoulder pain, shoulder stiffness, shoulder swelling, wrist pain, wrist stiffness, wrist swelling Integumentary: Reports as per HPI Neurological: Reports as per HPI Psychiatric: Reports as per HPI Endocrine: Reports as per HPI, Reports fatigue Hematologic/Lymphatic: Reports as per HPI Allergic/Immunologic: Reports as per HPI Past Medical History Past Medical History: Atrial Fibrillation, Atrial Flutter, Coronary Artery Disease (CAD), Chest Pain / Angina, Heart Failure, Hyperlipidemia, Hypertension, Sleep Apnea/CPAP/BIPAP Additional Past Medical History / Comment(s): ,HX OF GOUT, , USES C PAP AT NIGHT, histoplasmosis LT EYE. non sustained VT, SEE DR HINES'S H&P. VERTIGO. History of Any Multi-Drug Resistant Organisms: None Reported Past Surgical History: AICD, Cardiac Ablation, EPS, Heart Catheterization Additional Past Surgical History / Comment(s): HEART CATH X2; WISDOM TEETH REM MARYAM; CARDIOVERSION X3 ATTEMPTS - LAST 12/15/14, patient is post cardiac transplant/ Renal transaplant in 2021 Past Anesthesia/Blood Transfusion Reactions: No Reported Reaction Additional Past Anesthesia/Blood Transfusion Reaction / Comment(s): VERTIGO Type of Cardiac Device: AICD Device Placement Date:: 01/26/2015 Past Psychological History: No Psychological Hx Reported Smoking Status: Former smoker - Past Family History Mother Family Medical History: Cancer, CVA/TIA Additional Family Medical History / Comment(s): BREAST CA Father Family Medical History: Cancer Additional Family Medical History / Comment(s): LEUKEMIA Medications and Allergies Home Medications Medication Instructions Recorded Confirmed Type Escitalopram [Lexapro] 10 mg PO DAILY 01/30/17 07/15/22 History allopurinoL [Zyloprim] 25 mg PO DAILY 11/20/18 07/15/22 History Tacrolimus [Prograf] 2 mg PO BID 03/31/22 07/15/22 History dexAMETHasone [Decadron] 5 mg PO BID 03/31/22 07/15/22 History Alendronate Sodium [Fosamax] 70 mg PO WEEKLY 06/03/22 07/15/22 History Ascorbic Acid [Vitamin C] 500 mg PO BID 06/03/22 07/15/22 History Aspirin [Adult Low Dose Aspirin EC] 81 mg PO DAILY 06/03/22 07/15/22 History Calcium Citrate/Vitamin D3 1 each PO DAILY 06/03/22 07/15/22 History [Calcium Cit-Vit D3 500 mg Chew] Cephalexin [Keflex] 500 mg PO DAILY 06/03/22 07/15/22 History Magnesium Chloride [Mag64] 128 mg PO BID 06/03/22 07/15/22 History Omeprazole 20 mg PO DAILY 06/03/22 07/15/22 History Pravastatin Sodium [Pravachol] 20 mg PO DAILY 06/03/22 07/15/22 History Vitamin E (Dl,Tocopheryl Acet) 400 unit PO BID 06/03/22 07/15/22 History [Vitamin E (400 Iu = 180 mg)] predniSONE 5 mg PO DAILY 07/08/22 07/15/22 History Allergies Allergy/AdvReac Type Severity Reaction Status Date / Time Iodine and Iodide Containing Allergy Swelling Verified 09/13/22 03:27 Produc shellfish derived [Shellfish] Allergy Swelling Verified 09/13/22 03:27 dofetilide [From Tikosyn] AdvReac V-Tach/Kidney Verified 09/13/22 03:27 Failure heparin AdvReac Unknown Verified 09/13/22 03:27 Physical Exam BP is 106/74 with a pulse of 77 and a respiration of 18 with a temperature 97.6 and the pulse ox is 98% room air oxygen. Weight is 188 pounds with a body mass index of 29.4 and the size of the neck to 16.5 inches and the patient has an Hopedale score of 9 The patient appeared well nourished and normally developed. Vital signs as documented. Head exam is unremarkable. No scleral icterus or corneal arcus noted. Neck is without jugular venous distension, thyromegaly, or carotid bruits. Carotid upstrokes are brisk bilaterally. Lungs are clear to auscultation and percussion. Cardiac exam reveals the PMI to be normally sized and situated. Rhythm is regular. First and second heart sounds normal. No murmurs, rubs or gallops. Abdominal exam reveals normal bowel sounds, no masses, no organomegaly and no aortic enlargement. Extremities are nonedematous and both femoral and pedal pulses are normal. Examination of the skin revealed no evidence of significant rashes, suspicious appearing nevi or other concerning lesions. Neurologically, the patient is awake and alert and the patient does not have any focal neurological deficit. Cranial nerves are essentially intact. Assessment and Plan Plan: Severe symptomatic obstructive sleep apnea with an AHI of 45. The patient underwent successful CPAP therapy over the years at a pressure of 11 cm of water. His machine is malfunctioning and outdated and it has exceeded its motor life span. The patient is interested in updating his CPAP unit. He has been working with [facility] Severe nonischemic cardiomyopathy and the patient underwent cardiac transplantation Acute cardiorenal syndrome with subsequent renal failure and the patient underwent renal transplantation CVA, currently asymptomatic without any neurologic deficits Hyperlipidemia Acid reflux BPH Chronic immunosuppression related to transplantation the patient is currently on a combination of tacrolimus and low-dose prednisone. Plan I am going to update the patient's CPAP unit. The patient is going to be given a new generation ResMed 11 at the same pressure setting of 11 cm of water. Will keep the same mask interface for the patient. The patient will get his new machine through [employer] and the patient will see me back in follow-up in 30-90 days for a compliancy check. Further adjustments to be done based on his clinical response. Sleep Note - Sleep Note Sleep Note: Temperature: Pulse Rate: Respiratory Rate: Blood Pressure: SpO2: Height: Weight: BMI: Neck Circumference:
== END ==
LOC: 3 N SLEEP 13:20
PROVIDERS: ATTEND Internal Medicine Critical Care Medicine
DX: G47.33 Obstructive sleep apnea (adult) (pediatric) (principal); E78.5 Hyperlipidemia, unspecified; K21.9 Gastro-esophageal reflux disease without esophagitis; N40.0 Benign prostatic hyperplasia without lower urinary tract symptoms; I42.9 Cardiomyopathy, unspecified; N17.9 Acute kidney failure, unspecified; D84.9 Immunodeficiency, unspecified; I48.91 Unspecified atrial fibrillation; I48.92 Unspecified atrial flutter; I25.10 Atherosclerotic heart disease of native coronary artery without angina pectoris; I11.0 Hypertensive heart disease with heart failure; I50.9 Heart failure, unspecified; G47.30 Sleep apnea, unspecified; Z86.73 Personal history of transient ischemic attack (TIA), and cerebral infarction without residual deficits; Z94.1 Heart transplant status; Z94.0 Kidney transplant status; Z87.891 Personal history of nicotine dependence; Z91.041 Radiographic dye allergy status; Z88.8 Allergy status to other drugs, medicaments and biological substances; Z91.013 Allergy to seafood; Z79.82 Long term (current) use of aspirin; Z79.899 Other long term (current) drug therapy
CPT/HCPCS: 99211

== ENCOUNTER → 2023-11-14 | Outpatient (CLI) | payer MEDICARE, OTHER ==
--- NOTE | 2023-11-14 15:32 | US ---
EXAMINATION TYPE: US venous doppler duplex LE LT DATE OF EXAM: 11/14/2023 2:12 PM COMPARISON: NONE CLINICAL INDICATION: Male, 63 years old with history of R22.42 SWELLING MASS LUMP; left leg pain lump SIDE PERFORMED: Left TECHNIQUE: The lower extremity deep venous system is examined utilizing real time linear array sonog arvind with graded compression, doppler sonography and color-flow sonography. VESSELS IMAGED: Common Femoral Vein Deep Femoral Vein Greater Saphenous Vein * Femoral Vein Popliteal Vein Small Saphenous Vein * Proximal Calf Veins (* superficial vessels) Left Leg: Negative for DVT IMPRESSION: Grayscale, color doppler, spectral doppler imaging performed of the deep veins of the lo wer extremities. There is normal flow, compressibility, vascular waveforms.
== END | disposition home or self-care (01) ==
LOC: RADUSWWP 13:47
PROVIDERS: ATTEND Family Medicine
DX: R22.42 Localized swelling, mass and lump, left lower limb (principal); M79.605 Pain in left leg

== ENCOUNTER → 2024-05-14 | Outpatient (CLI) | payer MEDICARE, OTHER ==
[2024-05-14 16:05] LABS: Basophils # (A) 0.04 X 10*3/uL (0.00-0.10); Basophils % (A) 0.7 %; Eosinophils % (A) 1.7 %; HCT 44.7 % (39.6-50.0); HGB 15.3 g/dL (13.0-17.0); Immature Platelet Fraction 14.7 % (1.1-6.1); Lymphocytes # (A) 1.37 X 10*3/uL (0.90-5.00); Lymphocytes % (A) 23.4 %; MCH 32.3 pg (27.0-32.0); MCHC 34.2 g/dL (32.0-37.0); MCV 94.5 FL (80.0-97.0); Monocytes # (A) 0.75 X 10*3/uL (0.20-1.00); Monocytes % (A) 12.8 %; NRBC Per 100 WBC 0 X 10*3/uL (0.00-0.01); Neutrophils # (A) 3.51 X 10*3/uL (1.80-7.70); Neutrophils % (A) 59.9 %; Platelet Count 16 X 10*3/uL (140-440); RBC 4.73 X 10*6/uL (4.40-5.60); RBC Morphology Normal (Normal); RDW 13.2 % (11.5-14.5); WBC 5.86 X 10*3/uL (4.50-10.00)
== END | disposition home or self-care (01) ==
LOC: LABWHC1 09:58
PROVIDERS: ATTEND Internal Medicine Nephrology
DX: T86.20 Unspecified complication of heart transplant (principal); Z94.0 Kidney transplant status; Z79.899 Other long term (current) drug therapy; I50.30 Unspecified diastolic (congestive) heart failure; E78.2 Mixed hyperlipidemia
CPT/HCPCS: 36415; 85025

== ENCOUNTER → 2024-05-27 | Outpatient (CLI) | payer MEDICARE, OTHER ==
[2024-05-27 13:19] LABS: HGB 14.9 g/dL (13.0-17.0); MCHC 33.9 g/dL (32.0-37.0); MCV 94.4 FL (80.0-97.0); Mean Platelet Volume 12.3 FL (9.5-12.2); NRBC Per 100 WBC 0 X 10*3/uL (0.00-0.01); Platelet Count 83 X 10*3/uL (140-440); RBC 4.66 X 10*6/uL (4.40-5.60); RDW 13.2 % (11.5-14.5); WBC 5.13 X 10*3/uL (4.50-10.00)
[2024-05-27 13:47] LABS: BUN/Creat Ratio 17.12 Ratio (12.00-20.00); Blood Urea Nitrogen 27.4 mg/dL (9.0-27.0); Calcium 8.9 mg/dL (8.7-10.3); Chloride 106 mmol/L (96-109); Glucose 86 mg/dL (70-110); Magnesium 1.6 mg/dL (1.5-2.4); Potassium 4.5 mmol/L (3.5-5.5); Sodium 140 mmol/L (135-145)
[2024-05-27 15:30] LABS: Basophils # (M) 0 X 10*3/uL (0.00-0.10); Eosinophils # (M) 0.05 X 10*3/uL (0.04-0.35); Lymphocytes # (M) 0.97 X 10*3/uL (0.90-5.00); Metamyelocytes % 1 % (0-0); Monocytes # (M) 0.51 X 10*3/uL (0.20-1.00); Myelocytes % 3 % (0-0); Neutrophils # (M) 3.39 X 10*3/uL (1.80-7.70); Neutrophils % (M) 66 %; RBC Morphology Normal (Normal)
== END | disposition home or self-care (01) ==
LOC: LABWHC1 09:04
PROVIDERS: ATTEND Internal Medicine
DX: E78.2 Mixed hyperlipidemia (principal); I50.30 Unspecified diastolic (congestive) heart failure; T86.23 Heart transplant infection; T86.21 Heart transplant rejection; T86.22 Heart transplant failure
CPT/HCPCS: 36415; 80048; 83735; 85025

== ENCOUNTER → 2024-06-11 | Outpatient (CLI) | payer MEDICARE, OTHER ==
[2024-06-11 18:37] LABS: BUN/Creat Ratio 11.93 Ratio (12.00-20.00); Blood Urea Nitrogen 17.9 mg/dL (9.0-27.0); Calcium 9.1 mg/dL (8.7-10.3); Carbon Dioxide 19.1 mmol/L (21.6-31.8); Chloride 105 mmol/L (96-109); Glucose 88 mg/dL (70-110); Phosphorus 2.8 mg/dL (2.4-5.1); Potassium 4.2 mmol/L (3.5-5.5); Sodium 141 mmol/L (135-145)
== END | disposition home or self-care (01) ==
LOC: LABWHC1 11:12
PROVIDERS: ATTEND Internal Medicine Nephrology
CPT/HCPCS: 36415; 80048; 80069

== ENCOUNTER → 2024-06-26 | Outpatient (CLI) | payer MEDICARE, OTHER ==
--- NOTE | 2024-06-26 14:27 | BD ---
EXAMINATION TYPE: Axial Bone Density DATE OF EXAM: 06/26/2024 CLINICAL HISTORY: 63 years old Male. ICD-10 CODE: Z79.52 SURGERY MANAGER STEROID USE , Z78.0 Height: 66 Weight: 184 FRAX RISK QUESTIONS: Glucocorticoids (More than 3mos): yes (Ex: prednisone, prednisolone, methylprednisolone, dexamethasone, and hydrocortisone). RISK FACTORS HISTORY OF: kidney transplant, compleat heart transplant MEDICATIONS: bp med, anti rejection meds, steroids, heart and kidney, hx of kidney transplant, EXAM MEASUREMENTS: Bone mineral densitometry was performed using the [employer] System. Bone mineral density as measured about the Lumbar spine is: ----- L1-L4(G/cm2): 1.210 T Score Values are as follows: ----- L1: 0.3 ----- L2: 0.0 ----- L3: 0.9 ----- L4: -0.4 ----- L1-L4: 0.3 Z Score Values are as follows: ----- L1: 0.3 ----- L2: -0.1 ----- L3: 0.9 ----- L4: -0.5 ----- L1-L4: 0.2 Bone mineral density is his first dexa study at [facility]. Bone mineral density about the R hip (g/cm2): 0.738 Bone mineral density about the L hip (g/cm2): 0.804 T Score values are as follows: -----R Neck: -2.3 -----L Neck: -2.3 -----R Total: -2.1 -----L Total: -1.6 Z Score values are as follows: -----R Neck: -1.8 -----L Neck: -1.8 -----R Total: -2.1 -----L Total: -1.6 Bone mineral density first study done at [facility]. FRAX%s: The graph provided illustrates a 15.0% chance for a major osteoporotic fx and a 5.0% chance f or the hips probability for fx in 10 years time. IMPRESSION: Osteopenia (T Score between -2.5 and -1). There is slightly increased risk of fracture and the patient may be considered for treatment. Re-Screen 2-5 years. NOTE: T-SCORE=SD OF THE YOUNG ADULT MEAN. [facility], , 06/26/2024 2:24 PM
== END | disposition home or self-care (01) ==
LOC: RADBDWWP 11:30
PROVIDERS: ATTEND Internal Medicine
CPT/HCPCS: 77080

== ENCOUNTER → 2024-08-12 | Outpatient (CLI) | payer MEDICARE, OTHER ==
[2024-08-12 15:16] LABS: BUN/Creat Ratio 13.64 Ratio (12.00-20.00); Blood Urea Nitrogen 19.1 mg/dL (9.0-27.0); Calcium 9.3 mg/dL (8.7-10.3); Carbon Dioxide 22.4 mmol/L (21.6-31.8); Chloride 105 mmol/L (96-109); Glucose 94 mg/dL (70-110); Potassium 4.2 mmol/L (3.5-5.5); Sodium 140 mmol/L (135-145)
== END | disposition home or self-care (01) ==
LOC: LABWHC1 11:58
PROVIDERS: ATTEND Internal Medicine
DX: T86.21 Heart transplant rejection (principal); T86.22 Heart transplant failure; T86.23 Heart transplant infection; T86.290 Cardiac allograft vasculopathy; E78.2 Mixed hyperlipidemia; I50.30 Unspecified diastolic (congestive) heart failure
CPT/HCPCS: 36415; 80048

== ENCOUNTER → 2024-09-09 | Outpatient (CLI) | payer MEDICARE, OTHER ==
[2024-09-09 20:58] LABS: HGB 14.8 g/dL (13.0-17.0); MCH 32.4 pg (27.0-32.0); MCHC 33.6 g/dL (32.0-37.0); MCV 96.3 FL (80.0-97.0); Mean Platelet Volume 10.6 FL (9.5-12.2); NRBC Per 100 WBC 0 X 10*3/uL (0.00-0.01); Platelet Count 161 X 10*3/uL (140-440); RBC 4.57 X 10*6/uL (4.40-5.60); RDW 13.2 % (11.5-14.5); WBC 2.43 X 10*3/uL (4.50-10.00)
[2024-09-10 01:28] LABS: Basophils # (A) 0.02 X 10*3/uL (0.00-0.10); Basophils % (A) 0.8 %; Eosinophils # (A) 0.09 X 10*3/uL (0.04-0.35); Eosinophils % (A) 3.7 %; Lymphocytes # (A) 1.04 X 10*3/uL (0.90-5.00); Lymphocytes % (A) 42.8 %; Monocytes # (A) 0.37 X 10*3/uL (0.20-1.00); Monocytes % (A) 15.2 %; Neutrophils # (A) 0.83 X 10*3/uL (1.80-7.70); Neutrophils % (A) 34.2 %
== END | disposition home or self-care (01) ==
LOC: LABWHC1 12:53
PROVIDERS: ATTEND Internal Medicine Nephrology
DX: D69.6 Thrombocytopenia, unspecified (principal); B34.8 Other viral infections of unspecified site; Z94.0 Kidney transplant status
CPT/HCPCS: 36415; 85025

== ENCOUNTER → 2024-10-28 | Outpatient (CLI) | payer MEDICARE, OTHER ==
[2024-10-28 13:20] LABS: Appearance,Urine Clear (Clear); Bilirubin,Urine Negative (Negative); Blood,Urine Negative (Negative); Color,Urine Yellow; Glucose,Urine (UA) Negative (Negative); Ketones,Urine Negative (Negative); Leukocyte Esterase,Urine Negative (Negative); Nitrite,Urine Negative (Negative); PH, Urine 5.5 (5.0-8.0); Protein,Urine Negative (Negative); Urobilinogen,Urine <2.0 mg/dL (<2.0)
[2024-10-28 16:41] LABS: Creatinine,Urine Random 120.3 mg/dL; Protein/Creatinine Ratio,Urine 0.075
[2024-10-28 16:45] LABS: Albumin 4.4 g/dL (3.8-4.9); Blood Urea Nitrogen 23.1 mg/dL (9.0-27.0); Calcium 9.6 mg/dL (8.7-10.3); Carbon Dioxide 25.9 mmol/L (21.6-31.8); Chloride 104 mmol/L (96-109); Glucose 87 mg/dL (70-110); Phosphorus 2.3 mg/dL (2.4-5.1); Potassium 4.6 mmol/L (3.5-5.5); Sodium 139 mmol/L (135-145)
[2024-10-28 17:10] LABS: HGB 15.1 g/dL (13.0-17.0); MCHC 32.8 g/dL (32.0-37.0); MCV 97.5 FL (80.0-97.0); Mean Platelet Volume 10.9 FL (9.5-12.2); NRBC Per 100 WBC 0 X 10*3/uL (0.00-0.01); Platelet Count 157 X 10*3/uL (140-440); RBC 4.72 X 10*6/uL (4.40-5.60); RDW 13.1 % (11.5-14.5); WBC 6.35 X 10*3/uL (4.50-10.00)
[2024-10-28 17:44] LABS: Basophils # (M) 0.06 X 10*3/uL (0.00-0.10); Eosinophils # (M) 0.19 X 10*3/uL (0.04-0.35); Lymphocytes # (M) 1.27 X 10*3/uL (0.90-5.00); Metamyelocytes % 1 % (0-0); Monocytes # (M) 0.95 X 10*3/uL (0.20-1.00); Neutrophils # (M) 3.81 X 10*3/uL (1.80-7.70); Neutrophils % (M) 60 %
[2024-10-29 12:41] LABS: BK Virus DNA PCR, Qualitative DETECTED (Not detected); LOG BKV Copies/mL 3.42 (<2.10)
== END | disposition home or self-care (01) ==
LOC: LABWHC1 11:01
PROVIDERS: ATTEND Physician Assistant
DX: D69.6 Thrombocytopenia, unspecified (principal)
CPT/HCPCS: 36415; 80069; 81003; 82570; 84156; 85025

== ENCOUNTER → 2024-11-06 | Outpatient (CLI) | payer MEDICARE, OTHER | END | disposition home or self-care (01) | LOC: LABWHC1 10:51 | PROVIDERS: ATTEND Internal Medicine Nephrology | DX: D84.9 Immunodeficiency, unspecified (principal); Z94.0 Kidney transplant status | CPT/HCPCS: 36415 ==

== ENCOUNTER → 2024-11-15 | Outpatient (CLI) | payer MEDICARE ==
[2024-11-15 11:51] LABS: Creatinine,Urine Random 118.6 mg/dL; Protein/Creatinine Ratio,Urine 0.051
[2024-11-15 14:55] LABS: HCT 45.4 % (39.6-50.0); HGB 15.2 g/dL (13.0-17.0); MCH 32.3 pg (27.0-32.0); MCHC 33.5 g/dL (32.0-37.0); MCV 96.4 FL (80.0-97.0); Mean Platelet Volume 10.5 FL (9.5-12.2); NRBC Per 100 WBC 0 X 10*3/uL (0.00-0.01); Platelet Count 164 X 10*3/uL (140-440); RBC 4.71 X 10*6/uL (4.40-5.60); WBC 3.97 X 10*3/uL (4.50-10.00)
[2024-11-15 15:20] LABS: Albumin 4.2 g/dL (3.8-4.9); BUN/Creat Ratio 15.87 Ratio (12.00-20.00); Blood Urea Nitrogen 23.8 mg/dL (9.0-27.0); Calcium 9.1 mg/dL (8.7-10.3); Carbon Dioxide 24.9 mmol/L (21.6-31.8); Chloride 108 mmol/L (96-109); Glucose 94 mg/dL (70-110); Phosphorus 2.8 mg/dL (2.4-5.1); Potassium 4.2 mmol/L (3.5-5.5); Sodium 143 mmol/L (135-145)
[2024-11-15 15:47] LABS: Basophils # (M) 0 X 10*3/uL (0.00-0.10); Eosinophils # (M) 0.16 X 10*3/uL (0.04-0.35); Lymphocytes # (M) 0.91 X 10*3/uL (0.90-5.00); Monocytes # (M) 0.75 X 10*3/uL (0.20-1.00); Neutrophils % (M) 53 %; RBC Morphology Normal (Normal)
[2024-11-15 16:06] LABS: Appearance,Urine Clear (Clear); Bilirubin,Urine Negative (Negative); Blood,Urine Negative (Negative); Color,Urine Yellow (Yellow); Ketones,Urine Negative (Negative); Nitrite,Urine Negative (Negative); Specific Gravity,Urine 1.019 (1.001-1.030); Urobilinogen,Urine 0.2 E.U./DL
== END | disposition home or self-care (01) ==
LOC: LABWHC1 10:55
PROVIDERS: ATTEND Internal Medicine Nephrology
DX: D84.9 Immunodeficiency, unspecified (principal); Z94.0 Kidney transplant status
CPT/HCPCS: 36415; 80069; 81003; 82570; 84156; 85025